=== PATIENT | female | born 1950 | race Caucasian/White ===

== ENCOUNTER 2019-08-11 21:26 | Inpatient (IN) | payer MEDICARE, MEDICAID ==
[2019-08-11] MEDS ORDERED: Ondansetron 4 MG/2 ML SDV IVPUSH ONE (21:54)
--- NOTE | 2019-08-11 21:58 | EDM.PDOC ---
ED HPI GENERAL MEDICAL PROBLEM - General Chief Complaint: Gastrointestinal Problem Stated Complaint: MEDICAL Time Seen by Provider: 08/11/19 21:40 Source of Information: Reports: Patient, EMS, Family History Limitations: Reports: No Limitations - History of Present Illness INITIAL COMMENTS - FREE TEXT/NARRATIVE: 69-year-old female who has had abdominal symptoms for the past month including weight loss and persistent diarrhea, over the past 2 days has had decreased bowel movements but increased abdominal distention and pain. Today she has developed some significant nausea and vomiting and even more pain. No back pain , urinary symptoms, chest pain or shortness of breath. She has a gastroenterology consult on Tuesday. Onset: Gradual Duration: Day(s): (Pain and distention for 2 to 3 days, nausea and vomiting for 12 hours) Location: Reports: Abdomen Associated Symptoms: Reports: Other (Rheumatoid arthritis and migraine headaches ). Denies: Fever/Chills abd Pain Score (Numeric/FACES): 6 - Related Data Allergies Allergy/AdvReac Type Severity Reaction Status Date / Time No Known Allergies Allergy Verified 08/11/19 21:31 Home Meds: Home Meds Bismuth Subsalicylate [Pepto-Bismol] 15 ml PO TID PRN 08/11/19 [History] Loperamide HCl [Imodium A-D] 2 mg PO BID PRN 08/11/19 [History] ZOLMitriptan [Zolmitriptan] 5 mg PO DAILY PRN 08/12/19 [History] Past Medical History Gastrointestinal History: Reports: Chronic Diarrhea DISPATCHER RELAY History: Reports: Neurological History: Reports: Migraines Endocrine/Metabolic History: Reports: Other (See Below) Other Endocrine/Metabolic History: hx Graves disease - Past Surgical History GI Surgical History: Reports: Appendectomy, Small Bowel Endocrine Surgical History: Reports: Other (See Below) Other Endocrine Surgeries/Procedures: thyroid radiation Social & Family History - Tobacco Use Smoking Status *Q: Current Every Day Smoker Years of Tobacco use: 50 Packs/Tins Daily: 0.5 - Caffeine Use Caffeine Use: Reports: Tea - Recreational Drug Use Recreational Drug Use: No ED ROS GENERAL - Review of Systems Review Of Systems: See Below Constitutional: Reports: Malaise, Decreased Appetite. Denies: Fever, Chills HEENT: Reports: No Symptoms Respiratory: Denies: Shortness of Breath Cardiovascular: Denies: Chest Pain GI/Abdominal: Reports: Abdominal Pain, Diarrhea (Diarrhea for the past month, but not for the past 2 to 3 days), Distension (Feels bloated), Nausea, Vomiting : Reports: No Symptoms Musculoskeletal: Reports: Other (Rheumatoid arthritis symptoms) Neurological: Reports: Headache ED EXAM, GI/ABD - Physical Exam Exam: See Below Exam Limited By: No Limitations General Appearance: Alert, No Apparent Distress Eyes: Bilateral: Normal Appearance (No jaundice) Throat/Mouth: Other (Normal-appearing hydration, some dental decay) Head: Atraumatic Respiratory/Chest: No Respiratory Distress, Lungs Clear Cardiovascular: Regular Rate, Rhythm, Tachycardia (Mild tachycardia) GI/Abdominal Exam: Tender (Very tender to palpation, especially periumbilical into the left upper quadrant. Some guarding is present. Abdomen does feel distended), Abnormal Bowel Sounds (Hypoactive bowel sounds) Extremities: Normal Inspection Neurological: Alert, Oriented, No Motor/Sensory Deficits Psychiatric: Flat Affect Skin Exam: Warm, Dry Course - Vital Signs Last Recorded V/S: Last Vital Signs Temp 97.2 F 08/12/19 13:30 Pulse 71 08/12/19 14:15 Resp 16 08/12/19 14:15 BP 115/55 L 08/12/19 14:15 Pulse Ox 98 08/12/19 14:15 - Orders/Labs/Meds Orders: Medication Orders Ropivacaine 24 ml/Dexamethasone 8 mg/Epinephrine HCl 0.4 mg/ Sodium Chloride 53.6 ml 0 ml NERVRT ASDIRECTED [facility] Last Admin: 08/12/19 11:51 Dose: 80 syringe Diphenhydramine HCl (Benadryl) 25 mg IVPUSH Q4H PRN PRN Reason: Itching Promethazine HCl 12.5 mg/ (Sodium Chloride) 50.5 mls @ 200 mls/hr IV Q8H PRN PRN Reason: Nausea/Vomiting Sodium Chloride (Normal Saline) 1,000 mls @ 125 mls/hr IV ASDIRECTED [facility] Last Admin: 08/12/19 15:11 Dose: 125 mls/hr Infusion: 08/12/19 15:11 Dose: 125 mls/hr Admin: 08/12/19 08:10 Dose: 125 mls/hr Infusion: 08/12/19 08:10 Dose: 125 mls/hr Admin: 08/12/19 01:02 Dose: 125 mls/hr Cefazolin Sodium/Dextrose 1 gm (/ Premix) 50 mls @ 100 mls/hr IV Q8H DEBI Morphine Sulfate (Morphine) 3 mg IVPUSH Q1H PRN PRN Reason: SEVERE PAIN Last Admin: 08/12/19 09:12 Dose: 3 mg Nicotine (Habitrol) 14 mg TRDERM DAILY PRN PRN Reason: tobacco user Ondansetron HCl (Zofran) 4 mg IVPUSH Q8H PRN PRN Reason: Nausea/Vomiting Last Admin: 08/12/19 12:27 Dose: 4 mg Admin: 08/12/19 04:24 Dose: 4 mg Scopolamine (Transderm-Scop) 1.5 mg TOP Q72H PRN PRN Reason: Nausea Labs: Laboratory Tests 08/11/19 08/11/19 Range/Units 21:53 22:06 WBC 15.8 H (4.5-11.0) K/uL RBC 4.98 (3.30-5.50) M/uL Hgb 15.6 H (12.0-15.0) g/dL Hct 46.4 (36.0-48.0) % MCV 93 (80-98) fL MCH 31 (27-31) pg MCHC 34 (32-36) % Plt Count 422 H (150-400) K/uL Neut % (Auto) 79 H (36-66) % Lymph % (Auto) 10 L (24-44) % [place] % (Auto) 11 H (2-6) % Eos % (Auto) 1 L (2-4) % Baso % (Auto) 0 (0-1) % Sodium 140 (140-148) mmol/L Potassium 4.0 (3.6-5.2) mmol/L Chloride 98 L (100-108) mmol/L Carbon Dioxide 34 H (21-32) mmol/L Anion Gap 12.0 (5.0-14.0) mmol/L BUN 15 (7-18) mg/dL Creatinine 0.8 (0.6-1.0) mg/dL Est Cr Clr Drug Dosing 50.33 mL/min Estimated GFR (MDRD) > 60 (>60) Glucose 128 H (74-106) mg/dL Calcium 9.2 (8.5-10.1) mg/dL Total Bilirubin 0.3 (0.2-1.0) mg/dL AST 18 (15-37) U/L ALT 16 (12-78) U/L Alkaline Phosphatase 85 (46-116) U/L Total Protein 7.1 (6.4-8.2) g/dL Albumin 3.4 (3.4-5.0) g/dL Globulin 3.7 H (2.3-3.5) g/dL Albumin/Globulin Ratio 0.9 L (1.2-2.2) Lipase 82 (73-393) U/L Meds: Medications Generic Name Dose Route Start Last Admin Trade Name Freq PRN Reason Stop Dose Admin Ropivacaine 24 ml/ 0 ml 08/12/19 11:00 08/12/19 11:51 Dexamethasone 8 mg/ NERVRT 80 syringe Epinephrine HCl 0.4 mg/ Sodium ASDIRECTED DEBI Administration Chloride 53.6 ml Diphenhydramine HCl 25 mg 08/11/19 23:51 Benadryl IVPUSH Q4H PRN Itching Promethazine HCl 12.5 mg/ 50.5 mls @ 200 mls/hr 08/11/19 23:51 Sodium Chloride IV Q8H PRN Nausea/Vomiting Sodium Chloride 1,000 mls @ 125 mls/hr 08/11/19 23:45 08/12/19 15:11 Normal Saline IV 125 mls/hr ASDIRECTED DEBI Administration Cefazolin Sodium/Dextrose 1 gm 50 mls @ 100 mls/hr 08/12/19 18:00 / Premix IV Q8H DEBI Morphine Sulfate 3 mg 08/12/19 08:00 08/12/19 09:12 Morphine IVPUSH 3 mg Q1H PRN Administration SEVERE PAIN Nicotine 14 mg 08/11/19 23:51 Habitrol TRDERM DAILY PRN tobacco user Ondansetron HCl 4 mg 08/11/19 23:51 08/12/19 12:27 Zofran IVPUSH 4 mg Q8H PRN Administration Nausea/Vomiting Scopolamine 1.5 mg 08/11/19 23:51 Transderm-Scop TOP Q72H PRN Nausea Discontinued Medications Generic Name Dose Route Start Last Admin Trade Name Freq PRN Reason Stop Dose Admin Bupivacaine HCl/Epinephrine Bitart Confirm 08/12/19 10:02 08/12/19 11:55 Marcaine 0.5%/Epinephrine 1:200,000 Administered 08/12/19 10:03 40 ml Dose Administration 50 ml .ROUTE .STK-MED ONE Cefazolin Sodium Confirm 08/12/19 11:01 Ancef Administered 08/12/19 11:02 Dose 2 gm .ROUTE .STK-MED ONE Dexamethasone Confirm 08/12/19 10:32 Dexamethasone Administered 08/12/19 10:33 Dose 4 mg .ROUTE .STK-MED ONE Fentanyl Confirm 08/12/19 10:31 Sublimaze Administered 08/12/19 10:32 Dose 250 mcg .ROUTE .STK-MED ONE Glycopyrrolate Confirm 08/12/19 10:32 Robinul Administered 08/12/19 10:33 Dose 1 mg .ROUTE .STK-MED ONE Sodium Chloride 1,000 mls @ 500 mls/hr 08/11/19 22:00 08/11/19 22:07 Normal Saline IV 500 mls/hr ASDIRECTED DEBI Administration Metronidazole 500 mg/ Premix 100 mls @ 100 mls/hr 08/12/19 11:15 08/12/19 11: 05 IV 08/12/19 12:14 100 mls/hr ONETIME ONE Administration Sodium Chloride Confirm 08/12/19 11:01 Normal Saline Administered 08/12/19 11:02 Dose 10 mls @ as directed .ROUTE .STK-MED ONE Lidocaine HCl 10 ml 08/11/19 23:49 08/12/19 00:01 Xylocaine 2% Jelly MUCMEM 08/11/19 23:50 10 ml ONETIME ONE Administration Midazolam HCl 3 mg 08/11/19 23:49 08/12/19 00:03 Versed 1 Mg/Ml IVPUSH 08/11/19 23:50 3 mg ONETIME ONE Administration Morphine Sulfate 1 - 3 mg 08/12/19 00:43 08/12/19 04:02 Morphine IVPUSH 2 mg Q1H PRN Administration Pain Neostigmine Methylsulfate Confirm 08/12/19 10:32 Neostigmine Administered 08/12/19 10:33 Dose 5 mg .ROUTE .STK-MED ONE Ondansetron HCl 4 mg 08/11/19 21:54 08/11/19 22:06 Zofran IVPUSH 08/11/19 21:55 4 mg ONETIME ONE Administration Ondansetron HCl Confirm 08/12/19 10:32 Zofran Administered 08/12/19 10:33 Dose 4 mg .ROUTE .STK-MED ONE Propofol Confirm 08/12/19 10:32 Diprivan 20 Ml Administered 08/12/19 10:33 Dose 200 mg .ROUTE .STK-MED ONE Rocuronium [place] Confirm 08/12/19 10:32 Zemuron Administered 08/12/19 10:33 Dose 50 mg .ROUTE .STK-MED ONE Succinylcholine Chloride Confirm 08/12/19 10:32 Quelicin Administered 08/12/19 10:33 Dose 200 mg .ROUTE .STK-MED ONE - Re-Assessments/Exams Free Text/Narrative Re-Assessment/Exam: 08/11/19 21:57 An IV was started and the patient was hydrated with 500 cc of normal saline an hour. CBC CMP and lipase were obtained and a CT of the abdomen without contrast will be obtained. Patient presents with a likely bowel obstruction pattern. 08/11/19 23:10 Impression: 1.Moderate to high-grade distal small bowel obstruction. Transition point suspected in the central lower abdomen. There is moderate amount of free fluid and mesenteric edema. Surgical consultation would be recommended. 2.Colonic bowel wall thickening of the sigmoid colon and descending colon could be related to colitis. 08/11/19 23:18 Above findings were discussed with Dr. Bee, he kindly agreed, patient will be given an NG, fluid, pain control and reassessment in the morning. 08/11/19 23:50 Patient had a significant amount of discomfort and could not cooperate with placing the NG tube. She was then given topical lidocaine intranasally and 3 mg of IV Versed as an anxiolytic to help with the placement. Departure - Departure Time of Disposition: 00:21 Disposition: Admitted As Inpatient 68 Clinical Impression: Small bowel obstruction Abdominal pain Qualifiers: Abdominal location: generalized Qualified Code(s): R10.84 - Generalized abdominal pain - Discharge Information Sepsis Event Note - Evaluation Sepsis Screening Result: No Definite Risk - Focused Exam Date Exam was Performed: 08/12/19 Time Exam was Performed: 17:25
[2019-08-11] MEDS ORDERED: Sodium Chloride 0.9% 1,000 ML IV SCH (22:00)
--- NOTE | 2019-08-11 23:05 | CRLCT ---
INDICATION: Pain abdominal distention. TECHNIQUE: Noncontrast CT abdomen and pelvis no. COMPARISON: Studies are available. FINDINGS: Heart size is normal clear there is no pericardial effusion. Emphysema. Unenhanced liver demonstrates low-attenuation lesions in the liver incompletely assessed but may represent possible cysts. Liver granuloma. Gallbladder appears unremarkable. Common bile duct is mildly prominent. Adrenal glands are unremarkable. Small hiatal hernia. No abdominal aortic aneurysm. Nonobstructing right lower pole calculus. Kidneys are unremarkable there is no hydronephrosis. There are diffuse dilated small bowel loops measure up to 5 cm. The distal small bowel loops are decompressed. Probable transition point in the lower central abdomen, series 3 image 86 series 2 image 171. There is fluid in the abdomen and pelvis. Mesenteric edema. No free air. There is diffuse colonic bowel wall thickening in the sigmoid colon and descending colon which may be related to colitis. No free air. Rounded left uterine density could be related to a fibroid. No suspicious bony lesions. Impression: 1.Moderate to high-grade distal small bowel obstruction. Transition point suspected in the central lower abdomen. There is moderate amount of free fluid and mesenteric edema. Surgical consultation would be recommended. 2.Colonic bowel wall thickening of the sigmoid colon and descending colon could be related to colitis. Please note that all CT scans at this facility use dose modulation, iterative reconstruction, and/or weight-based dosing when appropriate to reduce radiation dose to as low as reasonably achievable. Dictated by Ashley Zamora MD @ Aug 11 2019 10:43PM Signed by Dr. Ashley Zamora @ Aug 11 2019 11:05PM
[2019-08-11] MEDS ORDERED: Midazolam 1 MG/ML 5 ML SDV IVPUSH ONE (23:49)
[2019-08-11] MEDS ORDERED: Lidocaine 2% Jelly 10 ML Urojet MUCMEM ONE (23:49)
[2019-08-11] MEDS ORDERED: Promethazine 12.5 MG in Sodium Chloride 0.9% 50 ML IV PRN (23:51)
[2019-08-11] MEDS ORDERED: Nicotine 14 MG/24 Hr Patch TRDERM PRN (23:51)
[2019-08-11] MEDS ORDERED: Scopolamine 1.5 MG Transdermal Patch TOP PRN (23:51)
[2019-08-11] MEDS ORDERED: diphenhydrAMINE 50 MG/ML SDV IVPUSH PRN (23:51)
[2019-08-12] MEDS: Sodium Chloride 0.9% 1,000 ML IV SCH ×4 (01:02→23:36)
[2019-08-12] MEDS: Morphine 4 MG/ML Syringe IVPUSH PRN ×5 (01:22→23:41)
[2019-08-12] MEDS: Ondansetron 4 MG/2 ML SDV IVPUSH PRN ×2 (04:24→12:27)
[2019-08-12] MEDS ORDERED: Bupivacaine 0.5%/EPINEPHrine 1:200,000 50 ML MDV ONE (10:02)
[2019-08-12] MEDS ORDERED: fentaNYL 250 MCG/5 ML SDV ONE (10:31)
[2019-08-12] MEDS ORDERED: Glycopyrrolate 0.2 MG/ML 5 ML MDV ONE (10:32)
[2019-08-12] MEDS ORDERED: Neostigmine Methylsulfate 1 MG/ML 5 ML Syringe ONE (10:32)
[2019-08-12] MEDS ORDERED: Rocuronium 50 MG/5 ML Vial ONE (10:32)
[2019-08-12] MEDS ORDERED: Succinylcholine 200 MG/10 ML MDV ONE (10:32)
[2019-08-12] MEDS ORDERED: Ondansetron 4 MG/2 ML SDV ONE (10:32)
[2019-08-12] MEDS ORDERED: Propofol 200 MG/20 ML SDV ONE (10:32)
[2019-08-12] MEDS ORDERED: Dexamethasone 4 MG/ML SDV ONE (10:32)
[2019-08-12] MEDS ORDERED: ceFAZolin 2 GM in Premix Bag 1 BAG IV ONE (11:00)
[2019-08-12] MEDS ORDERED: ceFAZolin 1 GM Vial ONE (11:01)
[2019-08-12] MEDS ORDERED: Sodium Chloride 0.9% 10 ML ONE (11:01)
[2019-08-12] MEDS ORDERED: metroNIDAZOLE/Normal Saline 500 MG in Premix Bag 1 BAG IV ONE (11:15)
--- NOTE | 2019-08-12 13:15 | HP ---
REASON FOR CONSULTATION: This is a pleasant 69-year-old female who has had abdominal pain. This is a recurrent problem. She did have this several years ago, required lysis of adhesions. This has been approximately over last 2 days. She does have recent nausea and vomiting. PAST MEDICAL HISTORY: 1. Appendectomy. 2. Active smoker. 3. Migraines. 4. Chronic diarrhea. 5. History of Graves disease. 6. History of thyroid radiation. SOCIAL HISTORY: She does smoke as described above. REVIEW OF SYSTEMS: GENERAL: The patient is comfortable. CONSTITUTIONAL: Decreased appetite. HEENT: No symptoms. RESPIRATORY: No shortness of breath. CARDIOVASCULAR: No chest pain. GASTROINTESTINAL: As described above. GENITOURINARY: No dysuria. MUSCULOSKELETAL: History of rheumatoid arthritis type symptoms. The remainder of systems reviewed and are negative. PHYSICAL EXAMINATION: VITAL SIGNS: Temperature 97.3, pulse 92, blood pressure 133/80, respirations 16, 96% on room air. HEENT: Pupils are equal. NECK: Supple. LUNGS: Clear. CARDIOVASCULAR: Regular rhythm and rate. RESPIRATORY: Lungs clear to auscultation bilaterally. ABDOMEN: Bowel sounds positive. Mild distention. Mild guarding. No rebound. EXTREMITIES: Full range of motion. NEUROLOGIC: Oriented x3. PSYCHIATRIC: No gross depression. LABORATORY DATA: White blood cell count is 15.8, hemoglobin 15.6. Creatinine is functioning normal. IMAGING DATA: I did review a CT scan, which suggests a possible small bowel obstruction. PLAN: There are some disconcerting facts about her CT scan interpretation. We will admit the patient for NG tube overnight. Re-evaluate x-ray films in the morning. Most likely, the patient will probably require diagnostic laparoscopy if she is refractory to this treatment. William Bee MD /[id number]
[2019-08-12] MEDS: ceFAZolin 1 GM in Premix Bag 1 BAG IV SCH (17:47)
[2019-08-13] MEDS: ceFAZolin 1 GM in Premix Bag 1 BAG IV SCH ×3 (03:12→17:03)
[2019-08-13] MEDS: Morphine 4 MG/ML Syringe IVPUSH PRN ×4 (05:03→21:11)
--- NOTE | 2019-08-13 08:18 | OR ---
DATE OF PROCEDURE: 08/11/2019 SURGEON: William Bee MD PROCEDURES: 1. Diagnostic laparoscopy. 2. Reduction of internal hernia due to adhesions. 3. Lysis of adhesions, single band. 4. Drainage of peritoneal fluid ([id number]). COMPLICATIONS: None. 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 ANESTHESIA: General/local. INDICATIONS: This is a pleasant female who had signs of bowel obstruction on CT scan. She was explained the risks, benefits, alternatives, limitations including, but not limited to infection, bleeding, perforation, injury to abdominal structures, fistula, possibility of open surgery and other risks not listed here. The patient understands these risks and wished to proceed. PROCEDURE IN DETAIL: She was taken to the operating room. A diagnostic laparoscopy was then commenced. Entered the abdomen without abnormality. A drop test was performed without abnormality, and the abdomen was subsequently insufflated without abnormality. This was followed by a 10 mm Optiview trocar. No evidence of injury was noted during entry. Two additional 5 mm ports were entered under direct visualization. The bowel was inspected and there was what appeared to be probably a partial small-bowel obstruction, as segments of the bowel were dilated versus non dilated. The bowel was then identified at the ileocecal valve and ran in a retrograde fashion. During this point, an obvious transition point associated with small adhesion, which was lysed. No difficulty was encountered. Bowel was then ran. After being ran in a retrograde fashion, it was then ran in an antegrade fashion. No other abnormalities were noted. Although it was moderately distended, this is the only abnormality noted. Prior to this, in the right upper quadrant and left lower quadrant, a greenish-type fluid was noted. This was cultured and subsequently irrigated and removed. The air was deflated and the wounds were irrigated and closed with 3-0 Vicryl and 4-0 Vicryl in interrupted running fashion. The patient tolerated the procedure well. William Bee MD /[id number]
--- NOTE | 2019-08-13 10:43 | CR ---
Abdomen 2V AP Flat Upright CLINICAL HISTORY: SBO FINDINGS: NG tube is been placed in the stomach. There is moderate diffuse small bowel distention with scattered air-fluid levels. There is some air in the transverse colon and splenic flexure. No free air is seen. IMPRESSION: Persistent diffuse small bowel distention with scattered air-fluid levels suggesting a high-grade obstruction. Interval placement of an NG tube
--- NOTE | 2019-08-13 10:47 | PN ---
DATE OF SERVICE: 08/13/2019 SUBJECTIVE: The patient is doing better today. Pain is well controlled. No nausea, vomiting, shortness of breath, or chest pain. OBJECTIVE: VITAL SIGNS: Stable. She is afebrile. CARDIOVASCULAR: Regular rhythm and rate. RESPIRATORY: Lungs clear to auscultation bilaterally. ABDOMEN: Bowel sounds positive. SKIN: Incision is healing well ASSESSMENT: Status post small bowel volvulus. PLAN: We will continue NG tube at this time. Recheck her labs in the morning. Continue same IV fluids. William Bee MD /[id number]
[2019-08-13] MEDS: Sodium Chloride 0.9% 1,000 ML IV SCH (16:39)
[2019-08-14] MEDS: Sodium Chloride 0.9% 1,000 ML IV SCH ×2 (01:21→10:39)
[2019-08-14] MEDS: ceFAZolin 1 GM in Premix Bag 1 BAG IV SCH ×3 (01:21→18:08)
[2019-08-14] MEDS: Morphine 4 MG/ML Syringe IVPUSH PRN ×2 (02:41→23:47)
--- NOTE | 2019-08-14 08:15 | PN ---
DATE OF SERVICE: 08/14/2019 SUBJECTIVE: The patient has improved overnight. She is now having bowel movements. OBJECTIVE: VITAL SIGNS: Stable. CARDIOVASCULAR: Regular rhythm and rate. RESPIRATORY: Lungs clear to auscultation bilaterally. ABDOMEN: Mildly distended. No rebound. No guarding. SKIN: Incisions healing well ASSESSMENT: Status post internal hernia repair. PLAN: We will advance her diet today very slowly, remove her NG tube. As far as for bladder infection, white blood cell count is now normalizing. We will continue IV antibiotics until switch over to p.o. William Bee MD /[id number]
[2019-08-15] MEDS: ceFAZolin 1 GM in Premix Bag 1 BAG IV SCH (02:29)
--- NOTE | 2019-08-15 11:41 | DISCH ---
DISCHARGE DIAGNOSIS: Status post internal hernia. SUMMARY OF HOSPITAL COURSE: A pleasant female who underwent an uneventful hernia repair laparoscopically. Prior to discharge, her pain was well controlled. She had no nausea, vomiting, shortness of breath, or chest pain. She is having bowel movements. No specific concerns. FOLLOWUP: With Surgery in 7 to 14 days. ACTIVITY: No lifting greater than 30 pounds for 30 days. GENERAL DISPOSITION: Of note, the patient did have a bladder infection prior to her emergency surgery and was then treated with antibiotics intraoperatively and postoperatively.
--- NOTE | 2019-08-15 11:51 | PN ---
DATE OF SERVICE: 08/15/2019 SUBJECTIVE: The patient is doing very well today. Pain is controlled with NSAIDs only. No nausea, vomiting, shortness of breath, or chest pain. She is having multiple bowel movements, showering. No specific concerns. OBJECTIVE: VITAL SIGNS: Stable. CARDIOVASCULAR: Regular rhythm and rate. RESPIRATORY: Lungs are clear to consultation bilaterally. ABDOMEN: Bowel sounds are positive. Nontender. Incision is healing well. ASSESSMENT AND PLAN: Status post internal hernia repair. PLAN: The patient will be discharged today. Please see discharge summary for further details. William Bee MD /[id number]
== END 2019-08-15 10:34 | disposition home or self-care (01) | DRG 337 ==
LOC: JP.ED 21:26 → JP.2SS 23:28
PROVIDERS: ADMIT Surgery; ATTEND Surgery
PROC: 0DN84ZZ Release Small Intestine, Percutaneous Endoscopic Approach (ICD-10-PCS; principal; 2019-08-11)
DX: K56.609 Unspecified intestinal obstruction, unspecified as to partial versus complete obstruction (principal); K52.9 Noninfective gastroenteritis and colitis, unspecified; K56.51 Intestinal adhesions [bands], with partial obstruction; Z92.3 Personal history of irradiation; Z86.39 Personal history of other endocrine, nutritional and metabolic disease; G43.909 Migraine, unspecified, not intractable, without status migrainosus; F17.200 Nicotine dependence, unspecified, uncomplicated; F17.210 Nicotine dependence, cigarettes, uncomplicated; M06.9 Rheumatoid arthritis, unspecified; Z90.49 Acquired absence of other specified parts of digestive tract; Z79.899 Other long term (current) drug therapy
CPT/HCPCS: 36415; 74176; 80053; 83690; 85025; 96361; 96374; 99284; 99285; J2405; J7030; 36600; 74019; 74019-26; 80048; 81001; 85027; 87070; 87075; 87077; 87186; 87205; A9270-GY; J0171; J0330; J0690; J1100; J2250; J2270; J2704; J2710; J2795; J3010; J3490; J7050

== ENCOUNTER 2019-09-01 07:33 | Inpatient (IN) | payer MEDICAID, MEDICARE ==
[2019-09-01] MEDS ORDERED: Lactated Ringers 1,000 ML IV SCH ×2 (08:15→14:15)
[2019-09-01] MEDS ORDERED: Sodium Chloride 0.9% 10 ML Syringe FLUSH PRN ×2 (08:15→14:15)
[2019-09-01] MEDS ORDERED: Ondansetron 4 MG/2 ML SDV IVPUSH ONE ×2 (08:17→14:15)
[2019-09-01] MEDS ORDERED: Ketorolac 30 MG/ML SDV IVPUSH ONE (08:17)
--- NOTE | 2019-09-01 08:20 | EDM.PDOC ---
ED HPI GENERAL MEDICAL PROBLEM - General Chief Complaint: General Stated Complaint: TWISTED COLOL SURGER AUGUST 12 2019 Time Seen by Provider: 09/01/19 08:10 Source of Information: Reports: Patient, Family, RN Notes Reviewed History Limitations: Reports: No Limitations - History of Present Illness INITIAL COMMENTS - FREE TEXT/NARRATIVE: 69-year-old female presents emergency department a complaint of nausea vomiting diarrhea that has gotten significantly worse over the last 48 hours she does have a known history of chronic diarrhea has been evaluated by gastroenterology enteric pathogen panel was negative but she did have an elevated calprotectin level concern for some type of inflammatory bowel disease. She states over the last 2 days she has been unable to keep any food products down no liquids down she feels very weak, she denies any travel no fevers no shortness of breath or chest pain - Related Data Allergies Allergy/AdvReac Type Severity Reaction Status Date / Time No Known Allergies Allergy Verified 09/01/19 07:55 Home Meds: Home Meds Bismuth Subsalicylate [Pepto-Bismol] 15 ml PO TID PRN 08/11/19 [History] Loperamide HCl [Imodium A-D] 2 mg PO BID PRN 08/11/19 [History] ZOLMitriptan [Zolmitriptan] 5 mg PO ASDIRECTED PRN 08/12/19 [History] Past Medical History Gastrointestinal History: Reports: Chronic Diarrhea [employer] History: Reports: Neurological History: Reports: Migraines Endocrine/Metabolic History: Reports: Other (See Below) Other Endocrine/Metabolic History: hx Graves disease - Past Surgical History GI Surgical History: Reports: Appendectomy, Hernia Repair/Other, Lysis of Adhesions, Small Bowel Endocrine Surgical History: Reports: Other (See Below) Other Endocrine Surgeries/Procedures: thyroid radiation Social & Family History - Tobacco Use Smoking Status *Q: Current Every Day Smoker Years of Tobacco use: 40 Packs/Tins Daily: 0.2 - Caffeine Use Caffeine Use: Reports: Tea - Recreational Drug Use Recreational Drug Use: No ED ROS GENERAL - Review of Systems Review Of Systems: See Below Constitutional: Reports: Weakness. Denies: Fever, Chills HEENT: Reports: No Symptoms Respiratory: Reports: No Symptoms Cardiovascular: Reports: No Symptoms GI/Abdominal: Reports: Abdominal Pain (Cramping), Diarrhea, Nausea, Vomiting : Reports: No Symptoms Musculoskeletal: Reports: No Symptoms ED EXAM, GENERAL - Physical Exam Exam: See Below Exam Limited By: No Limitations General Appearance: Alert, WD/WN, No Apparent Distress Respiratory/Chest: No Respiratory Distress, Lungs Clear, Normal Breath Sounds, No Accessory Muscle Use, Chest Non-Tender Cardiovascular: Regular Rate, Rhythm, No Murmur GI/Abdominal: Normal Bowel Sounds, Soft, Non-Tender, Distended Back Exam: Normal Inspection, Full Range of Motion. No: CVA Tenderness (R), CVA Tenderness (L) Extremities: Normal Inspection, Normal Range of Motion, No Pedal Edema Course - Vital Signs Last Recorded V/S: Last Vital Signs Temp 94.4 F L 09/01/19 07:55 Pulse 117 H 09/01/19 07:55 Resp 18 09/01/19 07:55 BP 116/77 09/01/19 07:55 Pulse Ox 94 L 09/01/19 07:55 - Orders/Labs/Meds Orders: Active Orders 24 hr Category Date Time Status Peripheral IV Care [RC] . DIRECTED Care 09/01/19 08:16 Active Abdomen 1V Upright [CR] Urgent Exams 09/01/19 08:15 Taken UA W/MICROSCOPIC [URIN] Urgent Lab 09/01/19 08:15 Ordered Iopamidol [Isovue-300 (61%)] Med 09/01/19 09:20 Active 65 ml IV . DIRECTED PRN Lactated Ringers [Ringers, Lactated] 1,000 ml Med 09/01/19 08:15 Active IV ASDIRECTED Sodium Chloride 0.9% [Normal Saline] 74 ml Med 09/01/19 09:30 Active IV ASDIRECTED Sodium Chloride 0.9% [Saline Flush] Med 09/01/19 08:15 Active 10 ml FLUSH ASDIRECTED PRN Sodium Chloride 0.9% [Saline Flush] Med 09/01/19 09:30 Active 10 ml FLUSH ONETIME Nasogastric Orogastric Tube Insertion [OM.PC] Routine Oth 09/01/19 10:16 Ordered Peripheral IV Insertion Adult [OM.PC] Urgent Oth 09/01/19 08:15 Ordered Medication Orders Lactated Ringer's (Ringers, Lactated) 1,000 mls @ 999 mls/hr IV ASDIRECTED DEBI Last Admin: 09/01/19 09:03 Dose: 999 mls/hr Sodium Chloride (Normal Saline) 74 mls @ 3 mls/sec IV ASDIRECTED DEBI Last Admin: 09/01/19 09:29 Dose: 3 mls/sec Iopamidol (Isovue-300 (61%)) 65 ml IV . DIRECTED PRN PRN Reason: RADIOLOGY EXAM Stop: 09/02/19 09:21 Last Admin: 09/01/19 09:29 Dose: 65 ml Sodium Chloride (Saline Flush) 10 ml FLUSH ASDIRECTED PRN PRN Reason: Keep Vein Open Last Admin: 09/01/19 09:03 Dose: 10 ml Sodium Chloride (Saline Flush) 10 ml FLUSH ONETIME DEBI Last Admin: 09/01/19 09:29 Dose: 10 ml Labs: Laboratory Tests 09/01/19 09/01/19 09/01/19 Range/Units 08:27 08:27 08:27 WBC 9.6 (4.5-11.0) K/uL RBC 4.79 (3.30-5.50) M/uL Hgb 15.1 H D (12.0-15.0) g/dL Hct 43.2 (36.0-48.0) % MCV 90 (80-98) fL MCH 32 H (27-31) pg MCHC 35 (32-36) % Plt Count 467 H (150-400) K/uL Neut % (Auto) 70 H (36-66) % Lymph % (Auto) 18 L (24-44) % [place] % (Auto) 11 H (2-6) % Eos % (Auto) 0 L (2-4) % Baso % (Auto) 1 (0-1) % Sodium 135 L (140-148) mmol/L Potassium 4.2 (3.6-5.2) mmol/L Chloride 96 L (100-108) mmol/L Carbon Dioxide 30 (21-32) mmol/L Anion Gap 13.2 (5.0-14.0) mmol/L BUN 27 H D (7-18) mg/dL Creatinine 0.9 D (0.6-1.0) mg/dL Est Cr Clr Drug Dosing 41.27 mL/min Estimated GFR (MDRD) > 60 (>60) Glucose 130 H (74-106) mg/dL Lactic Acid 2.6 H (0.4-2.0) mmol/L Calcium 8.1 L (8.5-10.1) mg/dL Total Bilirubin 0.4 (0.2-1.0) mg/dL AST 20 (15-37) U/L ALT 19 (12-78) U/L Alkaline Phosphatase 119 H (46-116) U/L Total Protein 6.6 (6.4-8.2) g/dL Albumin 2.9 L (3.4-5.0) g/dL Globulin 3.7 H (2.3-3.5) g/dL Albumin/Globulin Ratio 0.8 L (1.2-2.2) Lipase 24 L (73-393) U/L TSH, Ultra Sensitive (0.358-3.740) uIU/mL 09/01/19 Range/Units 08:27 WBC (4.5-11.0) K/uL RBC (3.30-5.50) M/uL Hgb (12.0-15.0) g/dL Hct (36.0-48.0) % MCV (80-98) fL MCH (27-31) pg MCHC (32-36) % Plt Count (150-400) K/uL Neut % (Auto) (36-66) % Lymph % (Auto) (24-44) % [place] % (Auto) (2-6) % Eos % (Auto) (2-4) % Baso % (Auto) (0-1) % Sodium (140-148) mmol/L Potassium (3.6-5.2) mmol/L Chloride (100-108) mmol/L Carbon Dioxide (21-32) mmol/L Anion Gap (5.0-14.0) mmol/L BUN (7-18) mg/dL Creatinine (0.6-1.0) mg/dL Est Cr Clr Drug Dosing mL/min Estimated GFR (MDRD) (>60) Glucose (74-106) mg/dL Lactic Acid (0.4-2.0) mmol/L Calcium (8.5-10.1) mg/dL Total Bilirubin (0.2-1.0) mg/dL AST (15-37) U/L ALT (12-78) U/L Alkaline Phosphatase (46-116) U/L Total Protein (6.4-8.2) g/dL Albumin (3.4-5.0) g/dL Globulin (2.3-3.5) g/dL Albumin/Globulin Ratio (1.2-2.2) Lipase (73-393) U/L TSH, Ultra Sensitive 2.189 (0.358-3.740) uIU/mL Meds: Medications Generic Name Dose Route Start Last Admin Trade Name Dennise PRN Reason Stop Dose Admin Lactated Ringer's 1,000 mls @ 999 mls/hr 09/01/19 08:15 09/01/19 09:03 Ringers, Lactated IV 999 mls/hr ASDIRECTED DEBI Administration Sodium Chloride 74 mls @ 3 mls/sec 09/01/19 09:30 09/01/19 09:29 Normal Saline IV 3 mls/sec ASDIRECTED DEBI Administration Iopamidol 65 ml 09/01/19 09:20 09/01/19 09:29 Isovue-300 (61%) IV 09/02/19 09:21 65 ml . DIRECTED PRN Administration RADIOLOGY EXAM Sodium Chloride 10 ml 09/01/19 08:15 09/01/19 09:03 Saline Flush FLUSH 10 ml ASDIRECTED PRN Administration Keep Vein Open Sodium Chloride 10 ml 09/01/19 09:30 09/01/19 09:29 Saline Flush FLUSH 10 ml ONETIME DEBI Administration Discontinued Medications Generic Name Dose Route Start Last Admin Trade Name Dennise PRN Reason Stop Dose Admin Ketorolac Tromethamine 30 mg 09/01/19 08:17 09/01/19 09:03 Toradol IVPUSH 09/01/19 08:18 30 mg ONETIME ONE Administration Ondansetron HCl 4 mg 09/01/19 08:17 09/01/19 09:03 Zofran IVPUSH 09/01/19 08:18 4 mg ONETIME ONE Administration Departure - Departure Time of Disposition: 10:42 Disposition: Admitted As Inpatient 68 Condition: Fair Clinical Impression: Small bowel obstruction - Discharge Information Referrals: PCP,None [Primary Care Provider] - Forms: ED Department Discharge Sepsis Event Note - Evaluation Sepsis Screening Result: No Definite Risk - Focused Exam Vital Signs: Vital Signs Temp Pulse Resp BP Pulse Ox 09/01/19 07:55 94.4 F L 117 H 18 116/77 94 L 09/01/19 07:50 94.4 F L 117 H 18 116/77 94 L Date Exam was Performed: 09/01/19 Time Exam was Performed: 10:41 - My Orders Last 24 Hours: My Active Orders 09/01/19 08:15 Abdomen 1V Upright [CR] Urgent UA W/MICROSCOPIC [URIN] Urgent Lactated Ringers [Ringers, Lactated] 1,000 ml IV ASDIRECTED Sodium Chloride 0.9% [Saline Flush] 10 ml FLUSH ASDIRECTED PRN Peripheral IV Insertion Adult [OM.PC] Urgent 09/01/19 08:16 Peripheral IV Care [RC] . DIRECTED 09/01/19 09:20 Iopamidol [Isovue-300 (61%)] 65 ml IV . DIRECTED PRN 09/01/19 09:30 Sodium Chloride 0.9% [Normal Saline] 74 ml IV ASDIRECTED Sodium Chloride 0.9% [Saline Flush] 10 ml FLUSH ONETIME 09/01/19 10:16 Nasogastric Orogastric Tube Insertion [OM.PC] Routine - Assessment/Plan Last 24 Hours: My Active Orders 09/01/19 08:15 Abdomen 1V Upright [CR] Urgent UA W/MICROSCOPIC [URIN] Urgent Lactated Ringers [Ringers, Lactated] 1,000 ml IV ASDIRECTED Sodium Chloride 0.9% [Saline Flush] 10 ml FLUSH ASDIRECTED PRN Peripheral IV Insertion Adult [OM.PC] Urgent 09/01/19 08:16 Peripheral IV Care [RC] . DIRECTED 09/01/19 09:20 Iopamidol [Isovue-300 (61%)] 65 ml IV . DIRECTED PRN 09/01/19 09:30 Sodium Chloride 0.9% [Normal Saline] 74 ml IV ASDIRECTED Sodium Chloride 0.9% [Saline Flush] 10 ml FLUSH ONETIME 09/01/19 10:16 Nasogastric Orogastric Tube Insertion [OM.PC] Routine Plan: Assessment Acuity = acute Site and laterality = small bowel obstruction Etiology = unknown Manifestations = nausea vomiting, abdominal pain Location of injury = Home Lab values = CBC unremarkable CMP unremarkable lactic acid elevated 2.6 consistent lactic acidosis TSH normal at 2.19 CT scan describes as high-grade small bowel obstruction transition at the distal ileum Plan Call discussed case with hospitalist on-call at 1030 he kindly agreed to come and evaluate the patient in the emergency department for admission NG tube will be placed This note was dictated using [employer] voice recognition software please call with any questions on syntax or grammar.
[2019-09-01] MEDS ORDERED: Iopamidol 612 MG/ML 100 ML Bottle IV PRN (09:20)
[2019-09-01] MEDS ORDERED: Sodium Chloride 0.9% 10 ML Syringe FLUSH SCH (09:30)
--- NOTE | 2019-09-01 10:06 | CRLCT ---
HISTORY: Air-fluid levels. History of surgery. TECHNIQUE: CT abdomen and pelvis with IV contrast. COMPARISON: CT abdomen and pelvis 08/11/2019. FINDINGS: Abdomen: Unchanged cysts in the liver. Several additional subcentimeter hypodense lesions in both lobes liver are too small to characterize. Clustered calcifications in the right lobe of the liver may be calcified granulomas. No bile duct dilation. No pancreatic mass. No spleen lesions. No adrenal nodules. Kidneys enhance symmetrically. No renal mass. No hydronephrosis. Near diffuse mild to moderate dilation of the small bowel with transition to decompressed ileum in the right lower quadrant. Small bowel is mostly fluid-filled. No dilated colon. No free fluid. No bowel pneumatosis. No free intraperitoneal gas. No lymphadenopathy. Abdominal aorta is normal caliber. Mild atherosclerosis. Pelvis: No lymphadenopathy. Musculoskeletal: Osteopenia. Degenerative changes of the spine. Foci of ossification in the gluteal soft tissues bilaterally are likely posttraumatic. Lower chest: Mild pulmonary emphysema. IMPRESSION: 1. High-grade small bowel obstruction with transition in the distal ileum. 2. No pneumatosis or pneumoperitoneum. No free fluid. Dictated by Maurizio Vazquez MD @ 09/01/2019 10:04:13 AM Please note that all CT scans at this facility use dose modulation, iterative reconstruction, and/or weight-based dosing when appropriate to reduce radiation dose to as low as reasonably achievable. Dictated by: Maurizio Vazquez MD @ 09/01/2019 10:04:17 (Electronically Signed)
[2019-09-01] MEDS ORDERED: LORazepam 2 MG/ML SDV IVPUSH ONE (10:56)
[2019-09-01] MEDS ORDERED: LORazepam 2 MG/ML SDV ONE (11:01)
[2019-09-01] MEDS ORDERED: metroNIDAZOLE/Normal Saline 500 MG in Premix Bag 1 BAG IV ONE (11:18)
[2019-09-01] MEDS ORDERED: ceFAZolin 2 GM in Premix Bag 1 BAG IV ONE (11:20)
--- NOTE | 2019-09-01 11:30 | PCM.HP.2 ---
H&P History of Present Illness - General Date of Service: 09/01/19 Admit Problem/Dx: Admission Diagnosis/Problem Admission Diagnosis/Problem Abdominal pain Source of Information: Patient, Family, Provider, RN Notes Reviewed History Limitations: Reports: No Limitations - History of Present Illness Initial Comments - Free Text/Narative: Ms. Armenta is a 69-year-old woman who was admitted through the emergency department with abdominal pain and nausea secondary to a high-grade small bowel obstruction. She had surgery few weeks back for repair of an internal hernia hernia. She has been dealing with ongoing diarrhea over the past few months and has been seeing gastroenterology for evaluation. Over the last few days is developed increased symptoms of nausea and abdominal discomfort described as a cramping pain occurring intermittently. On evaluation in the emergency department CT scan of the abdomen shows evidence of a high-grade obstruction in the ileum. - Related Data Allergies/Adverse Reactions: Allergies Allergy/AdvReac Type Severity Reaction Status Date / Time No Known Allergies Allergy Verified 09/01/19 07:55 Home Medications: Home Meds Bismuth Subsalicylate [Pepto-Bismol] 15 ml PO TID PRN 08/11/19 [History] Loperamide HCl [Imodium A-D] 2 mg PO BID PRN 08/11/19 [History] ZOLMitriptan [Zolmitriptan] 5 mg PO ASDIRECTED PRN 08/12/19 [History] Past Medical History Gastrointestinal History: Reports: Chronic Diarrhea [employer]IST History: Reports: Neurological History: Reports: Migraines Endocrine/Metabolic History: Reports: Other (See Below) Other Endocrine/Metabolic History: hx Graves disease - Past Surgical History GI Surgical History: Reports: Appendectomy, Hernia Repair/Other, Lysis of Adhesions, Small Bowel Endocrine Surgical History: Reports: Other (See Below) Other Endocrine Surgeries/Procedures: thyroid radiation Social & Family History - Tobacco Use Smoking Status *Q: Current Every Day Smoker Years of Tobacco use: 40 Packs/Tins Daily: 0.2 - Caffeine Use Caffeine Use: Reports: Tea - Recreational Drug Use Recreational Drug Use: No H&P Review of Systems - Review of Systems: Review Of Systems: See Below General: Reports: Weakness, Decreased Appetite. Denies: Fever, Chills, Fatigue HEENT: Reports: No Symptoms Pulmonary: Reports: No Symptoms Cardiovascular: Reports: No Symptoms Gastrointestinal: Reports: Abdominal Pain, Anorexia, Distension, Nausea. Denies : Difficulty Swallowing, Flatus, Hematemesis, Hematochezia, Melena, Vomiting Genitourinary: Reports: No Symptoms Musculoskeletal: Reports: No Symptoms Skin: Reports: No Symptoms Psychiatric: Reports: No Symptoms Neurological: Reports: No Symptoms Hematologic/Lymphatic: Reports: No Symptoms Immunologic: Reports: No Symptoms Exam - Exam Exam: See Below - Vital Signs Vital Signs: Last Vital Signs Temp 94.4 F L 09/01/19 07:55 Pulse 117 H 09/01/19 07:55 Resp 18 09/01/19 07:55 BP 116/77 09/01/19 07:55 Pulse Ox 94 L 09/01/19 07:55 Weight: 95 lb 0.308 oz - Exam Quality Assessment: DVT Prophylaxis General: Alert, Oriented, Cooperative, Moderate Distress HEENT: Conjunctiva Clear, Normal Nasal Septum, Posterior Pharynx Clear, Pupils Equal. No: Mucosa Moist & [place] Neck: Supple, Trachea Midline, +2 Carotid Pulse wo Bruit Lungs: Clear to Auscultation, Normal Respiratory Effort, Decreased Breath Sounds Cardiovascular: Regular Rate, Regular Rhythm, Normal S1, Normal S2. No: Systolic Murmur, Diastolic Murmur GI/Abdominal Exam: Soft, No Organomegaly, Distended, Tender. No: Guarding, Rigid, Rebound Back Exam: Normal Inspection, Full Range of Motion Extremities: Non-Tender, No Pedal Edema Skin: Warm, Dry, Intact Neurological: Cranial Nerves Intact, Strength Equal Bilateral, Normal Speech, Normal Tone, Sensation Intact. No: Focal Deficit Neuro Extensive - Mental Status: Alert, Oriented x3, Normal Mood/Affect, Normal Cognition, Memory Intact - Patient Data Lab Results Last 24 hrs: Laboratory Results - last 24 hr 09/01/19 09/01/19 09/01/19 Range/Units 08:27 08:27 08:27 WBC 9.6 (4.5-11.0) K/uL RBC 4.79 (3.30-5.50) M/uL Hgb 15.1 H D (12.0-15.0) g/dL Hct 43.2 (36.0-48.0) % MCV 90 (80-98) fL MCH 32 H (27-31) pg MCHC 35 (32-36) % Plt Count 467 H (150-400) K/uL Neut % (Auto) 70 H (36-66) % Lymph % (Auto) 18 L (24-44) % [place] % (Auto) 11 H (2-6) % Eos % (Auto) 0 L (2-4) % Baso % (Auto) 1 (0-1) % Sodium 135 L (140-148) mmol/L Potassium 4.2 (3.6-5.2) mmol/L Chloride 96 L (100-108) mmol/L Carbon Dioxide 30 (21-32) mmol/L Anion Gap 13.2 (5.0-14.0) mmol/L BUN 27 H D (7-18) mg/dL Creatinine 0.9 D (0.6-1.0) mg/dL Est Cr Clr Drug Dosing 41.27 mL/min Estimated GFR (MDRD) > 60 (>60) Glucose 130 H (74-106) mg/dL Lactic Acid 2.6 H (0.4-2.0) mmol/L Calcium 8.1 L (8.5-10.1) mg/dL Total Bilirubin 0.4 (0.2-1.0) mg/dL AST 20 (15-37) U/L ALT 19 (12-78) U/L Alkaline Phosphatase 119 H (46-116) U/L Total Protein 6.6 (6.4-8.2) g/dL Albumin 2.9 L (3.4-5.0) g/dL Globulin 3.7 H (2.3-3.5) g/dL Albumin/Globulin Ratio 0.8 L (1.2-2.2) Lipase 24 L (73-393) U/L TSH, Ultra Sensitive (0.358-3.740) uIU/mL 09/01/19 Range/Units 08:27 WBC (4.5-11.0) K/uL RBC (3.30-5.50) M/uL Hgb (12.0-15.0) g/dL Hct (36.0-48.0) % MCV (80-98) fL MCH (27-31) pg MCHC (32-36) % Plt Count (150-400) K/uL Neut % (Auto) (36-66) % Lymph % (Auto) (24-44) % [place] % (Auto) (2-6) % Eos % (Auto) (2-4) % Baso % (Auto) (0-1) % Sodium (140-148) mmol/L Potassium (3.6-5.2) mmol/L Chloride (100-108) mmol/L Carbon Dioxide (21-32) mmol/L Anion Gap (5.0-14.0) mmol/L BUN (7-18) mg/dL Creatinine (0.6-1.0) mg/dL Est Cr Clr Drug Dosing mL/min Estimated GFR (MDRD) (>60) Glucose (74-106) mg/dL Lactic Acid (0.4-2.0) mmol/L Calcium (8.5-10.1) mg/dL Total Bilirubin (0.2-1.0) mg/dL AST (15-37) U/L ALT (12-78) U/L Alkaline Phosphatase (46-116) U/L Total Protein (6.4-8.2) g/dL Albumin (3.4-5.0) g/dL Globulin (2.3-3.5) g/dL Albumin/Globulin Ratio (1.2-2.2) Lipase (73-393) U/L TSH, Ultra Sensitive 2.189 (0.358-3.740) uIU/mL Result Diagrams: 09/01/19 08:27 09/01/19 08:27 Sepsis Event Note - Evaluation Sepsis Screening Result: No Definite Risk - Focused Exam Vital Signs: Vital Signs Temp Pulse Resp BP Pulse Ox 09/01/19 07:55 94.4 F L 117 H 18 116/77 94 L 09/01/19 07:50 94.4 F L 117 H 18 116/77 94 L Date Exam was Performed: 09/01/19 Time Exam was Performed: 11:22 *Q Meaningful Use (ADM) - VTE *Q VTE Pharmacological Contraindications *Q: Patient Scheduled Surgery - VTE Risk Assess *Q Each Risk Factor Represents 1 Point: None Total Score 1 Point Risk Factors: 0 Each Risk Factor Represents 2 Points: Age 60 - 74 Years, Major surgery greater than 45 minutes Total Score 2 Point Risk Factors: 4 Each Risk Factor Represents 3 Points: None Total Score 3 Point Risk Factors: 0 Each Risk Factor Represents 5 Points: None Total Score 5 Point Risk Factors: 0 Venous Thromboembolism Risk Factor Score *Q: 4 Problem List Initiated/Reviewed/Updated: Yes Orders Last 24hrs: Active Orders 24 hr Category Date Time Status Patient Status Manage Transfer [TRANSFER] Routine ADT 09/01/19 11:10 Active NG [Gastrointestinal Tube Mgmt] [RC] ASDIRECTED Care 09/01/19 10:56 Active Peripheral IV Care [RC] . DIRECTED Care 09/01/19 08:16 Active Abdomen 1V Upright [CR] Urgent Exams 09/01/19 08:15 Taken UA W/MICROSCOPIC [URIN] Urgent Lab 09/01/19 08:15 Ordered Iopamidol [Isovue-300 (61%)] Med 09/01/19 09:20 Active 65 ml IV . DIRECTED PRN Lactated Ringers [Ringers, Lactated] 1,000 ml Med 09/01/19 08:15 Active IV ASDIRECTED Sodium Chloride 0.9% [Normal Saline] 74 ml Med 09/01/19 09:30 Active IV ASDIRECTED Sodium Chloride 0.9% [Saline Flush] Med 09/01/19 08:15 Active 10 ml FLUSH ASDIRECTED PRN Sodium Chloride 0.9% [Saline Flush] Med 09/01/19 09:30 Active 10 ml FLUSH ONETIME ceFAZolin [Ancef] 2 gm Med 09/01/19 11:20 Ordered Premix Bag 1 bag IV ONETIME metroNIDAZOLE/Normal Saline [Flagyl 500 MG in NS 100 ML Med 09/01/19 11:18 Ordered ] 500 mg Premix Bag 1 bag IV ONETIME Nasogastric Orogastric Tube Insertion [OM.PC] Routine Oth 09/01/19 10:16 Ordered Peripheral IV Insertion Adult [OM.PC] Urgent Oth 09/01/19 08:15 Ordered Resuscitation Status Routine Resus Stat 09/01/19 11:13 Ordered Medication Orders Lactated Ringer's (Ringers, Lactated) 1,000 mls @ 999 mls/hr IV ASDIRECTED [facility] Last Admin: 09/01/19 09:03 Dose: 999 mls/hr Sodium Chloride (Normal Saline) 74 mls @ 3 mls/sec IV ASDIRECTED [facility] Last Admin: 09/01/19 09:29 Dose: 3 mls/sec Metronidazole 500 mg/ Premix 100 mls @ 100 mls/hr IV ONETIME ONE Stop: 09/01/19 12:17 Cefazolin Sodium/Dextrose 2 gm (/ Premix) 50 mls @ 100 mls/hr IV ONETIME ONE Stop: 09/01/19 11:49 Iopamidol (Isovue-300 (61%)) 65 ml IV . DIRECTED PRN PRN Reason: RADIOLOGY EXAM Stop: 09/02/19 09:21 Last Admin: 09/01/19 09:29 Dose: 65 ml Sodium Chloride (Saline Flush) 10 ml FLUSH ASDIRECTED PRN PRN Reason: Keep Vein Open Last Admin: 09/01/19 09:03 Dose: 10 ml Sodium Chloride (Saline Flush) 10 ml FLUSH ONETIME DEBI Last Admin: 09/01/19 09:29 Dose: 10 ml Assessment/Plan Comment:: ASSESSMENT AND PLAN SMALL BOWEL OBSTRUCTION-evidence of high-grade ileal bowel obstruction noted on CT scan -Surgical consult; Dr. Bee -N.p.o. -NG tube to low intermittent suction -IV fluids for hydration -Pain and nausea medication as needed -Cefazolin and Flagyl on-call to the OR [employer] -Continue outpatient medical therapy MAINTENANCE ISSUES -DVT prophylaxis; SCUDs, hold on anticoagulation pending surgery -GI prophylaxis; not indicated -Huang catheter; not indicated -Nutrition; n.p.o. -Nicotine dependence; 14 mg nicotine patch CODE STATUS-FULL CODE ADMISSION STATUS-patient will be admitted to inpatient status, expect at least a 2 night hospital stay for evaluation and management of problems as outlined above. At the time of this admission I do not reasonably expected evaluation and management of this problem will require more than a 96 hour hospital stay. DISPOSITION-anticipate discharge to home after the hospital stay. PRIMARY CARE PROVIDER- - Mortality Measure Prognosis:: Good
[2019-09-01] MEDS ORDERED: Bupivacaine 0.5%/EPINEPHrine 1:200,000 50 ML MDV ONE (11:37)
[2019-09-01] MEDS ORDERED: fentaNYL 250 MCG/5 ML SDV ONE (11:46)
[2019-09-01] MEDS ORDERED: Glycopyrrolate 0.2 MG/ML 5 ML MDV ONE (11:47)
[2019-09-01] MEDS ORDERED: Rocuronium 50 MG/5 ML Vial ONE (11:47)
[2019-09-01] MEDS ORDERED: Ondansetron 4 MG/2 ML SDV ONE (11:47)
[2019-09-01] MEDS ORDERED: Propofol 200 MG/20 ML SDV ONE (11:47)
[2019-09-01] MEDS ORDERED: Succinylcholine 200 MG/10 ML MDV ONE (11:47)
[2019-09-01] MEDS ORDERED: Neostigmine Methylsulfate 1 MG/ML 5 ML Syringe ONE (11:47)
[2019-09-01] MEDS ORDERED: Dexamethasone 4 MG/ML SDV ONE (11:47)
[2019-09-01] MEDS ORDERED: hydrOXYzine HCL 100 MG/2 ML SDV IM PRN ×2 (12:26→19:48)
[2019-09-01] MEDS ORDERED: Benzocaine/Cetylpyridinium/Menthol Lozenge MUCMEM PRN (12:26)
[2019-09-01] MEDS ORDERED: diphenhydrAMINE 50 MG/ML SDV IVPUSH PRN (12:26)
[2019-09-01] MEDS ORDERED: Docusate Sodium 100 MG Cap PO PRN (12:26)
[2019-09-01] MEDS ORDERED: fentaNYL 100 MCG/2 ML SDV IVPUSH PRN (12:28)
[2019-09-01] MEDS ORDERED: ceFAZolin 1 GM in Sodium Chloride 0.9% 50 ML IV SCH (14:00)
[2019-09-01] MEDS ORDERED: LORazepam 2 MG/ML SDV IV PRN (14:15)
[2019-09-01] MEDS ORDERED: Albuterol 0.083% 2.5 MG/3 ML Neb Soln NEB PRN (14:15)
[2019-09-01] MEDS ORDERED: Ondansetron 4 MG/2 ML SDV IV PRN (14:15)
[2019-09-01] MEDS: HYDROmorphone 0.5 MG/0.5 ML Syringe IVPUSH PRN ×2 (14:53→17:41)
[2019-09-01] MEDS: Morphine 2 MG/ML Syringe IVPUSH PRN (20:02)
[2019-09-01] MEDS ORDERED: Sodium Chloride 0.9% 1,000 ML IV ONE (21:47)
[2019-09-01] MEDS: Piperacillin/Tazobactam 3.375 GM in Sodium Chloride 0.9% 50 ML IV SCH (22:21)
[2019-09-01] MEDS ORDERED: Sodium Chloride 0.9% 1,000 ML IV SCH (23:00)
[2019-09-02] MEDS: Piperacillin/Tazobactam 3.375 GM in Sodium Chloride 0.9% 50 ML IV SCH (03:04)
[2019-09-02] MEDS: Morphine 2 MG/ML Syringe IVPUSH PRN ×5 (03:05→21:10)
[2019-09-02] MEDS ORDERED: Sodium Chloride 0.9% 250 ML IV ONE (04:15)
[2019-09-02] MEDS: Sodium Chloride 0.9% 1,000 ML IV SCH ×3 (05:16→20:27)
[2019-09-02] MEDS: Piperacillin/Tazobactam/Dext 3.375 GM in Premix Bag 1 BAG IV SCH ×3 (09:12→21:11)
--- NOTE | 2019-09-02 10:27 | PN ---
DATE OF SERVICE: 09/02/2019 SUBJECTIVE: The patient is doing well. The abdominal pain preoperatively is gone. No nausea, vomiting, shortness of breath, or chest pain. OBJECTIVE: VITAL SIGNS: Temperature 98.2, blood pressure 107/63, respirations 16, pulse 107. CARDIOVASCULAR: Regular rhythm and rate. RESPIRATORY: Lungs are clear to auscultation bilaterally. ABDOMEN: Incision is healing well. LABORATORY DATA: Lab results show a normal creatinine, elevated white blood cell count. ASSESSMENT: Status post small bowel resection. PLAN: We will keep the NG tube and Huang catheter today. We will keep the low volume fluid boluses continuing to reach target goal of 50 mL in 2 hours. We will continue IV antibiotics due to gross spillage of stool in the abdomen intraoperatively. William Bee MD /[id number]
[2019-09-02] MEDS: Furosemide 20 MG/2 ML VIAL IVPUSH SCH (18:15)
[2019-09-03] MEDS: Morphine 2 MG/ML Syringe IVPUSH PRN ×4 (00:24→13:51)
[2019-09-03] MEDS: Piperacillin/Tazobactam/Dext 3.375 GM in Premix Bag 1 BAG IV SCH ×4 (03:57→21:17)
[2019-09-03] MEDS: Sodium Chloride 0.9% 1,000 ML IV SCH ×2 (05:39→14:35)
[2019-09-03] MEDS: Furosemide 20 MG/2 ML VIAL IVPUSH SCH ×2 (05:52→13:33)
--- NOTE | 2019-09-03 08:37 | OR ---
DATE OF PROCEDURE: 09/01/2019 SURGEON: William Bee MD PROCEDURES PERFORMED: 1. Exploratory laparotomy. 2. Small bowel resection, distal ileum. COMPLICATIONS: None. 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 ANESTHETIC: General. RISKS: Risks, benefits, alternatives, and limitations including, but not limited to infection, bleeding, requirement for reoperation, injury to bowel or bladder, abscess formation, sepsis, requirement for further surgeries, and other risks not listed here were explained to the patient, and she wished to proceed. PREOPERATIVE DIAGNOSIS: Small-bowel obstruction. POSTOPERATIVE DIAGNOSIS: Small-bowel obstruction. DESCRIPTION OF PROCEDURE: The patient was placed in the supine position. A midline abdominal incision was made. This was performed with a 15 blade and then carried down with electrocautery. Shayla clamps were used to elevate the fascia. The peritoneum was entered sharply. No evidence of enterotomy or injury was noted. The entire incision length was approximately 8 to 10 cm in size. The bowel was identified and ran from the ligament of Treitz. There was no bowel obstruction with respect to twist, adhesion, or mechanical failure. Rather, in the distal ileum, a portion of the small bowel had strictured due to scarring. This was essentially a decrease in the diameter of the small bowel itself. Stool was not able to be passed through this. This was then left to see if this was a spasm, the rest of the abdomen was inspected, and the bowel was ran again. No other abnormalities noted. Returning to that, although a small amount of stool could go through, this was not a functional, viable bowel with respect to the ability to move stool through this. Therefore, this would be resected. The small bowel resection was performed in a [id number] functional end-to-end anastomosis. Careful attention was made to the vascular arcade. This was transected, and with álvarez load staplers, [id number] anastomosis was double stapled. This was performed outside the body. All leakage from this procedure would be extracorporeal. After two 60s were made to create a double-layered anastomosis, Allis clamps were used to close the defect by elevating and then transecting with a álvarez load stapler. The mesenteric defect was then closed with Vicryl suture. An anti-unzipping stitch was placed proximal/distal to the anastomosis. The abdomen was thoroughly irrigated with 1 L of irrigation. Gloves, etc., were exchanged along with different equipment and towels, laps, etc. Tisseel was applied. This was placed back in the abdomen. The fascia was then closed with #1 Vicryl and 3-0 Vicryl in an interrupted running fashion after thoroughly irrigating, and desiree were applied. The patient tolerated the procedure well. William Bee MD /[id number]
--- NOTE | 2019-09-03 08:40 | OR ---
DATE OF PROCEDURE: 09/01/2019 SURGEON: William Bee MD PROCEDURE: Transversus abdominis plane block bilaterally. COMPLICATION: None. 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 RISKS: Risks, benefits, alternatives, and limitations including, but not limited to infection, bleeding, and injury to abdominal structures were explained to the patient, who wished to proceed. PROCEDURE IN DETAIL: The patient was placed in supine position. The left transversus plane was identified. Approximately 80% of the solution was injected under direct visualization. The right side was then performed in the same manner, same fashion, same technique, in the same sequence, using the same equipment. The patient tolerated the procedure well. William Bee MD /[id number]
--- NOTE | 2019-09-03 10:07 | CR ---
Abdomen 1V Upright CLINICAL HISTORY: Pain FINDINGS: No free air is identified. There is diffuse small bowel distention with scattered air-fluid levels. This is similar to the July study IMPRESSION: Small bowel distention most consistent with distal small bowel obstruction. This was also seen in July
--- NOTE | 2019-09-03 10:10 | PN ---
DATE OF SERVICE: 09/03/2019 SUBJECTIVE: The patient continues to improve. Pain is well controlled. No nausea, vomiting, shortness of breath, or chest pain. She is passing gas and had a small bowel movement. Urine output is responding well to Lasix. OBJECTIVE: VITAL SIGNS: Stable. She is afebrile. CARDIOVASCULAR: Regular rhythm and rate. RESPIRATORY: Lungs clear to auscultation bilaterally. SKIN: Incision healing well. No signs of cellulitis or infection. ASSESSMENT AND PLAN: 1. GI: As the patient is having GI activity, we will remove her NG tube today. 2. Fluids, Electrolyte, Nutrition: We will start her on a clear liquid diet. Saline lock her once she is tolerating her clear diet and give her another round of Lasix today. 3. Infectious Disease: The patient does have an elevated white blood cell count, she is afebrile, and has remained tachycardic through the entire hospitalization. We will continue the antibiotics at this time. Recheck the white blood cell count in the morning even though the patient is asymptomatic with this. We will also check a urinalysis today. William Bee MD /[id number]
--- NOTE | 2019-09-03 10:32 | CR ---
CHEST: 2 view CLINICAL HISTORY:Positive sepsis COMPARISON:None FINDINGS: There is some free intraperitoneal air under the hemidiaphragms. The this is likely from recent surgery. There are small bibasal effusions. Heart size and pulmonary vascularity are normal. Lungs are generally hyperaerated. NG tube in place IMPRESSION: Hyperaeration. No infiltrates are seen Small bibasal effusions Free intraperitoneal air likely related to recent surgery NG tube in place.
[2019-09-03] MEDS: Potassium Chloride 20 MEQ, Lidocaine 1% 2 ML in Sodium Chloride 0.9% 100 ML IV SCH ×3 (13:32→21:17)
[2019-09-03] MEDS: Acetaminophen/HYDROcodone 325-5 MG Tab PO PRN ×2 (17:18→21:15)
[2019-09-04] MEDS: Acetaminophen/HYDROcodone 325-5 MG Tab PO PRN ×2 (04:04→10:29)
[2019-09-04] MEDS: Piperacillin/Tazobactam/Dext 3.375 GM in Premix Bag 1 BAG IV SCH ×4 (04:04→22:15)
[2019-09-04] MEDS: ZOLMITRIPTAN 5 MG PO PRN ×2 (04:05→09:09)
--- NOTE | 2019-09-04 08:38 | PN ---
DATE OF SERVICE: 09/04/2019 SUBJECTIVE: The patient is doing well today. She is passing large amount of gas. No nausea or shortness of breath, or chest pain. OBJECTIVE: VITAL SIGNS: Stable. Afebrile. CARDIOVASCULAR: Regular rhythm and rate. RESPIRATORY: Lungs are clear to auscultation bilaterally. ABDOMEN: Inferior aspect of the wound shows some drainage. ASSESSMENT: Status post small bowel resection. PLAN: 1. Infectious Disease. White blood cell count is elevated today. I did open the lower aspect of her incision and purulent fluid was noted concerning for infection. This was cultured. I will add vancomycin today and recheck white blood cell count in a.m. This is most likely the etiology of the infection; however, if she is refractory to the new antibiotic regiment and drainage of this abscess, we will consider CT scan in a.m. 2. Diet: She is to continue to advance her diet once we have seen further GI activity. 3. Activity is encouraged. The patient is ambulating very frequently. William Bee MD /[id number]
[2019-09-04] MEDS ORDERED: Vancomycin 1 GM SDV IV SCH (08:45)
[2019-09-04] MEDS: Furosemide 20 MG/2 ML VIAL IVPUSH SCH (09:09)
[2019-09-04] MEDS: Bisacodyl 5 MG Tab PO PRN (09:10)
[2019-09-04] MEDS: Enoxaparin 40 MG/0.4 ML Syringe SUBCUT SCH (09:52)
[2019-09-04] MEDS: Morphine 2 MG/ML Syringe IVPUSH PRN (22:06)
[2019-09-05] MEDS: Acetaminophen/HYDROcodone 325-5 MG Tab PO PRN ×2 (02:45→21:20)
[2019-09-05] MEDS: Piperacillin/Tazobactam/Dext 3.375 GM in Premix Bag 1 BAG IV SCH ×4 (04:36→21:14)
[2019-09-05] MEDS: ZOLMITRIPTAN 5 MG PO PRN (07:36)
--- NOTE | 2019-09-05 07:56 | PN ---
DATE OF SERVICE: 09/05/2019 SUBJECTIVE: The patient continues to improve today. She has no specific concerns today and is doing quite well. Still passing a large amount of gas. No bowel movement yet. OBJECTIVE: VITAL SIGNS: Stable. She is afebrile. CARDIOVASCULAR: Regular rhythm and rate. RESPIRATORY: Lungs clear to auscultation bilaterally. Incision improved overnight. ASSESSMENT: Status post small bowel resection. PLAN: 1. Infectious Disease will continue the vancomycin as her white blood cell count has now decreased. She remains afebrile. 2. Fluid, electrolyte, nutrition. Stay on a clear liquid diet at this time. 3. Activity. Encouraged to remain on Lovenox. 4. Pain control. Pain is well controlled. No specific concerns. Continue same plan. William Bee MD /[id number]
[2019-09-05] MEDS: Enoxaparin 40 MG/0.4 ML Syringe SUBCUT SCH (08:24)
[2019-09-05] MEDS: Furosemide 20 MG/2 ML VIAL IVPUSH SCH (08:24)
[2019-09-05] MEDS: Potassium Chloride 20 MEQ, Lidocaine 1% 2 ML in Sodium Chloride 0.9% 100 ML IV SCH ×3 (09:33→18:53)
[2019-09-06] MEDS: Bisacodyl 5 MG Tab PO PRN (02:29)
[2019-09-06] MEDS: Piperacillin/Tazobactam/Dext 3.375 GM in Premix Bag 1 BAG IV SCH ×4 (03:48→21:46)
[2019-09-06] MEDS: Furosemide 20 MG/2 ML VIAL IVPUSH SCH (08:10)
[2019-09-06] MEDS: Enoxaparin 40 MG/0.4 ML Syringe SUBCUT SCH (08:10)
[2019-09-06] MEDS ORDERED: Vancomycin 1.2 GM in Sodium Chloride 0.9% 250 ML IV SCH (11:00)
[2019-09-06] MEDS: Acetaminophen/HYDROcodone 325-5 MG Tab PO PRN ×2 (12:43→21:45)
[2019-09-07] MEDS: Piperacillin/Tazobactam/Dext 3.375 GM in Premix Bag 1 BAG IV SCH ×3 (03:40→15:12)
--- NOTE | 2019-09-07 08:22 | PN ---
DATE OF SERVICE: 09/07/2019 SUBJECTIVE: The patient continues to significantly improve. She almost has pain well controlled. No nausea, vomiting, shortness of breath, chest pain. She does not feel febrile. She is having multiple bowel movements without difficulty. OBJECTIVE: VITAL SIGNS: Stable. CARDIOVASCULAR: Regular rhythm and rate. RESPIRATORY: Lungs are clear to auscultation bilaterally. ABDOMEN: Bowel sounds positive. Incision healing well. ASSESSMENT: Status post small bowel resection. PLAN: The patient will be discharged today. Please see discharge instructions for further details. William Bee MD /[id number]
--- NOTE | 2019-09-07 08:46 | DISCH ---
DISCHARGE DIAGNOSIS: Status post small bowel resection. SUMMARY OF HOSPITAL COURSE: A pleasant 69-year-old female, who had a stricture of her bowel. She underwent an open small bowel resection. The patient did well. She did have an elevated white blood cell count. This was attributed to possibly a wound infection, which was opened and cultured showing E coli and antibiotics were addressed via vancomycin. The patient's white blood cell count responded well and dropped significantly. She will be discharged today on Bactrim Double Strength, which is also matched for the infection. FOLLOWUP: With Surgery in 7 to 14 days. ACTIVITY: No lifting greater than 30 pounds x30 days.
[2019-09-07] MEDS: Furosemide 20 MG/2 ML VIAL IVPUSH SCH (09:46)
[2019-09-07] MEDS: Enoxaparin 40 MG/0.4 ML Syringe SUBCUT SCH (09:46)
[2019-09-07] MEDS: Acetaminophen/HYDROcodone 325-5 MG Tab PO PRN ×2 (09:47→15:17)
== END 2019-09-07 16:48 | disposition home or self-care (01) | DRG 330 ==
LOC: JP.ED 07:33 → JP.SDS 11:09 → JP.MS 14:15
PROVIDERS: ADMIT Surgery; ATTEND Hospitalist
PROC: 0DBB0ZZ Excision of Ileum, Open Approach (ICD-10-PCS; principal; 2019-09-01)
DX: K56.609 Unspecified intestinal obstruction, unspecified as to partial versus complete obstruction (principal); Z92.3 Personal history of irradiation; Z86.39 Personal history of other endocrine, nutritional and metabolic disease; T81.49XA Infection following a procedure, other surgical site, initial encounter; Z79.899 Other long term (current) drug therapy; F17.200 Nicotine dependence, unspecified, uncomplicated; Z90.49 Acquired absence of other specified parts of digestive tract; B96.20 Unspecified Escherichia coli [E. coli] as the cause of diseases classified elsewhere
CPT/HCPCS: 36415; 44120; 74018 ×2; 74177; 80053; 81001; 83605; 83690; 84443; 85025; 88307; 96361; 96374; 96375; 99284; 99285; J0171; J0330; J0690; J1100 ×2; J1885; J2060; J2405 ×3; J2704; J2710; J2795; J3010 ×2; J3490 ×3; J7050 ×2; J7120; Q9967; 71046; 71046-26; 80048; 80202; 85027; 87070; 87077; 87186; 87205; A9270-GY; J1170; J1650; J1940; J2001; J2270; J2543; J3370; J3410; J3480; J7030

== ENCOUNTER 2019-09-12 16:12 | Inpatient (IN) | payer MEDICARE ==
[2019-09-12] MEDS ORDERED: Sodium Chloride 0.9% 10 ML Syringe FLUSH PRN (16:46)
[2019-09-12] MEDS ORDERED: fentaNYL 100 MCG/2 ML SDV IVPUSH ONE (16:48)
[2019-09-12] MEDS ORDERED: Ondansetron 4 MG/2 ML SDV IVPUSH ONE (16:49)
--- NOTE | 2019-09-12 16:52 | EDM.PDOC ---
<OfficerKayden - Last Filed: 09/12/19 16:47> ED HPI GENERAL MEDICAL PROBLEM - General Chief Complaint: General Stated Complaint: SURGERY COMPLICATIONS/NOT FEELING WELL Time Seen by Provider: 09/12/19 16:41 Source of Information: Reports: Patient, Old Records, RN Notes Reviewed History Limitations: Reports: No Limitations - History of Present Illness INITIAL COMMENTS - FREE TEXT/NARRATIVE: 69-year-old female presents emergency department a complaint of abdominal pain she is postop day 9 small bowel obstruction with resection she states her surgical wound has been healing fine however she just is not feeling much better after her surgery remains weak she has developed some diarrhea she is finding it difficult to care for herself at home. Denies any fevers she continues to have nausea and vomiting with flareups of pain no shortness of breath or chest pain - Related Data Allergies Allergy/AdvReac Type Severity Reaction Status Date / Time No Known Allergies Allergy Verified 09/12/19 16:26 Home Meds: Home Meds Bismuth Subsalicylate [Pepto-Bismol] 15 ml PO TID PRN 08/11/19 [History] Loperamide HCl [Imodium A-D] 2 mg PO BID PRN 08/11/19 [History] ZOLMitriptan [Zolmitriptan] 5 mg PO ASDIRECTED PRN 08/12/19 [History] Hydrocodone/Acetaminophen [Hydrocodon-Acetaminophen 5-325] 1 tab PO Q6H PRN [History] Sulfamethoxazole/Trimethoprim [Bactrim Ds Tablet] 0 tab PO ASDIRECTED 09/12/19 [ History] Past Medical History HEENT History: Reports: Impaired Vision Gastrointestinal History: Reports: Chronic Diarrhea 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: Neurological History: Reports: Migraines Endocrine/Metabolic History: Reports: Other (See Below) Other Endocrine/Metabolic History: hx Graves disease - Past Surgical History Head Surgeries/Procedures: Reports: None HEENT Surgical History: Reports: Tonsillectomy GI Surgical History: Reports: Appendectomy, Hernia Repair/Other, Lysis of Adhesions, Small Bowel Endocrine Surgical History: Reports: Other (See Below) Other Endocrine Surgeries/Procedures: thyroid radiation Neurological Surgical History: Reports: None Dermatological Surgical History: Reports: None Social & Family History - Tobacco Use Smoking Status *Q: Former Smoker Used Tobacco, but Quit: Yes Month/Year Tobacco Last Used: 08/2019 Second Hand Smoke Exposure: No - Caffeine Use Caffeine Use: Reports: None - Recreational Drug Use Recreational Drug Use: No ED ROS GENERAL - Review of Systems Review Of Systems: See Below Constitutional: Reports: Weakness, Fatigue. Denies: Fever, Chills HEENT: Reports: No Symptoms Respiratory: Reports: No Symptoms Cardiovascular: Reports: No Symptoms GI/Abdominal: Reports: Abdominal Pain, Diarrhea, Flatus, Nausea, Vomiting : Reports: No Symptoms Musculoskeletal: Reports: No Symptoms Skin: Reports: Wound Neurological: Reports: No Symptoms ED EXAM, GENERAL - Physical Exam Exam: See Below Exam Limited By: No Limitations General Appearance: Alert, WD/WN, No Apparent Distress Neck: Normal Inspection, Supple, Non-Tender, Full Range of Motion Respiratory/Chest: No Respiratory Distress, Lungs Clear, Normal Breath Sounds, No Accessory Muscle Use, Chest Non-Tender Cardiovascular: Normal Peripheral Pulses, Regular Rate, Rhythm, No Murmur GI/Abdominal: Soft, No Distention, Tender (Tender around surgical site), Other ( Surgical wound clean dry and intact the inferior aspect of the wound is open however I do not appreciate any discharge with palpation) Extremities: Normal Inspection, No Pedal Edema Course - Vital Signs Last Recorded V/S: Last Vital Signs Temp 98.5 F 09/12/19 16:25 Pulse 117 H 09/12/19 16:25 Resp 13 09/12/19 16:25 BP 127/77 09/12/19 16:25 Pulse Ox 94 L 09/12/19 16:25 - Orders/Labs/Meds Orders: Active Orders 24 hr Category Date Time Status Patient Status [ADT] Routine ADT 09/12/19 19:59 Active Ambulate [RC] ASDIRECTED Care 09/12/19 19:59 Active Dorsiflex/Plantar flex x 10 [RC] QSHIFT Care 09/12/19 19:59 Active Head of Bed Elevation [RC] CONTINUOUS Care 09/12/19 19:59 Active Oxygen Therapy [RC] PRN Care 09/12/19 19:59 Active Peripheral IV Care [RC] . DIRECTED Care 09/12/19 16:46 Active Pneumonia Education [RC] UPON Care 09/12/19 19:59 Active RT Incentive Spirometry [RC] Q1HWA Care 09/12/19 19:59 Active Turn, Cough, Deep Breathe [RC] Q1HWA Care 09/12/19 19:59 Active Up ad Mallory [RC] ASDIRECTED Care 09/12/19 19:59 Active Up to Chair [RC] TIDMEALS Care 09/12/19 19:59 Active Vital Signs [RC] PER UNIT ROUTINE Care 09/12/19 19:59 Active Respiratory Care Assess and Treatment [CONS] Routine Cons 09/12/19 19:59 Active Nothing Per Oral Diet [DIET] Diet 09/12/19 Breakfast Active Abdomen 1V Upright [CR] Urgent Exams 09/12/19 16:46 Taken BASIC METABOLIC PANEL,BMP [CHEM] AM Lab 09/13/19 05:11 Ordered CBC WITH AUTO DIFF [HEME] AM Lab 09/13/19 05:11 Ordered Benzocaine/Cetylpyrd/Menthol [Cepacol Sore Throat] Med 09/12/19 19:59 Active 1 lozenge MUCMEM Q1H PRN Enoxaparin [Lovenox] Med 09/13/19 09:00 Active 40 mg SUBCUT DAILY Lactated Ringers [Ringers, Lactated] 1,000 ml Med 09/12/19 17:00 Active IV ASDIRECTED Sodium Chloride 0.9% [Normal Saline] 1,000 ml Med 09/12/19 20:00 Active IV ASDIRECTED Sodium Chloride 0.9% [Saline Flush] Med 09/12/19 16:46 Active 10 ml FLUSH ASDIRECTED PRN Zolpidem [Ambien] Med 09/12/19 19:59 Active 5 mg PO BEDTIME PRN diphenhydrAMINE [Benadryl] Med 09/12/19 19:59 Active 50 mg IVPUSH Q4H PRN hydrOXYzine HCL [Vistaril] Med 09/12/19 19:59 Active 100 mg IM Q4H PRN Oral Care [OM.PC] BID Oth 09/12/19 20:00 Ordered Oral Care [OM.PC] BID Oth 09/13/19 20:00 Ordered Peripheral IV Insertion Adult [OM.PC] Urgent Oth 09/12/19 16:46 Ordered Resuscitation Status Routine Resus Stat 09/12/19 19:59 Ordered Medication Orders Benzocaine/Menthol (Cepacol Sore Throat) 1 lozenge MUCMEM Q1H PRN PRN Reason: Sore Throat Diphenhydramine HCl (Benadryl) 50 mg IVPUSH Q4H PRN PRN Reason: Itching Enoxaparin Sodium (Lovenox) 40 mg SUBCUT DAILY DEBI Hydroxyzine HCl (Vistaril) 100 mg IM Q4H PRN PRN Reason: Nausea Lactated Ringer's (Ringers, Lactated) 1,000 mls @ 999 mls/hr IV ASDIRECTED DEBI Last Admin: 09/12/19 17:04 Dose: 999 mls/hr Sodium Chloride (Normal Saline) 1,000 mls @ 125 mls/hr IV ASDIRECTED DEBI Sodium Chloride (Saline Flush) 10 ml FLUSH ASDIRECTED PRN PRN Reason: Keep Vein Open Last Admin: 09/12/19 17:03 Dose: 10 ml Zolpidem Tartrate (Ambien) 5 mg PO BEDTIME PRN PRN Reason: Insomnia Labs: Laboratory Tests 09/12/19 09/12/19 09/12/19 Range/Units 16:55 16:55 16:55 WBC 11.2 H (4.5-11.0) K/uL RBC 4.18 (3.30-5.50) M/uL Hgb 12.9 (12.0-15.0) g/dL Hct 35.2 L (36.0-48.0) % MCV 84 (80-98) fL MCH 31 (27-31) pg MCHC 37 H (32-36) % Plt Count 560 H (150-400) K/uL Add Manual Diff Yes Neutrophils % (Manual) 55 (36-66) % Band Neutrophils % 16 H (5-11) % Lymphocytes % (Manual) 17 L (24-44) % Monocytes % (Manual) 10 H (2-6) % Blast Cells % 2 % Nucleated RBCs 1 Spherocytes Few H Target Cells Few Sodium 131 L (140-148) mmol/L Potassium 3.8 (3.6-5.2) mmol/L Chloride 90 L (100-108) mmol/L Carbon Dioxide 31 (21-32) mmol/L Anion Gap 13.8 (5.0-14.0) mmol/L BUN 33 H D (7-18) mg/dL Creatinine 0.8 (0.6-1.0) mg/dL Est Cr Clr Drug Dosing 59.25 mL/min Estimated GFR (MDRD) > 60 (>60) Glucose 79 (74-106) mg/dL Lactic Acid 2.5 H (0.4-2.0) mmol/L Calcium 8.4 L (8.5-10.1) mg/dL Total Bilirubin 0.6 (0.2-1.0) mg/dL AST 26 (15-37) U/L ALT 24 (12-78) U/L Alkaline Phosphatase 125 H (46-116) U/L Total Protein 5.9 L (6.4-8.2) g/dL Albumin 1.6 L (3.4-5.0) g/dL Globulin 4.3 H (2.3-3.5) g/dL Albumin/Globulin Ratio 0.4 L (1.2-2.2) Lipase 26 L (73-393) U/L Urine Color (YELLOW) Urine Appearance (CLEAR) Urine pH (5.0-8.0) Ur Specific [place] (1.008-1.030) Urine Protein (NEGATIVE) mg/dL Urine Glucose (UA) (NEGATIVE) mg/dL Urine Ketones (NEGATIVE) mg/dL Urine Occult Blood (NEGATIVE) Urine Nitrite (NEGATIVE) Urine Bilirubin (NEGATIVE) Urine Urobilinogen (0.2-1.0) EU/dL Ur Leukocyte Esterase (NEGATIVE) Urine RBC (0-5) Urine WBC (0-5) Ur Epithelial Cells Amorphous Sediment Urine Bacteria Urine Mucus Urine Other 09/12/19 Range/Units 18:10 WBC (4.5-11.0) K/uL RBC (3.30-5.50) M/uL Hgb (12.0-15.0) g/dL Hct (36.0-48.0) % MCV (80-98) fL MCH (27-31) pg MCHC (32-36) % Plt Count (150-400) K/uL Add Manual Diff Neutrophils % (Manual) (36-66) % Band Neutrophils % (5-11) % Lymphocytes % (Manual) (24-44) % Monocytes % (Manual) (2-6) % Blast Cells % % Nucleated RBCs Spherocytes Target Cells Sodium (140-148) mmol/L Potassium (3.6-5.2) mmol/L Chloride (100-108) mmol/L Carbon Dioxide (21-32) mmol/L Anion Gap (5.0-14.0) mmol/L BUN (7-18) mg/dL Creatinine (0.6-1.0) mg/dL Est Cr Clr Drug Dosing mL/min Estimated GFR (MDRD) (>60) Glucose (74-106) mg/dL Lactic Acid (0.4-2.0) mmol/L Calcium (8.5-10.1) mg/dL Total Bilirubin (0.2-1.0) mg/dL AST (15-37) U/L ALT (12-78) U/L Alkaline Phosphatase (46-116) U/L Total Protein (6.4-8.2) g/dL Albumin (3.4-5.0) g/dL Globulin (2.3-3.5) g/dL Albumin/Globulin Ratio (1.2-2.2) Lipase (73-393) U/L Urine Color Yellow (YELLOW) Urine Appearance Cloudy A (CLEAR) Urine pH 5.5 (5.0-8.0) Ur Specific [place] 1.025 (1.008-1.030) Urine Protein 30 H (NEGATIVE) mg/dL Urine Glucose (UA) Negative (NEGATIVE) mg/dL Urine Ketones 15 H (NEGATIVE) mg/dL Urine Occult Blood Negative (NEGATIVE) Urine Nitrite Negative (NEGATIVE) Urine Bilirubin Moderate H (NEGATIVE) Urine Urobilinogen 0.2 (0.2-1.0) EU/dL Ur Leukocyte Esterase Negative (NEGATIVE) Urine RBC 5-10 H (0-5) Urine WBC 5-10 H (0-5) Ur Epithelial Cells Moderate Amorphous Sediment Few Urine Bacteria Moderate Urine Mucus Few Urine Other Meds: Medications Generic Name Dose Route Start Last Admin Trade Name Freq PRN Reason Stop Dose Admin Benzocaine/Menthol 1 lozenge 09/12/19 19:59 Cepacol Sore Throat MUCMEM Q1H PRN Sore Throat Diphenhydramine HCl 50 mg 09/12/19 19:59 Benadryl IVPUSH Q4H PRN Itching Enoxaparin Sodium 40 mg 09/13/19 09:00 Lovenox SUBCUT DAILY DEBI Hydroxyzine HCl 100 mg 09/12/19 19:59 Vistaril IM Q4H PRN Nausea Lactated Ringer's 1,000 mls @ 999 mls/hr 09/12/19 17:00 09/12/19 17:04 Ringers, Lactated IV 999 mls/hr ASDIRECTED DEBI Administration Sodium Chloride 1,000 mls @ 125 mls/hr 09/12/19 20:00 Normal Saline IV ASDIRECTED DEBI Sodium Chloride 10 ml 09/12/19 16:46 09/12/19 17:03 Saline Flush FLUSH 10 ml ASDIRECTED PRN Administration Keep Vein Open Zolpidem Tartrate 5 mg 09/12/19 19:59 Ambien PO BEDTIME PRN Insomnia Discontinued Medications Generic Name Dose Route Start Last Admin Trade Name Dennise PRN Reason Stop Dose Admin Bupivacaine HCl/Epinephrine Bitart Confirm 09/12/19 19:43 Marcaine 0.5%/Epinephrine 1:200,000 Administered 09/12/19 19:44 Dose 50 ml .ROUTE .STK-MED ONE Dexamethasone Confirm 09/12/19 19:49 Dexamethasone Administered 09/12/19 19:50 Dose 4 mg .ROUTE .STK-MED ONE Dexamethasone Confirm 09/12/19 19:54 Dexamethasone Administered 09/12/19 19:55 Dose 8 mg .ROUTE .STK-MED ONE Epinephrine HCl Confirm 09/12/19 19:54 Adrenalin Administered 09/12/19 19:55 Dose 1 mg .ROUTE .STK-MED ONE Fentanyl 50 mcg 09/12/19 16:48 09/12/19 17:01 Sublimaze IVPUSH 09/12/19 16:49 50 mcg ONETIME ONE Administration Fentanyl Confirm 09/12/19 19:50 Sublimaze Administered 09/12/19 19:51 Dose 250 mcg .ROUTE .STK-MED ONE Glycopyrrolate Confirm 09/12/19 19:49 Robinul Administered 09/12/19 19:50 Dose 1 mg .ROUTE .STK-MED ONE Piperacillin Sod/Tazobactam 100 mls @ 100 mls/hr 09/12/19 19:14 09/12/19 19: 29 Sod 4.5 gm/ Sodium Chloride IV 09/12/19 20:13 100 mls/hr ONETIME ONE Administration Sodium Chloride Confirm 09/12/19 20:04 Normal Saline Administered 09/12/19 20:05 Dose 500 mls @ as directed .ROUTE .STK-MED ONE Neostigmine Methylsulfate Confirm 09/12/19 19:49 Neostigmine Administered 09/12/19 19:50 Dose 5 mg .ROUTE .STK-MED ONE Ondansetron HCl 4 mg 09/12/19 16:49 09/12/19 16:59 Zofran IVPUSH 09/12/19 16:50 4 mg ONETIME ONE Administration Ondansetron HCl Confirm 09/12/19 19:49 Zofran Administered 09/12/19 19:50 Dose 4 mg .ROUTE .STK-MED ONE Propofol Confirm 09/12/19 19:49 Diprivan 20 Ml Administered 09/12/19 19:50 Dose 200 mg .ROUTE .STK-MED ONE Rocuronium [place] Confirm 09/12/19 19:49 Zemuron Administered 09/12/19 19:50 Dose 50 mg .ROUTE .STK-MED ONE Ropivacaine Confirm 09/12/19 19:54 Naropin 0.5% Administered 09/12/19 19:55 Dose 60 ml .ROUTE .STK-MED ONE Succinylcholine Chloride Confirm 09/12/19 19:49 Quelicin Administered 09/12/19 19:50 Dose 200 mg .ROUTE .STK-MED ONE Departure - Departure Disposition: Admitted As Inpatient 68 Clinical Impression: Small bowel obstruction Abdominal pain Qualifiers: Abdominal location: generalized Qualified Code(s): R10.84 - Generalized abdominal pain - Discharge Information Sepsis Event Note - Evaluation Sepsis Screening Result: No Definite Risk - Focused Exam Vital Signs: Vital Signs Temp Pulse Resp BP Pulse Ox 09/12/19 16:25 98.5 F 117 H 13 127/77 94 L 09/12/19 16:23 98.5 F 117 H 13 127/77 94 L Date Exam was Performed: 09/12/19 Time Exam was Performed: 16:47 <Sage Candelaria - Last Filed: 09/12/19 20:19> Course - Re-Assessments/Exams Free Text/Narrative Re-Assessment/Exam: 09/12/19 18:16 Patient care took over from Officer pending results of work-up. Upright abdominal x-ray shows large air-fluid levels in intra-abdominal air worse than her presurgery x-ray 2 weeks ago. Lactic acid is mildly elevated at 2.5. This was discussed with Dr. Bee, who recommended a second CT scan of the abdomen which was ordered without contrast. 09/12/19 19:16 IMPRESSION: 1. Abnormally dilated loops of small bowel up to the region of the anastomotic site in the right lower quadrant probably related to a small-bowel obstruction at or near the anastomotic site. 2. Significant mixed density ascites new since the prior study likely a representation of a bowel leak at or near the anastomotic site. 3. Significant intraperitoneal air above that normally seen 10 days postoperatively. Some of this is free and some of it is loculated. The loculated air is primarily in the right lower quadrant near the anastomotic site and is concerning for a developing collection. 4. I discussed the above findings with Dr. Candelaria at 7:10 p.m. on September 12, 2019 Above findings were discussed with Dr. Bee, 4.5 mg of Zofran IV was given and he is coming in to see the patient for surgical exploration. Departure - Departure Time of Disposition: 20:08 Sepsis Event Note - Focused Exam Date Exam was Performed: 09/12/19 Time Exam was Performed: 20:19
[2019-09-12] MEDS ORDERED: Lactated Ringers 1,000 ML IV SCH (17:00)
[2019-09-12] MEDS ORDERED: Piperacillin/Tazobactam 4.5 GM in Sodium Chloride 0.9% 100 ML IV ONE (19:14)
--- NOTE | 2019-09-12 19:18 | CRLCT ---
INDICATION: Abdominal pain and abnormal x-ray. COMPARISON: September 01, 2019 TECHNIQUE: CT examination of the abdomen and pelvis was performed without intravenous contrast. Thin section axial images were obtained from the lung bases through the pubic symphysis. Oral contrast was not administered. Please note that all CT scans at this facility use dose modulation, iterative reconstruction, and/or weight-based dosing when appropriate to reduce radiation dose to as low as reasonably achievable. FINDINGS: LUNG BASES: Bibasilar atelectasis.The heart size is normal at the lung bases. Atherosclerotic vascular calcifications. LIVER/BILIARY SYSTEM:Hepatic steatosis without focal mass or biliary ductal dilatation. The liver is enlarged. The gallbladder appears normalthe gall bladder appears normal. ADRENALS: Normal non-contrast appearance KIDNEYS, URETERS and BLADDER:The kidneys appear normal given lack of intravenous contrast. No visible mass, calculus or hydronephrosis. The ureters and bladder as visualized appear normal. SPLEEN:Normal non-contrast appearance. PANCREAS: Normal non-contrast appearance. RETROPERITONEUM and MESENTERY: There is no mass, adenopathy or aortic aneurysm. There are atherosclerotic changes of the aorta GASTROINTESTINAL SYSTEM: There is persistent significant abnormal dilation of small bowel with air-fluid levels. This appears to be up to the right lower quadrant anastomotic site. The colon is not dilated. This is probably a recurrent small-bowel obstruction at or near the anastomotic site. There is significant ascites which was not present on the preoperative study. This is of mixed density and contains a significant amount of air some of which is free. Some of this is clearly loculated in bubbles especially in the right lower quadrant on axial image 95 through 105 suggesting a developing collection. The combined findings suggest a recurrent small bowel obstruction probably near the anastomotic site. The significant free-fluid, the significant free air and the air loculated in the right lower quadrant location suggests that there is a leak, perhaps anastomotic leak, and possible developing abscess especially in the right lower quadrant PELVIS: No visible mass. OSSEOUS STRUCTURES and ABDOMINAL WALL: There is an age-appropriate appearance of the osseous structures.Recent anterior abdominal wall midline incision OTHER: No free fluid or free air. IMPRESSION: 1. Abnormally dilated loops of small bowel up to the region of the anastomotic site in the right lower quadrant probably related to a small-bowel obstruction at or near the anastomotic site. 2. Significant mixed density ascites new since the prior study likely a representation of a bowel leak at or near the anastomotic site. 3. Significant intraperitoneal air above that normally seen 10 days postoperatively. Some of this is free and some of it is loculated. The loculated air is primarily in the right lower quadrant near the anastomotic site and is concerning for a developing collection. 4. I discussed the above findings with Dr. Candelaria at 7:10 p.m. on September 12, [address] Please note that all CT scans at this facility use dose modulation, iterative reconstruction, and/or weight-based dosing when appropriate to reduce radiation dose to as low as reasonably achievable. Dictated by Palmer Anaya MD @ Sep 12 2019 7:03PM Signed by Dr. Palmer Anaya @ Sep 12 2019 7:15PM
[2019-09-12] MEDS ORDERED: Bupivacaine 0.5%/EPINEPHrine 1:200,000 50 ML MDV ONE (19:43)
[2019-09-12] MEDS ORDERED: Ondansetron 4 MG/2 ML SDV ONE (19:49)
[2019-09-12] MEDS ORDERED: Succinylcholine 200 MG/10 ML MDV ONE (19:49)
[2019-09-12] MEDS ORDERED: Neostigmine Methylsulfate 1 MG/ML 5 ML Syringe ONE (19:49)
[2019-09-12] MEDS ORDERED: Dexamethasone 4 MG/ML SDV ONE ×2 (19:49→19:54)
[2019-09-12] MEDS ORDERED: Rocuronium 50 MG/5 ML Vial ONE (19:49)
[2019-09-12] MEDS ORDERED: Glycopyrrolate 0.2 MG/ML 5 ML MDV ONE (19:49)
[2019-09-12] MEDS ORDERED: Propofol 200 MG/20 ML SDV ONE (19:49)
[2019-09-12] MEDS ORDERED: fentaNYL 250 MCG/5 ML SDV ONE (19:50)
[2019-09-12] MEDS ORDERED: Ropivacaine 0.5% 5 MG/ML 30 ML SDV ONE ×2 (19:54)
[2019-09-12] MEDS ORDERED: EPINEPHrine 1 MG/ML SDV ONE (19:54)
[2019-09-12] MEDS ORDERED: diphenhydrAMINE 50 MG/ML SDV IVPUSH PRN (19:59)
[2019-09-12] MEDS ORDERED: hydrOXYzine HCL 100 MG/2 ML SDV IM PRN (19:59)
[2019-09-12] MEDS ORDERED: Zolpidem 5 MG Tab PO PRN (19:59)
[2019-09-12] MEDS ORDERED: Benzocaine/Cetylpyridinium/Menthol Lozenge MUCMEM PRN (19:59)
[2019-09-12] MEDS ORDERED: Sodium Chloride 0.9% 500 ML ONE (20:04)
[2019-09-12] MEDS ORDERED: Meropenem 500 MG SDV ONE (20:42)
[2019-09-12] MEDS ORDERED: Ketorolac 60 MG/2 ML SDV ONE (21:11)
--- NOTE | 2019-09-12 21:46 | OR ---
DATE OF PROCEDURE: SURGEON: William Bee MD PROCEDURE: Transversus abdominis plane block, bilaterally. COMPLICATIONS: None. PRESS OPERATOR INSTANT PRINT SHOP: None. RISKS: The risks, benefits, alternatives, and limitations including but not limited to infection, bleeding, and perforation of abdominal structures were explained, and the patient wished to proceed. PROCEDURE IN DETAIL: The patient was placed in the supine position. The left transversus abdominis plane was identified first. This was injected with 80% of the solution. The opposite side was then performed in the same manner, same fashion, same technique, and the same sequence using the same equipment. The patient tolerated the procedure well. William Bee MD /[id number]
[2019-09-12] MEDS ORDERED: HYDROmorphone 0.5 MG/0.5 ML Syringe ONE (21:55)
[2019-09-12] MEDS ORDERED: HYDROmorphone 0.5 MG/0.5 ML Syringe IVPUSH ONE ×2 (22:02→22:08)
--- NOTE | 2019-09-12 22:40 | OR ---
DATE OF PROCEDURE: SURGEON: William Bee MD PROCEDURES: 1. Drainage of abdominal abscess, right lower quadrant. 2. Small bowel resection. COMPLICATIONS: None. DUMPSTER OPERATOR: None. ANESTHETIC: General. INDICATIONS: This is a pleasant 69-year-old female who had a previous anastomosis. This was found intraoperatively to have a small possible leak requiring revision. RISKS: Risks, benefits, alternatives, and limitations including, but not limited to infection, bleeding, injury to abdominal structures such as bowel, bladder, ureter, sepsis, septic risk, and other risks not listed here including fistula were explained to the patient before we proceeded and they wished to proceed. PROCEDURE IN DETAIL: The patient was placed in a supine position. The previous incision was opened. This was then carried down into the abdomen. The patient was noted to have some fluid collections. There was no gross stool to suggest a fistula or an obvious anastomotic failure. However, there was a fluid definitely consistent with an abscess, which was thoroughly irrigated and removed. The previous anastomosis was removed using álvarez load staplers. An ileocolic anastomosis was then performed in [id number], functional end- to-end anastomosis by creating a defect in both antimesenteric sites firing 2 load staplers using Allis clamps to reapproximate the defect and closing the defect. A Vicryl stitch was also used to prevent dehiscence of the anastomosis and the mesenteric defect to be closed with 3-0 Vicryl. Prior to this, extensive irrigation was performed throughout the abdomen. Approximately 6 L of irrigation consisting of normal saline was used to irrigate the abdomen. This was in all 4 quadrants. The bowel was removed and inspected. No other abnormalities were noted. No additional abscess pockets were noted. Meropenem was also used during this irrigation process. The areas that were also inspected were around the spleen, pericolic gutters, liver, pelvis, and again these were all irrigated and inspected. After this irrigation, the anastomosis was performed as described above. Tisseel was also used. Three drains were placed intra-abdominally; 1 in the right upper quadrant; 1 in the right abdomen, lower; and 1 in the pelvis. The fascia was then closed with #1 Vicryl, irrigated again with meropenem-containing solution and a 7 flat drain was placed subcutaneously. Rutledge were applied. The patient tolerated the procedure well. William Bee MD /[id number]
[2019-09-12] MEDS ORDERED: Naloxone 0.4 MG/ML SDV IV PRN (22:47)
[2019-09-12] MEDS ORDERED: Morphine PF 150 MG/30 ML PCA Syringe IV PRN (22:47)
[2019-09-12] MEDS ORDERED: Naloxone 0.4 MG/ML SDV IVPUSH PRN (22:54)
[2019-09-12] MEDS: Sodium Chloride 0.9% 1,000 ML IV SCH (22:56)
[2019-09-12] MEDS: HYDROmorphone/Normal Saline 15 MG/30 ML PCA IV PRN (23:32)
[2019-09-13] MEDS ORDERED: Piperacillin/Tazobactam 4.5 GM in Sodium Chloride 0.9% 100 ML IV SCH (02:00)
[2019-09-13] MEDS ORDERED: Sodium Chloride 0.9% 250 ML IV ONE ×2 (02:30→05:31)
[2019-09-13] MEDS: Sodium Chloride 0.9% 1,000 ML IV SCH ×2 (06:46→12:55)
[2019-09-13] MEDS ORDERED: Piperacillin/Tazobactam/Dext 4.5 GM in Premix Bag 1 BAG IV SCH (08:00)
[2019-09-13] MEDS: Enoxaparin 40 MG/0.4 ML Syringe SUBCUT SCH (08:15)
--- NOTE | 2019-09-13 09:41 | PN ---
DATE OF SERVICE: 09/13/2019 SUBJECTIVE: The patient is doing well today as she reports having bowel movement. No nausea, vomiting, shortness of breath, or chest pain. OBJECTIVE: VITAL SIGNS: Stable. She is afebrile. CARDIOVASCULAR: Regular rhythm and rate. RESPIRATORY: Lungs clear to consultation bilaterally. SKIN: Dressings are intact. ASSESSMENT AND PLAN: 1. Status post small bowel resection/revision. 2. Infectious Disease: The patient is on Zosyn, however, she had a previous culture which showed resistance to organism 2, although cultures are pending. We will consult with Pharmacy and switch to one that is sensitive to both at this time. Aside from this, her white count is elevated which is to be expected. She does not have a fever. However, we will continue aggressive antibiotics. 3. Fluids, Electrolyte, Nutrition: The patient does report a small bowel movement. Nonetheless, start her on TPN with consultation with Dietary and PICC line placement as she might develop an ileus or prolonged hospitalization time. 4. General Disposition: The patient doing very well. No specific concerns. Her pain is well controlled. 5. Prophylaxis: The patient is on Lovenox and sequential compression devices along with early ambulation. William Bee MD /[id number]
--- NOTE | 2019-09-13 10:00 | CR ---
Abdomen 1V Upright CLINICAL HISTORY: Abdominal pain FINDINGS: There is some free peritoneal air under the left hemidiaphragm from recent surgery. There is moderate distention of mid small bowel loops with air-fluid levels IMPRESSION: Recent abdominal surgery Moderate diffuse small bowel distention with air-fluid levels. And the patient has undergone recent surgery this could represent some postoperative ileus. Persistent obstruction is not excluded. Clinical and surgical history correlation necessary.
[2019-09-13] MEDS ORDERED: Meropenem 1 GM in Sodium Chloride 0.9% 100 ML IV ONE (11:00)
[2019-09-13] MEDS: 1: AA 5%/Calcium/D15W/Lytes 1,000 ML with MVI, Adult with Vitamin K 10 ML, Chromium/Copp IV SCH ×3 (15:53)
[2019-09-13] MEDS: Fat Emulsion 100 ML IV SCH (16:00)
[2019-09-13] MEDS: Meropenem 1 GM in Sodium Chloride 0.9% 100 ML IV SCH (17:02)
[2019-09-14] MEDS: Meropenem 1 GM in Sodium Chloride 0.9% 100 ML IV SCH ×3 (02:20→17:04)
[2019-09-14] MEDS: 1: AA 5%/Calcium/D15W/Lytes 1,000 ML with MVI, Adult with Vitamin K 10 ML, Chromium/Copp IV SCH ×6 (07:43→17:15)
[2019-09-14] MEDS ORDERED: Central Total Parenteral Nutrition Bag IV SCH (08:15)
--- NOTE | 2019-09-14 10:21 | PN ---
DATE OF SERVICE: 09/14/2019 SUBJECTIVE: The patient is doing much better today. Pain is well controlled. No nausea, vomiting, shortness of breath, or chest pain. The patient had a small bowel movement. OBJECTIVE: VITAL SIGNS: Stable. CARDIOVASCULAR: Regular rhythm and rate. RESPIRATORY: Lungs clear to auscultation bilaterally. Dressing is intact. ASSESSMENT: Status post small bowel resection. PLAN: 1. Infectious Disease will continue same IV antibiotics at this time. The white blood cell count has responded nicely. 2. Fluid, Electrolyte, Nutrition: We will continue the TPN at this time. We will start her on some slow clear liquids today. 3. Prophylaxis: The patient remains on Lovenox and early ambulation. 4. Genitourinary: Urine output is adequate per nursing report. We will discontinue her Huang catheter today. William Bee MD /[id number]
[2019-09-14] MEDS: Enoxaparin 40 MG/0.4 ML Syringe SUBCUT SCH (11:09)
[2019-09-14] MEDS: Sodium Chloride 0.9% 1,000 ML IV SCH (11:14)
[2019-09-14] MEDS: ZOLMITRIPTAN 5 MG PO PRN (17:14)
[2019-09-14] MEDS: Fat Emulsion 100 ML IV SCH (17:17)
[2019-09-14] MEDS ORDERED: 1: AA 5%/Calcium/D15W/Lytes 1,000 ML with MVI, Adult with Vitamin K 10 ML, Chromium/Copp IV SCH ×3 (21:45)
[2019-09-14] MEDS: HYDROmorphone/Normal Saline 15 MG/30 ML PCA IV PRN (22:53)
[2019-09-15] MEDS: Meropenem 1 GM in Sodium Chloride 0.9% 100 ML IV SCH ×3 (02:25→18:09)
[2019-09-15] MEDS: ZOLMITRIPTAN 5 MG PO PRN (08:45)
[2019-09-15] MEDS: 1: AA 5%/Calcium/D15W/Lytes 1,000 ML with MVI, Adult with Vitamin K 10 ML, Chromium/Copp IV SCH ×3 (09:13)
[2019-09-15] MEDS: Enoxaparin 40 MG/0.4 ML Syringe SUBCUT SCH (09:14)
--- NOTE | 2019-09-15 11:25 | PN ---
DATE OF SERVICE: 09/15/2019 SUBJECTIVE: The patient has not changed much today. Pain is well controlled. No nausea, vomiting, shortness of breath, or chest pain. Drain output is still serosanguineous. OBJECTIVE: VITAL SIGNS: Stable. She is afebrile. CARDIOVASCULAR: Regular rhythm and rate. RESPIRATORY: Lungs clear to auscultation bilaterally. GASTROINTESTINAL: Incision healing well. ASSESSMENT: Status post small bowel resection. PLAN: 1. Infectious Disease. Her white blood cell count is slightly elevated today. We will repeat in a.m. and if it is again elevated, we will consider CT scan in a.m. Continue same antibiotics. No sensitivity report from abdominal culture back yet. 2. Fluids, Electrolytes, and Nutrition. No bowel movement yet. We will do flat and upright abdominal films today. 3. Prophylaxis. The patient remains on Lovenox and early ambulation. William Bee MD /[id number]
--- NOTE | 2019-09-15 12:09 | CRLCR ---
INDICATION: Abdominal pain. Elevated white blood cell count. COMPARISON: CT scan done 09/12/2019. FINDINGS: Flat and upright AP views of the abdomen were obtained. There are four drainage catheter overlying the abdomen and pelvis. There are surgical clips in the midline of the pelvis. On the upright film there are nonspecific air-fluid levels in loops of bowel and in the stomach. This could be secondary to an ileus. Dictated by Ba Gonzalez MD @ Sep 15 2019 12:08PM Signed by Dr. Ba Gonzalez @ Sep 15 2019 12:08PM
[2019-09-15] MEDS ORDERED: Iohexol 647 MG/ML 50 ML SDV PO SCH (14:00)
[2019-09-15] MEDS ORDERED: Iohexol 300 MG/ML 30 ML Bottle ONE (14:49)
[2019-09-15] MEDS: Fat Emulsion 100 ML IV SCH (16:26)
--- NOTE | 2019-09-15 16:51 | CRLCT ---
INDICATION: abdominal pain/ileus HISTORY: Abdominal pain/ileus. COMPARISON: CT of the abdomen and pelvis, 09/12/2019. Abdominal radiographs, 09/15/2019. CT of the abdomen and pelvis, 09/01/2019, 08/11/2019. TECHNIQUE: CT of the abdomen and pelvis with positive enteric contrast media. No intravenous contrast administered. Coronal/sagittal reconstruction images. FINDINGS: Lung bases: There are small, bilateral pleural effusions, which are new from 09/12/2019. There is no pericardial effusion. There is passive atelectasis adjacent to the pleural effusions. There is no basilar pneumothorax. Abdomen/pelvis: Numerous surgical drains are present in the pelvis. There is diffuse third-spacing of fluid, with subcutaneous edema, abdominal/pelvic ascites, and fold thickening throughout the small bowel or colon. Pneumoperitoneum, which has diminished when compared with 09/12/2019. Non cirrhotic liver morphology with hepatomegaly. Diffuse hepatic steatosis. Stable benign-appearing cyst in segment IV of the liver, measuring 12 mm in image 39, series 2. 2 mm stone in the right kidney on image 63, series 2. No hydronephrosis or solid renal mass. The spleen size is normal. There is no pancreatic mass or pancreatic duct dilation. No glandular atrophy. Gas within urinary bladder, presumably from prior catheterization. No adnexal mass. There is a faint amount of positive contrast media present within the splenic flexure of the colon. This is seen best on image 46, series 2. There is also a small amount of contrast present within the transverse colon. There is no drainable or loculated fluid collection on this non IV enhanced CT scan. There is no pelvic lymphadenopathy by size criteria. No retroperitoneal or gastrohepatic ligament adenopathy. Small bowel dilatation has improved when compared with 09/12/2019. Loops of small bowel measure up to 35 millimeters in dimension. There is no clear transition point. There is diffuse fold thickening, which is likely related to 3rd spacing of fluid, and should be correlated with a history of hypo proteinemia. The bone windows demonstrate no suspicious lytic or blastic bone lesions. The alignment is preserved. Vertebral body heights are maintained on sagittal reconstruction images. IMPRESSION: 1. Majority of the positive enteric contrast is present within the stomach and small bowel. 2. Faint amount of positive enteric contrast is present in the colon, which was not present on the study from 09/12/2019. The appearance suggests a postoperative adynamic ileus rather than a complete, mechanical small-bowel obstruction. 3. Diffuse third-spacing of fluid, with small, bilateral pleural effusions. Effusions are new from 09/12/2019. 4. Pneumoperitoneum has diminished in extent from previous. 5. Gas within the urinary bladder, which could be from recent catheterization. If there has not been recent catheterization, consider urinalysis/urine culture to exclude UTI. 6. No drainable fluid collection on the current exam. 7. Report called to Dr. Bee, Surgical Service, 09/15/19, 1649 hours. Dictated by William Mcgarry MD @ 09/15/2019 4:50:18 PM Please note that all CT scans at this facility use dose modulation, iterative reconstruction, and/or weight-based dosing when appropriate to reduce radiation dose to as low as reasonably achievable. Dictated by: William Mcgarry MD @ 09/15/2019 16:50:27 (Electronically Signed)
[2019-09-15] MEDS ORDERED: Furosemide 20 MG/2 ML VIAL IVPUSH ONE ×2 (16:54→20:30)
[2019-09-15] MEDS ORDERED: Furosemide 20 MG/2 ML VIAL ONE (18:02)
[2019-09-15] MEDS ORDERED: Vancomycin 1 GM SDV IV SCH (21:00)
[2019-09-15] MEDS ORDERED: 1: AA 5%/Calcium/D15W/Lytes 1,000 ML with MVI, Adult with Vitamin K 10 ML, Chromium/Copp IV SCH ×3 (23:30)
[2019-09-15] MEDS: Sodium Chloride 0.9% 1,000 ML IV SCH (23:44)
[2019-09-16] MEDS: Meropenem 1 GM in Sodium Chloride 0.9% 100 ML IV SCH ×3 (02:39→17:45)
[2019-09-16] MEDS: ZOLMITRIPTAN 5 MG PO PRN (05:12)
[2019-09-16] MEDS: Enoxaparin 40 MG/0.4 ML Syringe SUBCUT SCH (08:11)
--- NOTE | 2019-09-16 11:06 | PCM.CONS ---
H&P History of Present Illness - General Date of Service: 09/16/19 Admit Problem/Dx: Admission Diagnosis/Problem Admission Diagnosis/Problem Abscess Source of Information: Patient, Provider, RN Notes Reviewed History Limitations: Reports: No Limitations - History of Present Illness Initial Comments - Free Text/Narative: Ms. Armenta is a 69-year-old woman who I been asked to see by Dr. Bee for evaluation of hypoxia and leukocytosis. She was admitted to this facility on August 31 with bowel obstruction and did undergo surgery with exploratory laparotomy requiring lysis of adhesions and partial bowel resection. She was discharged home after that hospitalization but then readmitted on 11 September with fever and white blood cell count elevation. CT scan showed evidence of underlying abscess and exploratory laparotomy was performed for drainage of the abscess. She has been on IV antibiotic therapy with meropenem. Cultures from the time of surgery have grown out E. coli and Klebsiella both sensitive to the meropenem. Unfortunately yesterday she was not feeling as well more weak and borderline hypotensive with elevated heart rate and increase in white blood cell count. CT scan of the abdomen and pelvis was obtained and showed no evidence of new abscess or other localized area of infection. Vancomycin was added to antibiotic regimen. She is feeling somewhat better today last week with better blood pressures. She has developed some fluid overload with peripheral edema and has had some ongoing hypoxia, currently requiring 3 L of oxygen per minute to obtain acceptable oxygen saturations. She has been afebrile, white blood cell count is further elevated today. She denies feeling short of breath and is not had significant cough. Denies any other areas of localized infection. Abdomen Pain Score (Numeric/FACES): 2 - Related Data Allergies/Adverse Reactions: Allergies Allergy/AdvReac Type Severity Reaction Status Date / Time No Known Allergies Allergy Verified 09/12/19 16:26 Home Medications: Home Meds Bismuth Subsalicylate [Pepto-Bismol] 15 ml PO TID PRN 08/11/19 [History] Loperamide HCl [Imodium A-D] 2 mg PO BID PRN 08/11/19 [History] ZOLMitriptan [Zolmitriptan] 5 mg PO ASDIRECTED PRN 08/12/19 [History] Hydrocodone/Acetaminophen [Hydrocodon-Acetaminophen 5-325] 1 tab PO Q6H PRN [History] Sulfamethoxazole/Trimethoprim [Bactrim Ds Tablet] 0 tab PO ASDIRECTED 09/12/19 [ History] Past Medical History HEENT History: Reports: Impaired Vision Gastrointestinal History: Reports: Chronic Diarrhea HAND SHAKER 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: Reports: Neurological History: Reports: Migraines Endocrine/Metabolic History: Reports: Other (See Below) Other Endocrine/Metabolic History: hx Graves disease - Past Surgical History Head Surgeries/Procedures: Reports: None HEENT Surgical History: Reports: Tonsillectomy GI Surgical History: Reports: Appendectomy, Hernia Repair/Other, Lysis of Adhesions, Small Bowel Endocrine Surgical History: Reports: Other (See Below) Other Endocrine Surgeries/Procedures: thyroid radiation Neurological Surgical History: Reports: None Dermatological Surgical History: Reports: None Social & Family History - Family History Family Medical History: Noncontributory - Tobacco Use Smoking Status *Q: Former Smoker Used Tobacco, but Quit: No Month/Year Tobacco Last Used: 08/2019 Second Hand Smoke Exposure: No - Caffeine Use Caffeine Use: Reports: Tea - Recreational Drug Use Recreational Drug Use: No H&P Review of Systems - Review of Systems: Review Of Systems: See Below General: Reports: Malaise, Weakness, Decreased Appetite. Denies: Fever, Chills Pulmonary: Reports: No Symptoms Cardiovascular: Reports: Edema. Denies: Chest Pain, Palpitations, Dyspnea on Exertion, Orthopnea, PND, Lightheadedness Gastrointestinal: Reports: Abdominal Pain. Denies: Constipation, Diarrhea, Difficulty Swallowing, Distension, Hematemesis, Hematochezia, Melena, Nausea, Vomiting Genitourinary: Reports: No Symptoms Musculoskeletal: Reports: No Symptoms Skin: Reports: No Symptoms Psychiatric: Reports: No Symptoms Neurological: Reports: No Symptoms Hematologic/Lymphatic: Reports: No Symptoms Exam - Exam Exam: See Below - Vital Signs Vital Signs: Last Vital Signs Temp 96.9 F 09/16/19 10:35 Pulse 96 09/16/19 10:35 Resp 16 09/16/19 10:35 BP 102/68 09/16/19 10:35 Pulse Ox 99 09/16/19 10:35 Weight: 126 lb 12.8 oz - Exam Quality Assessment: Supplemental Oxygen, Central Line/PICC, DVT Prophylaxis General: Alert, Oriented, Cooperative, Mild Distress Neck: Supple, Trachea Midline Lungs: Clear to Auscultation, Normal Respiratory Effort Cardiovascular: Regular Rate, Regular Rhythm, Normal S1, Normal S2. No: Systolic Murmur, Diastolic Murmur GI/Abdominal Exam: Soft, No Organomegaly, Tender. No: Distended, Guarding, Rigid, Rebound Back Exam: Normal Inspection, Full Range of Motion Extremities: Non-Tender, Pedal Edema - Patient Data Lab Results Last 24 hrs: Laboratory Results - last 24 hr 09/15/19 09/16/19 09/16/19 Range/Units 16:57 07:00 07:20 WBC 22.3 H (4.5-11.0) K/uL RBC 3.66 (3.30-5.50) M/uL Hgb 11.3 L (12.0-15.0) g/dL Hct 32.6 L (36.0-48.0) % MCV 89 (80-98) fL MCH 31 (27-31) pg MCHC 35 (32-36) % Plt Count 391 (150-400) K/uL Sodium 135 L (140-148) mmol/L Potassium 4.1 (3.6-5.2) mmol/L Chloride 98 L (100-108) mmol/L Carbon Dioxide 34 H (21-32) mmol/L Anion Gap 7.1 (5.0-14.0) mmol/L BUN 15 (7-18) mg/dL Creatinine 0.4 L (0.6-1.0) mg/dL Est Cr Clr Drug Dosing 123.92 mL/min Estimated GFR (MDRD) > 60 (>60) Glucose 90 (74-106) mg/dL Calcium 7.5 L (8.5-10.1) mg/dL Phosphorus 2.3 L (2.5-4.9) mg/dL Magnesium 2.2 (1.8-2.4) mg/dL Urine Color Yellow (YELLOW) Urine Appearance Clear (CLEAR) Urine pH 7.0 (5.0-8.0) Ur Specific Critz 1.025 (1.008-1.030) Urine Protein Negative (NEGATIVE) mg/dL Urine Glucose (UA) Negative (NEGATIVE) mg/dL Urine Ketones Negative (NEGATIVE) mg/dL Urine Occult Blood Trace-lysed H (NEGATIVE) Urine Nitrite Negative (NEGATIVE) Urine Bilirubin Negative (NEGATIVE) Urine Urobilinogen 0.2 (0.2-1.0) EU/dL Ur Leukocyte Esterase Negative (NEGATIVE) Urine RBC 0-5 (0-5) Urine WBC 0-5 (0-5) Ur Epithelial Cells Rare Amorphous Sediment Few Urine Bacteria Not seen Urine Mucus Not seen Result Diagrams: 09/16/19 07:00 09/16/19 07:20 Juan Results Last 24 hrs: Microbiology 09/12/19 20:36 Gram Stain - Final Abdominal Fluid - Aspirate Wound Culture - Final Escherichia Coli Klebsiella Oxytoca Anaerobic Culture - Final NO GROWTH AFTER 3 DAYS Sepsis Event Note - Evaluation Sepsis Screening Result: Sepsis Risk - Focused Exam Vital Signs: Vital Signs Temp Pulse Resp BP Pulse Ox 09/16/19 10:35 96.9 F 96 16 102/68 99 09/16/19 07:10 94 L 09/16/19 07:01 97.7 F 107 H 16 111/76 97 09/16/19 02:40 96.9 F 106 H 18 118/78 92 L 09/16/19 00:57 98 Date Exam was Performed: 09/16/19 Time Exam was Performed: 11:07 *Q Meaningful Use (ADM) - VTE Risk Assess *Q Each Risk Factor Represents 1 Point: Swollen Legs, Current Total Score 1 Point Risk Factors: 1 Each Risk Factor Represents 2 Points: Age 60 - 74 Years Total Score 2 Point Risk Factors: 2 Each Risk Factor Represents 3 Points: None Total Score 3 Point Risk Factors: 0 Each Risk Factor Represents 5 Points: None Total Score 5 Point Risk Factors: 0 Venous Thromboembolism Risk Factor Score *Q: 3 Consult PN Assessment/Plan Procedures: Procedures ASSAY OF LACTIC ACID (09/01/19) ASSAY OF LIPASE (09/01/19) ASSAY OF VANCOMYCIN (09/01/19) ASSAY THYROID STIM HORMONE (09/01/19) COMPLETE CBC AUTOMATED (09/01/19) COMPLETE CBC W/AUTO DIFF WBC (09/01/19) COMPREHEN METABOLIC PANEL (09/01/19) CT ABD & PELV W/CONTRAST (09/01/19) CT ABD & PELVIS W/O CONTRAST (08/11/19) CULTR BACTERIA EXCEPT BLOOD (08/11/19) CULTURE AEROBIC IDENTIFY (09/01/19) CULTURE OTHR SPECIMN AEROBIC (09/01/19) EMERGENCY DEPT VISIT (09/01/19) EMERGENCY DEPT VISIT (09/01/19) EMERGENCY DEPT VISIT (08/11/19) EMERGENCY DEPT VISIT (08/11/19) HYDRATE IV INFUSION ADD-ON (09/01/19) METABOLIC PANEL TOTAL CA (09/01/19) MICROBE SUSCEPTIBLE JUAN (09/01/19) REMOVAL OF SMALL INTESTINE (09/01/19) ROUTINE VENIPUNCTURE (09/01/19) SMEAR GRAM STAIN (09/01/19) THER/PROPH/DIAG INJ IV PUSH (09/01/19) TISSUE EXAM BY PATHOLOGIST (09/01/19) TX/PRO/DX INJ NEW DRUG ADDON (09/01/19) URINALYSIS AUTO W/SCOPE (09/01/19) WITHDRAWAL OF ARTERIAL BLOOD (08/11/19) X-RAY EXAM ABDOMEN 1 VIEW (09/01/19) X-RAY EXAM ABDOMEN 2 VIEWS (08/11/19) X-RAY EXAM CHEST 2 VIEWS (09/01/19) Problem List Initiated/Reviewed/Updated: Yes My Orders Last 24 Hours: My Active Orders 09/16/19 10:44 Ang Chest [CT] Stat 09/16/19 11:00 Levofloxacin/Dextrose 5%-Water [Levaquin in D5W 750 MG/150 ML] 750 mg Premix Bag 1 bag IV Q24H 09/16/19 21:00 Lactobacillus Rhamnosus GG [Culturelle] 1 cap PO BID Plan: ASSESSMENT AND RECOMMENDATIONS STATUS POST INITIAL EXPLORATORY LAPAROTOMY FOR SMALL BOWEL OBSTRUCTION-followed by recurrent surgery because of abscess development. Is remained fairly weak and developed progressive leukocytosis, no fevers. Somewhat improved since yesterday with addition of vancomycin to antibiotic regimen. Repeat cultures were obtained yesterday. CT scan of abdomen obtained yesterday showing no evidence of new abscess or potential area of infection in the abdomen. -Blood cultures pending -Continue IV vancomycin and meropenem -IV levofloxacin, pending CT scan of the chest -Postoperative care as per Dr. Bee HYPOXIA-likely secondary to fluid overload, agree with current use of furosemide. -CT scan of the chest with contrast to evaluate for underlying infiltrate and/ or PE. -Furosemide as ordered by Dr. Bee -Reassess fluid status in a.m. Requesting Provider: RW Date Consult Requested: 09/15/19 Reason for Consult: Leukocytosis, hypoxia Patient History Reviewed: Yes Notified Requestor: Yes
--- NOTE | 2019-09-16 11:50 | PN ---
DATE OF SERVICE: 09/16/2019 SUBJECTIVE: The patient subjectively feels significantly better today. No nausea, vomiting, shortness of breath, or chest pain. Passing very small amount of gas. No bowel movement. OBJECTIVE: VITAL SIGNS: Stable. Afebrile. CARDIOVASCULAR: Regular rhythm and rate. RESPIRATORY: Lungs clear to auscultation bilaterally. GASTROINTESTINAL: Incision healing well. No evidence of infection on incision examination. Not painful to palpation. No redness. No rebound. No guarding. All drains show serosanguinous output. ASSESSMENT: Status post small bowel resection. PLAN: 1. Infectious Disease: Her white blood cell count is elevated this morning; however, the patient does feel subjectively better. I did ask Hospitalist Service to help us with the etiology of this infection. They are going to change the antibiotics today. 2. Fluid, Electrolytes, and Nutrition: Should we do see some oral contrast going into the colon, we will continue the TPN at this time and continued on a small amount of clear liquids. 3. General Disposition: Overall, the patient does feel significantly better. 4. Respiratory: She had a good response to the Lasix last night. Hospitalist Service will continue to manage this. William Bee MD /[id number]
[2019-09-16] MEDS ORDERED: Sodium Chloride 0.9% 10 ML Syringe FLUSH ONE (12:28)
[2019-09-16] MEDS ORDERED: Iopamidol 755 Mg/ML 100 ML Bottle IV SCH (12:30)
[2019-09-16] MEDS ORDERED: Sodium Chloride 0.9% 100 ML IV SCH (12:30)
[2019-09-16] MEDS: Levofloxacin/Dextrose 5%-Water 750 MG in Premix Bag 1 BAG IV SCH (13:19)
[2019-09-16] MEDS: 1: AA 5%/Calcium/D15W/Lytes 1,000 ML with MVI, Adult with Vitamin K 10 ML, Chromium/Copp IV SCH ×3 (14:14)
--- NOTE | 2019-09-16 14:16 | CRLCT ---
INDICATION: Postop hypoxia leukocytosis. TECHNIQUE: Contrast-enhanced CT chest. Coronal sagittal reformatted images obtained. COMPARISON: CT abdomen and pelvis dated 09/15/2019. FINDINGS: Normal caliber thoracic aorta. Adequate opacification of the pulmonary arteries. No filling defects in pulmonary arteries. The heart size is normal. No significant pericardial effusion. No mediastinal hilar adenopathy. Small to moderate effusions which are not significantly changed. Bibasilar atelectasis and consolidation. Moderate emphysema. Biapical pleural parenchymal probable fibrotic change asymmetric on the right. There is no central endobronchial lesion. No suspicious bone lesions. Impression : 1. No pulmonary emboli. 2. Small to moderate pleural effusions without significant change. Bibasilar atelectasis and consolidation. 3. Moderate emphysema. Please note that all CT scans at this facility use dose modulation, iterative reconstruction, and/or weight-based dosing when appropriate to reduce radiation dose to as low as reasonably achievable. Dictated by Ashley Zamora MD @ Sep 16 2019 2:07PM Signed by Dr. Ashley Zamora @ Sep 16 2019 2:15PM
[2019-09-16] MEDS: HYDROmorphone/Normal Saline 15 MG/30 ML PCA IV PRN (15:20)
[2019-09-16] MEDS ORDERED: Furosemide 20 MG/2 ML VIAL IVPUSH ONE ×2 (15:30→16:54)
[2019-09-16] MEDS: Fat Emulsion 100 ML IV SCH (15:41)
[2019-09-16] MEDS: Lactobacillus Rhamnosus GG (Probiotic) Cap PO SCH (22:08)
[2019-09-17] MEDS: Meropenem 1 GM in Sodium Chloride 0.9% 100 ML IV SCH ×3 (02:18→17:04)
[2019-09-17] MEDS: 1: AA 5%/Calcium/D15W/Lytes 1,000 ML with MVI, Adult with Vitamin K 10 ML, Chromium/Copp IV SCH ×6 (04:39→19:14)
[2019-09-17] MEDS: Lactobacillus Rhamnosus GG (Probiotic) Cap PO SCH ×2 (10:02→21:24)
[2019-09-17] MEDS: Enoxaparin 40 MG/0.4 ML Syringe SUBCUT SCH (10:02)
--- NOTE | 2019-09-17 10:52 | PCM.CONSN ---
- General Info Date of Service: 09/17/19 Subjective Update: No acute events overnight. She reports that she feels a little better today. Abdominal pain is very well controlled. Still feels a little short of breath and is requiring supplemental oxygen. Did not respond very well to low-dose furosemide yesterday. Still has a fair amount of edema in both lower extremities. She has not had any fevers. Did have a bowel movement this morning. Tolerating TPN. White blood cell count is stable today compared to yesterday. Functional Status: Reports: Pain Controlled - Review of Systems General: Denies: Fever Pulmonary: Reports: Shortness of Breath Gastrointestinal: Denies: Abdominal Pain - Patient Data Vitals - Most Recent: Last Vital Signs Temp 36.1 C 09/17/19 07:44 Pulse 104 H 09/17/19 07:44 Resp 16 09/17/19 07:44 BP 106/71 09/17/19 07:44 Pulse Ox 94 L 09/17/19 07:44 Weight - Most Recent: 56.336 kg I&O - Last 24 Hours: Intake & Output 09/16/19 09/17/19 09/17/19 22:59 06:59 14:59 Intake Total 2398 1355 590 Output Total 2000 980 580 Balance 398 375 10 Lab Results Last 24 Hours: Laboratory Results - last 24 hr 09/16/19 09/17/19 09/17/19 Range/Units 12:25 06:55 06:55 WBC 22.2 H (4.5-11.0) K/uL RBC 3.39 (3.30-5.50) M/uL Hgb 10.1 L (12.0-15.0) g/dL Hct 30.5 L (36.0-48.0) % MCV 90 (80-98) fL MCH 30 (27-31) pg MCHC 33 (32-36) % Plt Count 353 (150-400) K/uL Sodium 134 L (140-148) mmol/L Potassium 4.6 (3.6-5.2) mmol/L Chloride 100 (100-108) mmol/L Carbon Dioxide 33 H (21-32) mmol/L Anion Gap 5.6 (5.0-14.0) mmol/L BUN 15 (7-18) mg/dL Creatinine 0.3 L (0.6-1.0) mg/dL Est Cr Clr Drug Dosing 164.96 mL/min Estimated GFR (MDRD) > 60 (>60) Glucose 106 (74-106) mg/dL Calcium 7.4 L (8.5-10.1) mg/dL Phosphorus 2.4 L (2.5-4.9) mg/dL Magnesium 2.0 (1.8-2.4) mg/dL Total Bilirubin 0.2 D (0.2-1.0) mg/dL Direct Bilirubin 0.06 (0.0-0.2) mg/dL Indirect Bilirubin TNP AST 51 H D (15-37) U/L ALT 40 (12-78) U/L Alkaline Phosphatase 103 (46-116) U/L Total Protein 5.2 L (6.4-8.2) g/dL Albumin 1.4 L (3.4-5.0) g/dL Globulin 3.8 H (2.3-3.5) g/dL Albumin/Globulin Ratio 0.4 L (1.2-2.2) Triglycerides 145 (15-150) mg/dL Juan Results Last 24 Hours: Microbiology 09/16/19 07:05 Aerobic Blood Culture - Preliminary Blood - Picc Line NO GROWTH AFTER 1 DAY Anaerobic Blood Culture - Preliminary NO GROWTH AFTER 1 DAY 09/16/19 07:20 Aerobic Blood Culture - Preliminary Blood - Arm, Left NO GROWTH AFTER 1 DAY Anaerobic Blood Culture - Preliminary NO GROWTH AFTER 1 DAY 09/12/19 20:36 Gram Stain - Final Abdominal Fluid - Aspirate Wound Culture - Final Escherichia Coli Klebsiella Oxytoca Anaerobic Culture - Final NO GROWTH AFTER 3 DAYS Med Orders - Current: Current Medications Benzocaine/Menthol (Cepacol Sore Throat) 1 lozenge MUCMEM Q1H PRN PRN Reason: Sore Throat Diphenhydramine HCl (Benadryl) 50 mg IVPUSH Q4H PRN PRN Reason: Itching Enoxaparin Sodium (Lovenox) 40 mg SUBCUT DAILY DEBI Last Admin: 09/17/19 10:02 Dose: 40 mg Hydromorphone HCl (Dilaudid Slide Machine Tender 15 Mg In Ns 30 Ml) 0 mg IV ASDIRECTED PRN; Protocol PRN Reason: Pain Last Admin: 09/16/19 15:20 Dose: 15 mg Sodium Chloride (Normal Saline) 1,000 mls @ 30 mls/hr IV ASDIRECTED [facility] Last Admin: 09/15/19 23:44 Dose: 30 mls/hr Meropenem 1 gm/ Sodium (Chloride) 100 mls @ 200 mls/hr IV Q8H [facility] Last Admin: 09/17/19 10:09 Dose: 200 mls/hr Fat Emulsion Intravenous (Intralipid 20%) 100 mls @ 8.3 mls/hr IV Q24H [facility] Last Admin: 09/16/19 15:41 Dose: 8.3 mls/hr Vancomycin HCl 1 gm/ Sodium (Chloride) 250 mls @ 166.667 mls/hr IV Q12H [facility] Last Admin: 09/17/19 10:46 Dose: 166.667 mls/hr Levofloxacin/Dextrose 750 mg/ (Premix) 150 mls @ 100 mls/hr IV Q24H [facility] Last Admin: 09/16/19 13:19 Dose: 100 mls/hr Multivitamins/Minerals 10 ml/Chromium/Copper/Manganese/Seleni/Zn 1 ml/ Amino Ac/ Electrol/Dextrose/Calcium 1,011 mls @ 70 mls/hr IV .BY DURATION [facility] Last Admin: 09/16/19 14:14 Dose: 70 mls/hr Amino Ac/Electrol/Dextrose/Calcium (Clinimix E 10/11) 1,000 mls @ 70 mls/hr IV .BY DURATION [facility] Last Admin: 09/17/19 04:39 Dose: 70 mls/hr Lactobacillus Rhamnosus (Culturelle) 1 cap PO BID [facility] Last Admin: 09/17/19 10:02 Dose: 1 cap Naloxone HCl (Narcan) 0.4 mg IVPUSH Q2M PRN PRN Reason: Respiratory Distress Zolmitriptan 5mg (Ptom) 0 each PO ASDIRECTED PRN PRN Reason: MIGRAINES Last Admin: 09/16/19 05:12 Dose: 1 each Sodium Chloride (Saline Flush) 10 ml FLUSH ASDIRECTED PRN PRN Reason: Keep Vein Open Last Admin: 09/12/19 17:03 Dose: 10 ml Zolpidem Tartrate (Ambien) 5 mg PO BEDTIME PRN PRN Reason: Insomnia Discontinued Medications Bupivacaine HCl/Epinephrine Bitart (Marcaine 0.5%/Epinephrine 1:200,000) Confirm Administered Dose 50 ml .ROUTE .STK-MED ONE Stop: 09/12/19 19:44 Last Admin: 09/12/19 21:10 Dose: 35 ml Dexamethasone (Dexamethasone) Confirm Administered Dose 4 mg .ROUTE .STK-MED ONE Stop: 09/12/19 19:50 Dexamethasone (Dexamethasone) Confirm Administered Dose 8 mg .ROUTE .STK-MED ONE Stop: 09/12/19 19:55 Epinephrine HCl (Adrenalin) Confirm Administered Dose 1 mg .ROUTE .STK-MED ONE Stop: 09/12/19 19:55 Fentanyl (Sublimaze) 50 mcg IVPUSH ONETIME ONE Stop: 09/12/19 16:49 Last Admin: 09/12/19 17:01 Dose: 50 mcg Fentanyl (Sublimaze) Confirm Administered Dose 250 mcg .ROUTE .STK-MED ONE Stop: 09/12/19 19:51 Furosemide (Lasix) 10 mg IVPUSH ONETIME ONE Stop: 09/15/19 16:55 Last Admin: 09/15/19 18:05 Dose: 10 mg Furosemide (Lasix) Confirm Administered Dose 20 mg .ROUTE .STK-MED ONE Stop: 09/15/19 18:03 Last Admin: 09/15/19 18:06 Dose: Not Given Furosemide (Lasix) 10 mg IVPUSH ONETIME ONE Stop: 09/15/19 20:31 Last Admin: 09/15/19 21:33 Dose: 10 mg Furosemide (Lasix) 10 mg IVPUSH ONETIME ONE Stop: 09/16/19 15:31 Last Admin: 09/16/19 15:24 Dose: 10 mg Glycopyrrolate (Robinul) Confirm Administered Dose 1 mg .ROUTE .STK-MED ONE Stop: 09/12/19 19:50 Hydromorphone HCl (Dilaudid) Confirm Administered Dose 0.5 mg .ROUTE .STK-MED ONE Stop: 09/12/19 21:56 Last Admin: 09/12/19 22:11 Dose: Not Given Hydromorphone HCl (Dilaudid) 0.5 mg IVPUSH ONETIME ONE Stop: 09/12/19 22:03 Last Admin: 09/12/19 22:12 Dose: 0.5 mg Hydromorphone HCl (Dilaudid) 0.5 mg IVPUSH ONETIME ONE Stop: 09/12/19 22:09 Last Admin: 09/12/19 22:32 Dose: Not Given Hydroxyzine HCl (Vistaril) 100 mg IM Q4H PRN PRN Reason: Nausea Lactated Ringer's (Ringers, Lactated) 1,000 mls @ 999 mls/hr IV ASDIRECTED [facility] Last Admin: 09/12/19 17:04 Dose: 999 mls/hr Piperacillin Sod/Tazobactam (Sod 4.5 gm/ Sodium Chloride) 100 mls @ 100 mls/hr IV ONETIME ONE Stop: 09/12/19 20:13 Last Admin: 09/12/19 19:29 Dose: 100 mls/hr Sodium Chloride (Normal Saline) Confirm Administered Dose 500 mls @ as directed .ROUTE .STK-MED ONE Stop: 09/12/19 20:05 Piperacillin Sod/Tazobactam (Sod 4.5 gm/ Sodium Chloride) 100 mls @ 100 mls/hr IV Q6H [facility] Last Admin: 09/13/19 02:05 Dose: 100 mls/hr Sodium Chloride (Normal Saline) 250 mls @ 250 mls/hr IV ONETIME ONE Stop: 09/13/19 03:29 Last Admin: 09/13/19 02:39 Dose: 250 mls/hr Sodium Chloride (Normal Saline) 250 mls @ 250 mls/hr IV ONETIME ONE Stop: 09/13/19 06:30 Last Admin: 09/13/19 05:30 Dose: 250 mls/hr Piperacillin/Tazobactam/ (Dextrose 4.5 gm/ Premix) 100 mls @ 200 mls/hr IV Q6H [facility] Last Admin: 09/13/19 08:16 Dose: 200 mls/hr Meropenem 1 gm/ Sodium (Chloride) 100 mls @ 200 mls/hr IV ONETIME ONE Stop: 09/13/19 11:29 Last Admin: 09/13/19 11:18 Dose: 200 mls/hr Multivitamins/Minerals 10 ml/Chromium/Copper/Manganese/Seleni/Zn 1 ml/ Amino Ac/ Electrol/Dextrose/Calcium 1,011 mls @ 70 mls/hr IV .BY DURATION [facility] Stop: 09/14/19 16:20 Last Admin: 09/13/19 15:53 Dose: 70 mls/hr Amino Ac/Electrol/Dextrose/Calcium (Clinimix E 5/15) 1,000 mls @ 70 mls/hr IV .BY DURATION [facility] Stop: 09/14/19 16:20 Last Admin: 09/14/19 07:43 Dose: 70 mls/hr Multivitamins/Minerals 10 ml/Chromium/Copper/Manganese/Seleni/Zn 1 ml/ Amino Ac/ Electrol/Dextrose/Calcium 1,011 mls @ 70 mls/hr IV .BY DURATION [facility] Stop: 09/15/19 20:00 Last Admin: 09/14/19 17:15 Dose: 70 mls/hr Amino Ac/Electrol/Dextrose/Calcium (Clinimix E 5/15) 1,000 mls @ 70 mls/hr IV .BY DURATION [facility] Stop: 09/15/19 20:00 Last Admin: 09/15/19 09:13 Dose: 70 mls/hr Multivitamins/Minerals 10 ml/Chromium/Copper/Manganese/Seleni/Zn 1 ml/ Amino Ac/ Electrol/Dextrose/Calcium 1,011 mls @ 70 mls/hr IV .BY DURATION [facility] Stop: 09/16/19 13:30 Last Admin: 09/15/19 23:44 Dose: 70 mls/hr Amino Ac/Electrol/Dextrose/Calcium (Clinimix E 5/15) 1,000 mls @ 70 mls/hr IV .BY DURATION [facility] Stop: 09/16/19 13:30 Vancomycin HCl 0.75 gm/ Sodium (Chloride) 250 mls @ 166.667 mls/hr IV Q12H [facility] Last Admin: 09/15/19 22:13 Dose: 166.667 mls/hr Sodium Chloride (Normal Saline) 100 mls @ 3.5 mls/sec IV ASDIRECTED [facility] Stop: 09/16/19 12:31 Last Admin: 09/16/19 13:06 Dose: 4 mls/sec Iohexol (Omnipaque-300) 50 ml PO .ASDIRECTED [facility] Stop: 09/15/19 14:01 Iohexol (Omnipaque) Confirm Administered Dose 30 ml .ROUTE .[facility] Stop: 09/15/19 14:50 Last Admin: 09/15/19 14:55 Dose: 30 ml Iopamidol (Isovue-370 (76%)) 100 ml IV . DIRECTED [facility] Stop: 09/16/19 12:31 Last Admin: 09/16/19 13:06 Dose: 100 ml Ketorolac Tromethamine (Toradol) Confirm Administered Dose 60 mg .ROUTE .STK- MED ONE Stop: 09/12/19 21:12 Meropenem (Merrem) Confirm Administered Dose 500 mg .ROUTE .STK-MED ONE Stop: 09/12/19 20:43 Last Admin: 09/12/19 20:45 Dose: 500 mg Morphine Sulfate (Morphine Slide Machine Tender 150 Mg In 30 Ml) 0 mg IV ASDIRECTED PRN; Protocol PRN Reason: Pain Naloxone HCl (Narcan) 0.1 mg IV ASDIRECTED PRN PRN Reason: decreased respiratory rate Stop: 09/13/19 00:04 Neostigmine Methylsulfate (Neostigmine) Confirm Administered Dose 5 mg .ROUTE .STK-MED ONE Stop: 09/12/19 19:50 Non-Formulary Medication (Total Parenteral Nutrition, Central) 0 ml IV ONETIME [facility] Stop: 09/14/19 14:00 Ondansetron HCl (Zofran) 4 mg IVPUSH ONETIME ONE Stop: 09/12/19 16:50 Last Admin: 09/12/19 16:59 Dose: 4 mg Ondansetron HCl (Zofran) Confirm Administered Dose 4 mg .ROUTE .STK-MED ONE Stop: 09/12/19 19:50 Propofol (Diprivan 20 Ml) Confirm Administered Dose 200 mg .ROUTE .STK-MED ONE Stop: 09/12/19 19:50 Rocuronium Nathalie (Zemuron) Confirm Administered Dose 50 mg .ROUTE .STK-MED ONE Stop: 09/12/19 19:50 Ropivacaine (Naropin 0.5%) 30 ml .ROUTE .STK-MED ONE Stop: 09/12/19 19:55 Sodium Chloride (Saline Flush) 10 ml FLUSH ONETIME ONE Stop: 09/16/19 12:29 Last Admin: 09/16/19 13:06 Dose: 10 ml Succinylcholine Chloride (Quelicin) Confirm Administered Dose 200 mg .ROUTE .STK -MED ONE Stop: 09/12/19 19:50 Vancomycin HCl (Vancomycin) 1 gm IV .PHARMACY TO DOSE [facility] Stop: 09/16/19 08:00 - Exam Quality Assessment: Supplemental Oxygen General: Alert, Oriented, Cooperative, No Acute Distress Neck: Supple Lungs: Normal Respiratory Effort, Decreased Breath Sounds (both lower and mid lung zones posteriorly ). No: Crackles, Wheezing Cardiovascular: Regular Rhythm, Tachycardia GI/Abdominal Exam: Soft, No Distention Extremities: Pedal Edema. No: Increased Warmth Skin: Warm, Dry Psy/Mental Status: Alert, Normal Affect Sepsis Event Note - Evaluation Sepsis Screening Result: Sepsis Risk - Focused Exam Vital Signs: Vital Signs Temp Pulse Resp BP Pulse Ox 09/17/19 07:44 36.1 C 104 H 16 106/71 94 L 09/17/19 07:15 92 L 09/17/19 03:24 35.9 C L 99 16 108/70 95 09/17/19 00:03 93 L 09/16/19 23:04 35.8 C L 103 H 14 111/74 95 Date Exam was Performed: 09/17/19 Time Exam was Performed: 12:45 Consult PN Assessment/Plan Procedures: Procedures ASSAY OF LACTIC ACID (09/01/19) ASSAY OF LIPASE (09/01/19) ASSAY OF VANCOMYCIN (09/01/19) ASSAY THYROID STIM HORMONE (09/01/19) COMPLETE CBC AUTOMATED (09/01/19) COMPLETE CBC W/AUTO DIFF WBC (09/01/19) COMPREHEN METABOLIC PANEL (09/01/19) CT ABD & PELV W/CONTRAST (09/01/19) CT ABD & PELVIS W/O CONTRAST (08/11/19) CULTR BACTERIA EXCEPT BLOOD (08/11/19) CULTURE AEROBIC IDENTIFY (09/01/19) CULTURE OTHR SPECIMN AEROBIC (09/01/19) EMERGENCY DEPT VISIT (09/01/19) EMERGENCY DEPT VISIT (09/01/19) EMERGENCY DEPT VISIT (08/11/19) EMERGENCY DEPT VISIT (08/11/19) HYDRATE IV INFUSION ADD-ON (09/01/19) METABOLIC PANEL TOTAL CA (09/01/19) MICROBE SUSCEPTIBLE JUAN (09/01/19) REMOVAL OF SMALL INTESTINE (09/01/19) ROUTINE VENIPUNCTURE (09/01/19) SMEAR GRAM STAIN (09/01/19) THER/PROPH/DIAG INJ IV PUSH (09/01/19) TISSUE EXAM BY PATHOLOGIST (09/01/19) TX/PRO/DX INJ NEW DRUG ADDON (09/01/19) URINALYSIS AUTO W/SCOPE (09/01/19) WITHDRAWAL OF ARTERIAL BLOOD (08/11/19) X-RAY EXAM ABDOMEN 1 VIEW (09/01/19) X-RAY EXAM ABDOMEN 2 VIEWS (08/11/19) X-RAY EXAM CHEST 2 VIEWS (09/01/19) Problem List Initiated/Reviewed/Updated: Yes My Orders Last 24 Hours: My Active Orders 09/17/19 10:51 Antiembolic Devices [RC] .Routine Furosemide [Lasix] 40 mg IVPUSH ONETIME ONE ROSALIE Hose [Antiembolic Hose] [OM.PC] Routine Plan: ASSESSMENT AND RECOMMENDATIONS- STATUS POST INITIAL EXPLORATORY LAPAROTOMY FOR SMALL BOWEL OBSTRUCTION-followed by recurrent surgery because of abscess development. Leukocytosis is stable and she is not having fevers. No significant abdominal pain. Repeat CT scan did not show any significant intra-abdominal findings. She did have a bowel movement. No new positive culture results -Blood cultures pending -Continue IV vancomycin and meropenem and levofloxacin (anticipate de- escalation tomorrow) -Postoperative care as per Dr. Bee -Continue TPN HYPOXIA-likely secondary to fluid overload with bilateral pleural effusions and atelectasis noted on CT scan. No evidence for pulmonary embolism. -Furosemide 40 mg x 1 this morning and reassess this afternoon -Reassess fluid status in a.m. Jonathon Valerio MD
[2019-09-17] MEDS ORDERED: Furosemide 40 MG/4 ML VIAL IVPUSH ONE (11:00)
[2019-09-17] MEDS ORDERED: Central Total Parenteral Nutrition Bag SCH (11:30)
[2019-09-17] MEDS: Levofloxacin/Dextrose 5%-Water 750 MG in Premix Bag 1 BAG IV SCH (12:55)
--- NOTE | 2019-09-17 13:04 | PN ---
DATE OF SERVICE: 09/17/2019 SUBJECTIVE: The patient continues to slowly improve. No nausea, vomiting, shortness of breath, or chest pain. She is tolerating diet, her small amount of liquid and is having bowel movements. OBJECTIVE: VITAL SIGNS: Vital signs are stable. CARDIOVASCULAR: Regular rhythm and rate. RESPIRATORY: Lungs are clear to auscultation bilaterally. ABDOMEN: Incision healing well. ASSESSMENT: Status post small bowel resection. PLAN: 1. Infectious Disease. Continue to work with the hospitalist service. The patient is on multiple antibiotics and the white blood cell count appears rested at this time. We will wait effects of current antibiotics. Hospitalist was concerned that this was related to a pneumonia, which soon could be improving. 2. Fluid, electrolyte, nutrition. Hospitalist continues to run the TPN. We will advance diet today as the patient is having bowel movements. Continue TPN today. 3. For prophylaxis, the patient remains on Lovenox. 4. Activity. Continue to work on ambulation. William Bee MD /[id number]
[2019-09-17] MEDS: Fat Emulsion 100 ML IV SCH (15:04)
[2019-09-18] MEDS: Meropenem 1 GM in Sodium Chloride 0.9% 100 ML IV SCH (01:36)
[2019-09-18] MEDS: Enoxaparin 40 MG/0.4 ML Syringe SUBCUT SCH (08:02)
[2019-09-18] MEDS: Lactobacillus Rhamnosus GG (Probiotic) Cap PO SCH ×2 (08:02→21:26)
[2019-09-18] MEDS ORDERED: fentaNYL 100 MCG/2 ML SDV IVPUSH PRN (08:12)
--- NOTE | 2019-09-18 08:44 | PN ---
DATE OF SERVICE: 09/18/2019 SUBJECTIVE: The patient continues to improve. She has no nausea, vomiting, shortness of breath, or chest pain. Having multiple bowel movements. OBJECTIVE: VITAL SIGNS: Stable. She is afebrile. CARDIOVASCULAR: Regular rhythm and rate. RESPIRATORY: Lungs are clear to auscultation bilaterally. SKIN: Incision healing well. ASSESSMENT: Status post small bowel resection. PLAN: 1. Infectious disease: She is on multiple antibiotics and her white blood cell count remains stable. We will continue to have hospitalist work on the antibiotics at this time. 2. Fluids, electrolyte, nutrition: We will saline lock her. Stop her TPN today. 3. Diet: We will advance the patient's diet to regular diet. 4. Pain management: We will stop her ORDER CLERK today, switch to p.o. pain medications with fentanyl as a backup. 5. Prophylaxis. She remains on Lovenox. William Bee MD /[id number]
[2019-09-18] MEDS: Furosemide 40 MG/4 ML VIAL IVPUSH SCH ×2 (09:19→16:08)
[2019-09-18] MEDS: cefTRIAXone 1 GM in Sodium Chloride 0.9% 50 ML IV SCH (09:22)
[2019-09-18] MEDS: Acetaminophen/HYDROcodone 325-5 MG Tab PO PRN ×3 (09:55→18:26)
[2019-09-18] MEDS: Doxycycline 100 MG in Sodium Chloride 0.9% 100 ML IV SCH ×2 (09:57→21:26)
--- NOTE | 2019-09-18 11:00 | PCM.CONSN ---
- General Info Date of Service: 09/18/19 Subjective Update: There were no acute events overnight. Vital signs have been stable. She had a good response to the diuretic but because of all of her IV fluids remained net neutral yesterday. She feels a little less short of breath today. She feels less edematous today. No significant abdominal pain or nausea. She has been tolerating full liquids. White count is stable. No fevers. Functional Status: Reports: Pain Controlled, Tolerating Diet - Review of Systems General: Denies: Fever Gastrointestinal: Denies: Abdominal Pain - Patient Data Vitals - Most Recent: Last Vital Signs Temp 36.0 C L 09/18/19 07:55 Pulse 83 09/18/19 07:55 Resp 16 09/18/19 07:55 BP 101/68 09/18/19 07:00 Pulse Ox 96 09/18/19 07:55 Weight - Most Recent: 55.656 kg I&O - Last 24 Hours: Intake & Output 09/17/19 09/18/19 09/18/19 22:59 06:59 14:59 Intake Total 2805 1747 30 Output Total 4303 646 4159 Balance 930 857 -1570 Lab Results Last 24 Hours: Laboratory Results - last 24 hr 09/18/19 09/18/19 Range/Units 06:43 06:43 WBC 22.6 H (4.5-11.0) K/uL RBC 3.08 L (3.30-5.50) M/uL Hgb 9.5 L (12.0-15.0) g/dL Hct 28.0 L (36.0-48.0) % MCV 91 (80-98) fL MCH 31 (27-31) pg MCHC 34 (32-36) % Plt Count 343 (150-400) K/uL Sodium 136 L (140-148) mmol/L Potassium 4.4 (3.6-5.2) mmol/L Chloride 101 (100-108) mmol/L Carbon Dioxide 32 (21-32) mmol/L Anion Gap 7.4 (5.0-14.0) mmol/L BUN 15 (7-18) mg/dL Creatinine 0.3 L (0.6-1.0) mg/dL Est Cr Clr Drug Dosing 159.88 mL/min Estimated GFR (MDRD) > 60 (>60) Glucose 108 H (74-106) mg/dL Calcium 7.4 L (8.5-10.1) mg/dL Phosphorus 2.7 (2.5-4.9) mg/dL Magnesium 1.9 (1.8-2.4) mg/dL Juan Results Last 24 Hours: Microbiology 09/16/19 07:05 Aerobic Blood Culture - Preliminary Blood - Picc Line NO GROWTH AFTER 2 DAYS Anaerobic Blood Culture - Preliminary NO GROWTH AFTER 2 DAYS 09/16/19 07:20 Aerobic Blood Culture - Preliminary Blood - Arm, Left NO GROWTH AFTER 2 DAYS Anaerobic Blood Culture - Preliminary NO GROWTH AFTER 2 DAYS Med Orders - Current: Current Medications Hydrocodone Bitart/Acetaminophen (Malone 325-5 Mg) 1 - 2 tab PO Q4H PRN PRN Reason: mild to mod (1-6) Abd Pain Last Admin: 09/18/19 09:55 Dose: 2 tab Benzocaine/Menthol (Cepacol Sore Throat) 1 lozenge MUCMEM Q1H PRN PRN Reason: Sore Throat Diphenhydramine HCl (Benadryl) 50 mg IVPUSH Q4H PRN PRN Reason: Itching Enoxaparin Sodium (Lovenox) 40 mg SUBCUT DAILY [facility] Last Admin: 09/18/19 08:02 Dose: 40 mg Fentanyl (Sublimaze) 10 - 30 mcg IVPUSH Q1H PRN PRN Reason: Pain (severe 7-10) Furosemide (Lasix) 40 mg IVPUSH Q8H [facility] Stop: 09/18/19 16:31 Last Admin: 09/18/19 09:19 Dose: 40 mg Sodium Chloride (Normal Saline) 1,000 mls @ 30 mls/hr IV ASDIRECTED [facility] Last Admin: 09/15/19 23:44 Dose: 30 mls/hr Ceftriaxone Sodium 1 gm/ (Sodium Chloride) 50 mls @ 100 mls/hr IV Q24H [facility] Last Admin: 09/18/19 09:22 Dose: 100 mls/hr Doxycycline Hyclate 100 mg/ (Sodium Chloride) 100 mls @ 100 mls/hr IV Q12H [facility] Last Admin: 09/18/19 09:57 Dose: 100 mls/hr Lactobacillus Rhamnosus (Culturelle) 1 cap PO BID [facility] Last Admin: 09/18/19 08:02 Dose: 1 cap Naloxone HCl (Narcan) 0.4 mg IVPUSH Q2M PRN PRN Reason: Respiratory Distress Zolmitriptan 5mg (Ptom) 0 each PO ASDIRECTED PRN PRN Reason: MIGRAINES Last Admin: 09/16/19 05:12 Dose: 1 each Sodium Chloride (Saline Flush) 10 ml FLUSH ASDIRECTED PRN PRN Reason: Keep Vein Open Last Admin: 09/12/19 17:03 Dose: 10 ml Zolpidem Tartrate (Ambien) 5 mg PO BEDTIME PRN PRN Reason: Insomnia Discontinued Medications Bupivacaine HCl/Epinephrine Bitart (Marcaine 0.5%/Epinephrine 1:200,000) Confirm Administered Dose 50 ml .ROUTE .STK-MED ONE Stop: 09/12/19 19:44 Last Admin: 09/12/19 21:10 Dose: 35 ml Dexamethasone (Dexamethasone) Confirm Administered Dose 4 mg .ROUTE .STK-MED ONE Stop: 09/12/19 19:50 Dexamethasone (Dexamethasone) Confirm Administered Dose 8 mg .ROUTE .STK-MED ONE Stop: 09/12/19 19:55 Epinephrine HCl (Adrenalin) Confirm Administered Dose 1 mg .ROUTE .STK-MED ONE Stop: 09/12/19 19:55 Fentanyl (Sublimaze) 50 mcg IVPUSH ONETIME ONE Stop: 09/12/19 16:49 Last Admin: 09/12/19 17:01 Dose: 50 mcg Fentanyl (Sublimaze) Confirm Administered Dose 250 mcg .ROUTE .STK-MED ONE Stop: 09/12/19 19:51 Furosemide (Lasix) 10 mg IVPUSH ONETIME ONE Stop: 09/15/19 16:55 Last Admin: 09/15/19 18:05 Dose: 10 mg Furosemide (Lasix) Confirm Administered Dose 20 mg .ROUTE .STK-MED ONE Stop: 09/15/19 18:03 Last Admin: 09/15/19 18:06 Dose: Not Given Furosemide (Lasix) 10 mg IVPUSH ONETIME ONE Stop: 09/15/19 20:31 Last Admin: 09/15/19 21:33 Dose: 10 mg Furosemide (Lasix) 10 mg IVPUSH ONETIME ONE Stop: 09/16/19 15:31 Last Admin: 04/19/20 15:24 Dose: 10 mg Furosemide (Lasix) 40 mg IVPUSH ONETIME ONE Stop: 09/17/19 11:01 Last Admin: 09/17/19 12:52 Dose: 40 mg Glycopyrrolate (Robinul) Confirm Administered Dose 1 mg .ROUTE .STK-MED ONE Stop: 09/12/19 19:50 Hydromorphone HCl (Dilaudid) Confirm Administered Dose 0.5 mg .ROUTE .ST-MED ONE Stop: 09/12/19 21:56 Last Admin: 09/12/19 22:11 Dose: Not Given Hydromorphone HCl (Dilaudid) 0.5 mg IVPUSH ONETIME ONE Stop: 09/12/19 22:03 Last Admin: 09/12/19 22:12 Dose: 0.5 mg Hydromorphone HCl (Dilaudid) 0.5 mg IVPUSH ONETIME ONE Stop: 09/12/19 22:09 Last Admin: 09/12/19 22:32 Dose: Not Given Hydromorphone HCl (Dilaudid Manager [place] 15 Mg In Ns 30 Ml) 0 mg IV ASDIRECTED PRN; Protocol PRN Reason: Pain Last Admin: 09/16/19 15:20 Dose: 15 mg Hydroxyzine HCl (Vistaril) 100 mg IM Q4H PRN PRN Reason: Nausea Lactated Ringer's (Ringers, Lactated) 1,000 mls @ 999 mls/hr IV ASDIRECTED [facility] Last Admin: 09/12/19 17:04 Dose: 999 mls/hr Piperacillin Sod/Tazobactam (Sod 4.5 gm/ Sodium Chloride) 100 mls @ 100 mls/hr IV ONETIME ONE Stop: 09/12/19 20:13 Last Admin: 09/12/19 19:29 Dose: 100 mls/hr Sodium Chloride (Normal Saline) Confirm Administered Dose 500 mls @ as directed .ROUTE .ST-MED ONE Stop: 09/12/19 20:05 Piperacillin Sod/Tazobactam (Sod 4.5 gm/ Sodium Chloride) 100 mls @ 100 mls/hr IV Q6H [facility] Last Admin: 09/13/19 02:05 Dose: 100 mls/hr Sodium Chloride (Normal Saline) 250 mls @ 250 mls/hr IV ONETIME ONE Stop: 09/13/19 03:29 Last Admin: 09/13/19 02:39 Dose: 250 mls/hr Sodium Chloride (Normal Saline) 250 mls @ 250 mls/hr IV ONETIME ONE Stop: 09/13/19 06:30 Last Admin: 09/13/19 05:30 Dose: 250 mls/hr Piperacillin/Tazobactam/ (Dextrose 4.5 gm/ Premix) 100 mls @ 200 mls/hr IV Q6H [facility] Last Admin: 09/13/19 08:16 Dose: 200 mls/hr Meropenem 1 gm/ Sodium (Chloride) 100 mls @ 200 mls/hr IV Q8H [facility] Last Admin: 09/18/19 01:36 Dose: 200 mls/hr Meropenem 1 gm/ Sodium (Chloride) 100 mls @ 200 mls/hr IV ONETIME ONE Stop: 09/13/19 11:29 Last Admin: 09/13/19 11:18 Dose: 200 mls/hr Multivitamins/Minerals 10 ml/Chromium/Copper/Manganese/Seleni/Zn 1 ml/ Amino Ac/ Electrol/Dextrose/Calcium 1,011 mls @ 70 mls/hr IV .BY DURATION [facility] Stop: 09/14/19 16:20 Last Admin: 09/13/19 15:53 Dose: 70 mls/hr Amino Ac/Electrol/Dextrose/Calcium (Clinimix E 5/15) 1,000 mls @ 70 mls/hr IV .BY DURATION [facility] Stop: 09/14/19 16:20 Last Admin: 09/14/19 07:43 Dose: 70 mls/hr Fat Emulsion Intravenous (Intralipid 20%) 100 mls @ 8.3 mls/hr IV Q24H [facility] Last Admin: 09/17/19 15:04 Dose: 8.3 mls/hr Multivitamins/Minerals 10 ml/Chromium/Copper/Manganese/Seleni/Zn 1 ml/ Amino Ac/ Electrol/Dextrose/Calcium 1,011 mls @ 70 mls/hr IV .BY DURATION [facility] Stop: 09/15/19 20:00 Last Admin: 09/14/19 17:15 Dose: 70 mls/hr Amino Ac/Electrol/Dextrose/Calcium (Clinimix E 5/15) 1,000 mls @ 70 mls/hr IV .BY DURATION [facility] Stop: 09/15/19 20:00 Last Admin: 09/15/19 09:13 Dose: 70 mls/hr Multivitamins/Minerals 10 ml/Chromium/Copper/Manganese/Seleni/Zn 1 ml/ Amino Ac/ Electrol/Dextrose/Calcium 1,011 mls @ 70 mls/hr IV .BY DURATION [facility] Stop: 09/16/19 13:30 Last Admin: 09/15/19 23:44 Dose: 70 mls/hr Amino Ac/Electrol/Dextrose/Calcium (Clinimix E 5/15) 1,000 mls @ 70 mls/hr IV .BY DURATION [facility] Stop: 09/16/19 13:30 Vancomycin HCl 0.75 gm/ Sodium (Chloride) 250 mls @ 166.667 mls/hr IV Q12H [facility] Last Admin: 09/15/19 22:13 Dose: 166.667 mls/hr Vancomycin HCl 1 gm/ Sodium (Chloride) 250 mls @ 166.667 mls/hr IV Q12H [facility] Last Admin: 09/17/19 21:25 Dose: 166.667 mls/hr Levofloxacin/Dextrose 750 mg/ (Premix) 150 mls @ 100 mls/hr IV Q24H [facility] Last Admin: 09/17/19 12:55 Dose: 100 mls/hr Multivitamins/Minerals 10 ml/Chromium/Copper/Manganese/Seleni/Zn 1 ml/ Amino Ac/ Electrol/Dextrose/Calcium 1,011 mls @ 70 mls/hr IV .BY DURATION [facility] Last Admin: 09/17/19 19:14 Dose: 70 mls/hr Amino Ac/Electrol/Dextrose/Calcium (Clinimix E 5/15) 1,000 mls @ 70 mls/hr IV .BY DURATION [facility] Last Admin: 09/17/19 04:39 Dose: 70 mls/hr Sodium Chloride (Normal Saline) 100 mls @ 3.5 mls/sec IV ASDIRECTED [facility] Stop: 09/16/19 12:31 Last Admin: 09/16/19 13:06 Dose: 4 mls/sec Levofloxacin/Dextrose 750 mg/ (Premix) 150 mls @ 100 mls/hr IV Q24H [facility] Iohexol (Omnipaque-300) 50 ml PO .ASDIRECTED [facility] Stop: 09/15/19 14:01 Iohexol (Omnipaque) Confirm Administered Dose 30 ml .ROUTE .STK-MED ONE Stop: 09/15/19 14:50 Last Admin: 09/15/19 14:55 Dose: 30 ml Iopamidol (Isovue-370 (76%)) 100 ml IV . DIRECTED [facility] Stop: 09/16/19 12:31 Last Admin: 09/16/19 13:06 Dose: 100 ml Ketorolac Tromethamine (Toradol) Confirm Administered Dose 60 mg .ROUTE .STK- MED ONE Stop: 09/12/19 21:12 Meropenem (Merrem) Confirm Administered Dose 500 mg .ROUTE .STK-MED ONE Stop: 09/12/19 20:43 Last Admin: 09/12/19 20:45 Dose: 500 mg Morphine Sulfate (Morphine Manager Rail 150 Mg In 30 Ml) 0 mg IV ASDIRECTED PRN; Protocol PRN Reason: Pain Naloxone HCl (Narcan) 0.1 mg IV ASDIRECTED PRN PRN Reason: decreased respiratory rate Stop: 09/13/19 00:04 Neostigmine Methylsulfate (Neostigmine) Confirm Administered Dose 5 mg .ROUTE .STK-MED ONE Stop: 09/12/19 19:50 Non-Formulary Medication (Total Parenteral Nutrition, Central) 0 ml IV ONETIME [facility] Stop: 09/14/19 14:00 Non-Formulary Medication (Total Parenteral Nutrition, Central) 1,000 ml .XX .Continue Order [facility]; Protocol Stop: 09/17/19 16:00 Ondansetron HCl (Zofran) 4 mg IVPUSH ONETIME ONE Stop: 09/12/19 16:50 Last Admin: 09/12/19 16:59 Dose: 4 mg Ondansetron HCl (Zofran) Confirm Administered Dose 4 mg .ROUTE .STK-MED ONE Stop: 09/12/19 19:50 Propofol (Diprivan 20 Ml) Confirm Administered Dose 200 mg .ROUTE .STK-MED ONE Stop: 09/12/19 19:50 Rocuronium [place] (Zemuron) Confirm Administered Dose 50 mg .ROUTE .STK-MED ONE Stop: 09/12/19 19:50 Ropivacaine (Naropin 0.5%) 30 ml .ROUTE .STK-MED ONE Stop: 09/12/19 19:55 Sodium Chloride (Saline Flush) 10 ml FLUSH ONETIME ONE Stop: 09/16/19 12:29 Last Admin: 09/16/19 13:06 Dose: 10 ml Succinylcholine Chloride (Quelicin) Confirm Administered Dose 200 mg .ROUTE .STK -MED ONE Stop: 09/12/19 19:50 Vancomycin HCl (Vancomycin) 1 gm IV .PHARMACY TO DOSE [facility] Stop: 09/16/19 08:00 - Exam Quality Assessment: Supplemental Oxygen General: Alert, Oriented, Cooperative, No Acute Distress Lungs: Normal Respiratory Effort, Decreased Breath Sounds (both bases). No: Crackles, Wheezing Cardiovascular: Regular Rate, Regular Rhythm GI/Abdominal Exam: Soft, No Distention Extremities: Pedal Edema. No: Increased Warmth Psy/Mental Status: Alert, Normal Affect Sepsis Event Note - Evaluation Sepsis Screening Result: No Definite Risk - Focused Exam Vital Signs: Vital Signs Temp Pulse Resp BP Pulse Ox 09/18/19 07:55 36.0 C L 83 16 96 09/18/19 07:00 36.3 C 107 H 18 101/68 94 L 09/18/19 06:49 94 L 09/18/19 02:45 36.4 C 103 H 18 112/63 91 L 09/18/19 01:00 93 L Date Exam was Performed: 09/18/19 Time Exam was Performed: 14:38 Consult PN Assessment/Plan Procedures: Procedures ASSAY OF LACTIC ACID (09/01/19) ASSAY OF LIPASE (09/01/19) ASSAY OF VANCOMYCIN (09/01/19) ASSAY THYROID STIM HORMONE (09/01/19) COMPLETE CBC AUTOMATED (09/01/19) COMPLETE CBC W/AUTO DIFF WBC (09/01/19) COMPREHEN METABOLIC PANEL (09/01/19) CT ABD & PELV W/CONTRAST (09/01/19) CT ABD & PELVIS W/O CONTRAST (08/11/19) CULTR BACTERIA EXCEPT BLOOD (08/11/19) CULTURE AEROBIC IDENTIFY (09/01/19) CULTURE OTHR SPECIMN AEROBIC (09/01/19) EMERGENCY DEPT VISIT (09/01/19) EMERGENCY DEPT VISIT (09/01/19) EMERGENCY DEPT VISIT (08/11/19) EMERGENCY DEPT VISIT (08/11/19) HYDRATE IV INFUSION ADD-ON (09/01/19) METABOLIC PANEL TOTAL CA (09/01/19) MICROBE SUSCEPTIBLE JUAN (09/01/19) REMOVAL OF SMALL INTESTINE (09/01/19) ROUTINE VENIPUNCTURE (09/01/19) SMEAR GRAM STAIN (09/01/19) THER/PROPH/DIAG INJ IV PUSH (09/01/19) TISSUE EXAM BY PATHOLOGIST (09/01/19) TX/PRO/DX INJ NEW DRUG ADDON (09/01/19) URINALYSIS AUTO W/SCOPE (09/01/19) WITHDRAWAL OF ARTERIAL BLOOD (08/11/19) X-RAY EXAM ABDOMEN 1 VIEW (09/01/19) X-RAY EXAM ABDOMEN 2 VIEWS (08/11/19) X-RAY EXAM CHEST 2 VIEWS (09/01/19) Problem List Initiated/Reviewed/Updated: Yes My Orders Last 24 Hours: My Active Orders 09/17/19 10:51 Antiembolic Devices [RC] .Routine ROSALIE Hose [Antiembolic Hose] [OM.PC] Routine 09/18/19 08:30 Furosemide [Lasix] 40 mg IVPUSH Q8H 09/18/19 08:48 PT Evaluation and Treatment [CONS] Routine 09/18/19 09:00 cefTRIAXone [Rocephin] 1 gm Sodium Chloride 0.9% [Normal Saline] 50 ml IV Q24H 09/18/19 10:00 Doxycycline [Vibramycin] 100 mg Sodium Chloride 0.9% [Normal Saline] 100 ml IV Q12H Plan: ASSESSMENT AND RECOMMENDATIONS- STATUS POST INITIAL EXPLORATORY LAPAROTOMY FOR SMALL BOWEL OBSTRUCTION-followed by recurrent surgery because of abscess development. Leukocytosis is stable and she is not having fevers. Clinically looking better. No obvious signs for new or occult infection. -Blood cultures pending -Change antibiotics to ceftriaxone and doxycycline -Postoperative care as per Dr. Bee -Continue TPN HYPOXIA-likely secondary to fluid overload with bilateral pleural effusions and atelectasis noted on CT scan. Edema is a little better today but still significant edema and some pleural effusions. -Furosemide 40 mg x 2 today -Rosalie stockings -Reassess fluid status in a.m. Jonathon Valerio MD
[2019-09-18] MEDS ORDERED: Levofloxacin/Dextrose 5%-Water 750 MG in Premix Bag 1 BAG IV SCH (13:00)
[2019-09-19] MEDS: Sodium Chloride 0.9% 1,000 ML IV SCH (00:33)
[2019-09-19] MEDS: Acetaminophen/HYDROcodone 325-5 MG Tab PO PRN ×3 (00:35→09:23)
--- NOTE | 2019-09-19 08:13 | PN ---
DATE OF SERVICE: 09/19/2019 SUBJECTIVE: The patient is doing very well. Pain is well controlled. No nausea, vomiting, shortness of breath, or chest pain. OBJECTIVE: VITAL SIGNS: Stable. Incision healing well. ASSESSMENT: Status post small bowel resection. PLAN: 1. Fluid, electrolyte, nutrition. TPN has been stopped. Dietary is seeing her. Working on adding protein to her diet. We will add some probiotics today. She is having some sudden diarrhea. Medicine Service will continue to work on fluid management. 2. Infection control. Her white blood cell count has improved slightly with new antibiotic regimen. Hospitalist Service will continue to work on this. 3. General activity. Physical Therapy is seeing her. We will work on increased activity. 4. Prophylaxis. She is to remain on Lovenox at this time. William Bee MD /[id number]
[2019-09-19] MEDS: Lactobacillus Rhamnosus GG (Probiotic) Cap PO SCH ×2 (09:22→20:00)
[2019-09-19] MEDS: Enoxaparin 40 MG/0.4 ML Syringe SUBCUT SCH (09:24)
[2019-09-19] MEDS: cefTRIAXone 1 GM in Sodium Chloride 0.9% 50 ML IV SCH (09:37)
[2019-09-19] MEDS ORDERED: Magnesium Sulfate/Water 2 GM in Premix Bag 1 BAG IV ONE (10:00)
[2019-09-19] MEDS: Doxycycline 100 MG in Sodium Chloride 0.9% 100 ML IV SCH (10:28)
--- NOTE | 2019-09-19 11:53 | PCM.CONSN ---
- General Info Date of Service: 09/19/19 Subjective Update: No acute events overnight. She does report a mild increase in her abdominal pain which is mostly in the left lower quadrant. She does not have nausea. She does have some diarrhea and has had multiple loose to watery bowel movements in the past 24 hours. She has not had any fevers. She has been tolerating her diet. She is off oxygen as of this morning. Edema is not resolved but is better. Shortness of breath is better. Functional Status: Reports: Pain Controlled, Tolerating Diet - Review of Systems General: Denies: Fever Gastrointestinal: Reports: Abdominal Pain, Diarrhea - Patient Data Vitals - Most Recent: Last Vital Signs Temp 36.2 C 09/19/19 06:58 Pulse 103 H 09/19/19 06:58 Resp 18 09/19/19 06:58 BP 113/70 09/19/19 06:58 Pulse Ox 98 09/19/19 09:41 Weight - Most Recent: 53.252 kg I&O - Last 24 Hours: Intake & Output 09/18/19 09/19/19 09/19/19 22:59 06:59 14:59 Intake Total 968 252 260 Output Total 700 350 Balance 268 -98 260 Lab Results Last 24 Hours: Laboratory Results - last 24 hr 09/19/19 09/19/19 Range/Units 06:53 06:53 WBC 21.1 H (4.5-11.0) K/uL RBC 3.11 L (3.30-5.50) M/uL Hgb 9.3 L (12.0-15.0) g/dL Hct 28.3 L (36.0-48.0) % MCV 91 (80-98) fL MCH 30 (27-31) pg MCHC 33 (32-36) % Plt Count 354 (150-400) K/uL Sodium 137 L (140-148) mmol/L Potassium 4.6 (3.6-5.2) mmol/L Chloride 101 (100-108) mmol/L Carbon Dioxide 30 (21-32) mmol/L Anion Gap 10.6 (5.0-14.0) mmol/L BUN 15 (7-18) mg/dL Creatinine 0.3 L (0.6-1.0) mg/dL Est Cr Clr Drug Dosing 152.98 mL/min Estimated GFR (MDRD) > 60 (>60) Glucose 127 H (74-106) mg/dL Calcium 7.4 L (8.5-10.1) mg/dL Phosphorus 2.4 L (2.5-4.9) mg/dL Magnesium 1.7 L (1.8-2.4) mg/dL Juan Results Last 24 Hours: Microbiology 09/16/19 07:20 Aerobic Blood Culture - Preliminary Blood - Arm, Left NO GROWTH AFTER 3 DAYS Anaerobic Blood Culture - Preliminary NO GROWTH AFTER 3 DAYS 09/16/19 07:05 Aerobic Blood Culture - Preliminary Blood - Picc Line NO GROWTH AFTER 3 DAYS Anaerobic Blood Culture - Preliminary NO GROWTH AFTER 3 DAYS Med Orders - Current: Current Medications Acetaminophen (Tylenol) 650 mg PO Q4H PRN PRN Reason: Pain/Fever Bacitracin (Bacitracin Oint) 1 gm TOP BID [facility] Benzocaine/Menthol (Cepacol Sore Throat) 1 lozenge MUCMEM Q1H PRN PRN Reason: Sore Throat Diphenhydramine HCl (Benadryl) 50 mg IVPUSH Q4H PRN PRN Reason: Itching Doxycycline Hyclate (Vibramycin) 100 mg PO BID [facility] Enoxaparin Sodium (Lovenox) 40 mg SUBCUT DAILY [facility] Last Admin: 09/19/19 09:24 Dose: 40 mg Fentanyl (Sublimaze) 10 - 30 mcg IVPUSH Q1H PRN PRN Reason: Pain (severe 7-10) Ceftriaxone Sodium 1 gm/ (Sodium Chloride) 50 mls @ 100 mls/hr IV Q24H [facility] Last Admin: 09/19/19 09:37 Dose: 100 mls/hr Magnesium Sulfate 2 gm/ Premix 50 mls @ 25 mls/hr IV ONETIME ONE Stop: 09/19/19 11:59 Last Admin: 09/19/19 11:27 Dose: 25 mls/hr Lactobacillus Rhamnosus (Culturelle) 1 cap PO BID [facility] Last Admin: 09/19/19 09:22 Dose: 1 cap Zolmitriptan 5mg (Ptom) 0 each PO ASDIRECTED PRN PRN Reason: MIGRAINES Last Admin: 09/16/19 05:12 Dose: 1 each Oxycodone HCl (Oxycodone) 5 - 10 mg PO Q4H PRN PRN Reason: Pain Sodium Chloride (Saline Flush) 10 ml FLUSH ASDIRECTED PRN PRN Reason: Keep Vein Open Last Admin: 09/12/19 17:03 Dose: 10 ml Zolpidem Tartrate (Ambien) 5 mg PO BEDTIME PRN PRN Reason: Insomnia Discontinued Medications Hydrocodone Bitart/Acetaminophen (Parsons 325-5 Mg) 1 - 2 tab PO Q4H PRN PRN Reason: mild to mod (1-6) Abd Pain Last Admin: 09/19/19 09:23 Dose: 2 tab Bupivacaine HCl/Epinephrine Bitart (Marcaine 0.5%/Epinephrine 1:200,000) Confirm Administered Dose 50 ml .ROUTE .STK-MED ONE Stop: 09/12/19 19:44 Last Admin: 09/12/19 21:10 Dose: 35 ml Dexamethasone (Dexamethasone) Confirm Administered Dose 4 mg .ROUTE .STK-MED ONE Stop: 09/12/19 19:50 Dexamethasone (Dexamethasone) Confirm Administered Dose 8 mg .ROUTE .STK-MED ONE Stop: 09/12/19 19:55 Epinephrine HCl (Adrenalin) Confirm Administered Dose 1 mg .ROUTE .STK-MED ONE Stop: 09/12/19 19:55 Fentanyl (Sublimaze) 50 mcg IVPUSH ONETIME ONE Stop: 09/12/19 16:49 Last Admin: 09/12/19 17:01 Dose: 50 mcg Fentanyl (Sublimaze) Confirm Administered Dose 250 mcg .ROUTE .STK-MED ONE Stop: 09/12/19 19:51 Furosemide (Lasix) 10 mg IVPUSH ONETIME ONE Stop: 09/15/19 16:55 Last Admin: 09/15/19 18:05 Dose: 10 mg Furosemide (Lasix) Confirm Administered Dose 20 mg .ROUTE .STK-MED ONE Stop: 09/15/19 18:03 Last Admin: 09/15/19 18:06 Dose: Not Given Furosemide (Lasix) 10 mg IVPUSH ONETIME ONE Stop: 09/15/19 20:31 Last Admin: 09/15/19 21:33 Dose: 10 mg Furosemide (Lasix) 10 mg IVPUSH ONETIME ONE Stop: 09/16/19 15:31 Last Admin: 09/16/19 15:24 Dose: 10 mg Furosemide (Lasix) 40 mg IVPUSH ONETIME ONE Stop: 09/17/19 11:01 Last Admin: 09/17/19 12:52 Dose: 40 mg Furosemide (Lasix) 40 mg IVPUSH Q8H [facility] Stop: 09/18/19 16:31 Last Admin: 09/18/19 16:08 Dose: 40 mg Glycopyrrolate (Robinul) Confirm Administered Dose 1 mg .ROUTE .STK-MED ONE Stop: 09/12/19 19:50 Hydromorphone HCl (Dilaudid) Confirm Administered Dose 0.5 mg .ROUTE .STK-MED ONE Stop: 09/12/19 21:56 Last Admin: 09/12/19 22:11 Dose: Not Given Hydromorphone HCl (Dilaudid) 0.5 mg IVPUSH ONETIME ONE Stop: 09/12/19 22:03 Last Admin: 09/12/19 22:12 Dose: 0.5 mg Hydromorphone HCl (Dilaudid) 0.5 mg IVPUSH ONETIME ONE Stop: 09/12/19 22:09 Last Admin: 09/12/19 22:32 Dose: Not Given Hydromorphone HCl (Dilaudid Edge Baster 15 Mg In Ns 30 Ml) 0 mg IV ASDIRECTED PRN; Protocol PRN Reason: Pain Last Admin: 09/16/19 15:20 Dose: 15 mg Hydroxyzine HCl (Vistaril) 100 mg IM Q4H PRN PRN Reason: Nausea Lactated Ringer's (Ringers, Lactated) 1,000 mls @ 999 mls/hr IV ASDIRECTED [facility] Last Admin: 09/12/19 17:04 Dose: 999 mls/hr Piperacillin Sod/Tazobactam (Sod 4.5 gm/ Sodium Chloride) 100 mls @ 100 mls/hr IV ONETIME ONE Stop: 09/12/19 20:13 Last Admin: 09/12/19 19:29 Dose: 100 mls/hr Sodium Chloride (Normal Saline) 1,000 mls @ 30 mls/hr IV ASDIRECTED [facility] Last Admin: 09/19/19 00:33 Dose: 30 mls/hr Sodium Chloride (Normal Saline) Confirm Administered Dose 500 mls @ as directed .ROUTE .STK-MED ONE Stop: 09/12/19 20:05 Piperacillin Sod/Tazobactam (Sod 4.5 gm/ Sodium Chloride) 100 mls @ 100 mls/hr IV Q6H [facility] Last Admin: 09/13/19 02:05 Dose: 100 mls/hr Sodium Chloride (Normal Saline) 250 mls @ 250 mls/hr IV ONETIME ONE Stop: 09/13/19 03:29 Last Admin: 09/13/19 02:39 Dose: 250 mls/hr Sodium Chloride (Normal Saline) 250 mls @ 250 mls/hr IV ONETIME ONE Stop: 09/13/19 06:30 Last Admin: 09/13/19 05:30 Dose: 250 mls/hr Piperacillin/Tazobactam/ (Dextrose 4.5 gm/ Premix) 100 mls @ 200 mls/hr IV Q6H [facility] Last Admin: 09/13/19 08:16 Dose: 200 mls/hr Meropenem 1 gm/ Sodium (Chloride) 100 mls @ 200 mls/hr IV Q8H [facility] Last Admin: 09/18/19 01:36 Dose: 200 mls/hr Meropenem 1 gm/ Sodium (Chloride) 100 mls @ 200 mls/hr IV ONETIME ONE Stop: 09/13/19 11:29 Last Admin: 09/13/19 11:18 Dose: 200 mls/hr Multivitamins/Minerals 10 ml/Chromium/Copper/Manganese/Seleni/Zn 1 ml/ Amino Ac/ Electrol/Dextrose/Calcium 1,011 mls @ 70 mls/hr IV .BY DURATION [facility] Stop: 09/14/19 16:20 Last Admin: 09/13/19 15:53 Dose: 70 mls/hr Amino Ac/Electrol/Dextrose/Calcium (Clinimix E 10/11) 1,000 mls @ 70 mls/hr IV .BY DURATION [facility] Stop: 09/14/19 16:20 Last Admin: 09/14/19 07:43 Dose: 70 mls/hr Fat Emulsion Intravenous (Intralipid 20%) 100 mls @ 8.3 mls/hr IV Q24H [facility] Last Admin: 09/17/19 15:04 Dose: 8.3 mls/hr Multivitamins/Minerals 10 ml/Chromium/Copper/Manganese/Seleni/Zn 1 ml/ Amino Ac/ Electrol/Dextrose/Calcium 1,011 mls @ 70 mls/hr IV .BY DURATION [facility] Stop: 09/15/19 20:00 Last Admin: 09/14/19 17:15 Dose: 70 mls/hr Amino Ac/Electrol/Dextrose/Calcium (Clinimix E 5/15) 1,000 mls @ 70 mls/hr IV .BY DURATION [facility] Stop: 09/15/19 20:00 Last Admin: 09/15/19 09:13 Dose: 70 mls/hr Multivitamins/Minerals 10 ml/Chromium/Copper/Manganese/Seleni/Zn 1 ml/ Amino Ac/ Electrol/Dextrose/Calcium 1,011 mls @ 70 mls/hr IV .BY DURATION [facility] Stop: 09/16/19 13:30 Last Admin: 09/15/19 23:44 Dose: 70 mls/hr Amino Ac/Electrol/Dextrose/Calcium (Clinimix E 5/15) 1,000 mls @ 70 mls/hr IV .BY DURATION [facility] Stop: 09/16/19 13:30 Vancomycin HCl 0.75 gm/ Sodium (Chloride) 250 mls @ 166.667 mls/hr IV Q12H [facility] Last Admin: 09/15/19 22:13 Dose: 166.667 mls/hr Vancomycin HCl 1 gm/ Sodium (Chloride) 250 mls @ 166.667 mls/hr IV Q12H [facility] Last Admin: 09/17/19 21:25 Dose: 166.667 mls/hr Levofloxacin/Dextrose 750 mg/ (Premix) 150 mls @ 100 mls/hr IV Q24H [facility] Last Admin: 09/17/19 12:55 Dose: 100 mls/hr Multivitamins/Minerals 10 ml/Chromium/Copper/Manganese/Seleni/Zn 1 ml/ Amino Ac/ Electrol/Dextrose/Calcium 1,011 mls @ 70 mls/hr IV .BY DURATION [facility] Last Admin: 09/17/19 19:14 Dose: 70 mls/hr Amino Ac/Electrol/Dextrose/Calcium (Clinimix E 5/15) 1,000 mls @ 70 mls/hr IV .BY DURATION [facility] Last Admin: 09/17/19 04:39 Dose: 70 mls/hr Sodium Chloride (Normal Saline) 100 mls @ 3.5 mls/sec IV ASDIRECTED [facility] Stop: 09/16/19 12:31 Last Admin: 09/16/19 13:06 Dose: 4 mls/sec Levofloxacin/Dextrose 750 mg/ (Premix) 150 mls @ 100 mls/hr IV Q24H [facility] Doxycycline Hyclate 100 mg/ (Sodium Chloride) 100 mls @ 100 mls/hr IV Q12H [facility] Last Admin: 09/19/19 10:28 Dose: 100 mls/hr Iohexol (Omnipaque-300) 50 ml PO .ASDIRECTED [facility] Stop: 09/15/19 14:01 Iohexol (Omnipaque) Confirm Administered Dose 30 ml .ROUTE .STK-MED ONE Stop: 09/15/19 14:50 Last Admin: 09/15/19 14:55 Dose: 30 ml Iopamidol (Isovue-370 (76%)) 100 ml IV . DIRECTED [facility] Stop: 09/16/19 12:31 Last Admin: 09/16/19 13:06 Dose: 100 ml Ketorolac Tromethamine (Toradol) Confirm Administered Dose 60 mg .ROUTE .STK- MED ONE Stop: 09/12/19 21:12 Meropenem (Merrem) Confirm Administered Dose 500 mg .ROUTE .STK-MED ONE Stop: 09/12/19 20:43 Last Admin: 09/12/19 20:45 Dose: 500 mg Morphine Sulfate (Morphine Edge Baster 150 Mg In 30 Ml) 0 mg IV ASDIRECTED PRN; Protocol PRN Reason: Pain Naloxone HCl (Narcan) 0.1 mg IV ASDIRECTED PRN PRN Reason: decreased respiratory rate Stop: 09/13/19 00:04 Naloxone HCl (Narcan) 0.4 mg IVPUSH Q2M PRN PRN Reason: Respiratory Distress Neostigmine Methylsulfate (Neostigmine) Confirm Administered Dose 5 mg .ROUTE .STK-MED ONE Stop: 09/12/19 19:50 Non-Formulary Medication (Total Parenteral Nutrition, Central) 0 ml IV ONETIME [facility] Stop: 09/14/19 14:00 Non-Formulary Medication (Total Parenteral Nutrition, Central) 1,000 ml .XX .Continue Order [facility]; Protocol Stop: 09/17/19 16:00 Ondansetron HCl (Zofran) 4 mg IVPUSH ONETIME ONE Stop: 09/12/19 16:50 Last Admin: 09/12/19 16:59 Dose: 4 mg Ondansetron HCl (Zofran) Confirm Administered Dose 4 mg .ROUTE .STK-MED ONE Stop: 09/12/19 19:50 Propofol (Diprivan 20 Ml) Confirm Administered Dose 200 mg .ROUTE .STK-MED ONE Stop: 09/12/19 19:50 Rocuronium [place] (Zemuron) Confirm Administered Dose 50 mg .ROUTE .STK-MED ONE Stop: 09/12/19 19:50 Ropivacaine (Naropin 0.5%) 30 ml .ROUTE .STK-MED ONE Stop: 09/12/19 19:55 Sodium Chloride (Saline Flush) 10 ml FLUSH ONETIME ONE Stop: 09/16/19 12:29 Last Admin: 09/16/19 13:06 Dose: 10 ml Succinylcholine Chloride (Quelicin) Confirm Administered Dose 200 mg .ROUTE .STK -MED ONE Stop: 09/12/19 19:50 Vancomycin HCl (Vancomycin) 1 gm IV .PHARMACY TO DOSE [facility] Stop: 09/16/19 08:00 - Exam Quality Assessment: No: Supplemental Oxygen General: Alert, Oriented, Cooperative, No Acute Distress Lungs: Normal Respiratory Effort Cardiovascular: Regular Rhythm, Tachycardia GI/Abdominal Exam: Soft, No Distention, Tender (LLQ) Extremities: Pedal Edema Wound/Incisions: Erythema (mild around most inferior LLQ RONY drain ) Psy/Mental Status: Alert, Normal Affect Sepsis Event Note - Evaluation Sepsis Screening Result: Severe Sepsis Risk - Focused Exam Vital Signs: Vital Signs Temp Pulse Resp BP Pulse Ox Pulse Ox 09/19/19 09:41 98 09/19/19 09:00 98 09/19/19 06:58 36.2 C 103 H 18 113/70 98 09/19/19 02:01 35.5 C L 101 H 16 100/65 98 Date Exam was Performed: 09/19/19 Time Exam was Performed: 13:17 Consult PN Assessment/Plan Procedures: Procedures ASSAY OF LACTIC ACID (09/01/19) ASSAY OF LIPASE (09/01/19) ASSAY OF VANCOMYCIN (09/01/19) ASSAY THYROID STIM HORMONE (09/01/19) COMPLETE CBC AUTOMATED (09/01/19) COMPLETE CBC W/AUTO DIFF WBC (09/01/19) COMPREHEN METABOLIC PANEL (09/01/19) CT ABD & PELV W/CONTRAST (09/01/19) CT ABD & PELVIS W/O CONTRAST (08/11/19) CULTR BACTERIA EXCEPT BLOOD (08/11/19) CULTURE AEROBIC IDENTIFY (09/01/19) CULTURE OTHR SPECIMN AEROBIC (09/01/19) EMERGENCY DEPT VISIT (09/01/19) EMERGENCY DEPT VISIT (09/01/19) EMERGENCY DEPT VISIT (08/11/19) EMERGENCY DEPT VISIT (08/11/19) HYDRATE IV INFUSION ADD-ON (09/01/19) METABOLIC PANEL TOTAL CA (09/01/19) MICROBE SUSCEPTIBLE JUAN (09/01/19) REMOVAL OF SMALL INTESTINE (09/01/19) ROUTINE VENIPUNCTURE (09/01/19) SMEAR GRAM STAIN (09/01/19) THER/PROPH/DIAG INJ IV PUSH (09/01/19) TISSUE EXAM BY PATHOLOGIST (09/01/19) TX/PRO/DX INJ NEW DRUG ADDON (09/01/19) URINALYSIS AUTO W/SCOPE (09/01/19) WITHDRAWAL OF ARTERIAL BLOOD (08/11/19) X-RAY EXAM ABDOMEN 1 VIEW (09/01/19) X-RAY EXAM ABDOMEN 2 VIEWS (08/11/19) X-RAY EXAM CHEST 2 VIEWS (09/01/19) Problem List Initiated/Reviewed/Updated: Yes My Orders Last 24 Hours: My Active Orders 09/19/19 10:00 Magnesium Sulfate/Water [Magnesium Sulfate in Water Premix] 2 gm Premix Bag 1 bag IV ONETIME 09/19/19 11:24 C Diff [CLOS DIFFICILE PCR W/REFLEX] [RM] Routine 09/19/19 11:51 Acetaminophen [Tylenol] 650 mg PO Q4H PRN oxyCODONE 5 - 10 mg PO Q4H PRN 09/19/19 12:00 Bacitracin [Bacitracin Oint] 1 gm TOP BID 09/19/19 21:00 Doxycycline [Vibramycin] 100 mg PO BID Plan: ASSESSMENT AND RECOMMENDATIONS- STATUS POST INITIAL EXPLORATORY LAPAROTOMY FOR SMALL BOWEL OBSTRUCTION-followed by recurrent surgery because of abscess development. Leukocytosis is slightly better today. No fevers. She is having diarrhea. -C. difficile testing -Continue ceftriaxone and doxycycline -Continue probiotic -Postoperative care as per Dr. Bee -Symptomatic management of pain and nausea HYPOXIA-likely secondary to fluid overload with bilateral pleural effusions and atelectasis noted on CT scan. Edema is a little better again today. She is off supplemental oxygen as of this morning. -Hold off on diuresis today -Julian zaldivar -Reassess fluid status in a.m. Jonathon Valerio MD
[2019-09-19] MEDS: Bacitracin Oint 28.35 GM Tube TOP SCH ×2 (12:48→20:00)
[2019-09-19] MEDS: oxyCODONE 5 MG Tab PO PRN ×2 (12:48→19:19)
[2019-09-19] MEDS ORDERED: Loperamide 2 MG Cap PO PRN (14:13)
[2019-09-19] MEDS: Doxycycline 100 MG Cap PO SCH (20:00)
[2019-09-20] MEDS: oxyCODONE 5 MG Tab PO PRN ×6 (00:33→21:21)
[2019-09-20] MEDS: Acetaminophen 325 MG Tab PO PRN ×6 (00:33→21:21)
--- NOTE | 2019-09-20 08:22 | PN ---
DATE OF SERVICE: 09/20/2019 SUBJECTIVE: The patient is doing very well. Pain is well controlled. She does not have any positive vomiting or nausea today. No shortness of breath or chest pain. OBJECTIVE: VITAL SIGNS: Stable. She is afebrile. ABDOMEN: Incision healing well. ASSESSMENT AND PLAN: 1. Status post small bowel resection. 2. Fluid, electrolyte, and nutrition. She is on a regular diet. TPN has been discontinued. Labs continued to monitored by hospital service. 3. Gastrointestinal activity. Having 1 bowel movement. Clostridium difficile was negative. On a regular diet. 4. Antibiotics continue to be managed by the hospitalist service. Etiology of the elevated white blood cell count is still unknown. We will remove PICC line today and culture the tip. 5. General disposition. Aside from the white blood cell count, the patient is completely asymptomatic and is ready to be discharged. William Bee MD /[id number]
[2019-09-20] MEDS: Bacitracin Oint 28.35 GM Tube TOP SCH ×2 (08:36→21:26)
[2019-09-20] MEDS: Doxycycline 100 MG Cap PO SCH ×2 (08:37→21:21)
[2019-09-20] MEDS: cefTRIAXone 1 GM in Sodium Chloride 0.9% 50 ML IV SCH (08:37)
[2019-09-20] MEDS: Enoxaparin 40 MG/0.4 ML Syringe SUBCUT SCH (08:37)
[2019-09-20] MEDS: Lactobacillus Rhamnosus GG (Probiotic) Cap PO SCH ×2 (08:37→21:21)
--- NOTE | 2019-09-20 11:01 | PCM.CONSN ---
- General Info Date of Service: 09/20/19 Subjective Update: There were no acute events overnight. Abdominal pain is well controlled. No nausea. Diarrhea is better. She has not had any fevers. Strength is improving. She remains off supplemental oxygen. Lower extremity edema continues to improve. White blood cell count remains elevated but is essentially stable. Functional Status: Reports: Pain Controlled, Tolerating Diet - Review of Systems General: Denies: Fever Gastrointestinal: Reports: Abdominal Pain (mild ) - Patient Data Vitals - Most Recent: Last Vital Signs Temp 36.1 C 09/20/19 07:00 Pulse 90 09/20/19 07:00 Resp 18 09/20/19 07:00 BP 101/68 09/20/19 07:00 Pulse Ox 94 L 09/20/19 07:00 Weight - Most Recent: 53.252 kg I&O - Last 24 Hours: Intake & Output 09/19/19 09/20/19 09/20/19 22:59 06:59 14:59 Intake Total 343 740 670 Output Total 240 520 250 Balance 103 220 420 Lab Results Last 24 Hours: Laboratory Results - last 24 hr 09/20/19 09/20/19 Range/Units 06:53 06:53 WBC 23.3 H (4.5-11.0) K/uL RBC 3.19 L (3.30-5.50) M/uL Hgb 9.7 L (12.0-15.0) g/dL Hct 29.1 L (36.0-48.0) % MCV 91 (80-98) fL MCH 30 (27-31) pg MCHC 33 (32-36) % Plt Count 465 H (150-400) K/uL Sodium 137 L (140-148) mmol/L Potassium 3.9 (3.6-5.2) mmol/L Chloride 101 (100-108) mmol/L Carbon Dioxide 30 (21-32) mmol/L Anion Gap 9.9 (5.0-14.0) mmol/L BUN 22 H (7-18) mg/dL Creatinine 0.4 L (0.6-1.0) mg/dL Est Cr Clr Drug Dosing 114.73 mL/min Estimated GFR (MDRD) > 60 (>60) Glucose 77 (74-106) mg/dL Calcium 7.8 L (8.5-10.1) mg/dL Phosphorus 2.8 (2.5-4.9) mg/dL Magnesium 1.9 (1.8-2.4) mg/dL Juan Results Last 24 Hours: Microbiology 09/16/19 07:05 Aerobic Blood Culture - Preliminary Blood - Picc Line NO GROWTH AFTER 4 DAYS Anaerobic Blood Culture - Preliminary NO GROWTH AFTER 4 DAYS 09/16/19 07:20 Aerobic Blood Culture - Preliminary Blood - Arm, Left NO GROWTH AFTER 4 DAYS Anaerobic Blood Culture - Preliminary NO GROWTH AFTER 4 DAYS 09/19/19 12:50 Clostridioides difficile (PCR) - Final Stool / Feces Med Orders - Current: Current Medications Acetaminophen (Tylenol) 650 mg PO Q4H PRN PRN Reason: Pain/Fever Last Admin: 09/20/19 09:07 Dose: 650 mg Bacitracin (Bacitracin Oint) 0 gm TOP BID [facility] Last Admin: 09/20/19 08:36 Dose: 1 applic Benzocaine/Menthol (Cepacol Sore Throat) 1 lozenge MUCMEM Q1H PRN PRN Reason: Sore Throat Diphenhydramine HCl (Benadryl) 50 mg IVPUSH Q4H PRN PRN Reason: Itching Doxycycline Hyclate (Vibramycin) 100 mg PO BID [facility] Last Admin: 09/20/19 08:37 Dose: 100 mg Enoxaparin Sodium (Lovenox) 40 mg SUBCUT DAILY [facility] Last Admin: 09/20/19 08:37 Dose: 40 mg Fentanyl (Sublimaze) 10 - 30 mcg IVPUSH Q1H PRN PRN Reason: Pain (severe 7-10) Ceftriaxone Sodium 1 gm/ (Sodium Chloride) 50 mls @ 100 mls/hr IV Q24H [facility] Last Admin: 09/20/19 08:37 Dose: 100 mls/hr Lactobacillus Rhamnosus (Culturelle) 1 cap PO BID [facility] Last Admin: 09/20/19 08:37 Dose: 1 cap Loperamide HCl (Imodium) 2 mg PO Q4H PRN PRN Reason: Diarrhea Zolmitriptan 5mg (Ptom) 0 each PO ASDIRECTED PRN PRN Reason: MIGRAINES Last Admin: 09/16/19 05:12 Dose: 1 each Oxycodone HCl (Oxycodone) 5 - 10 mg PO Q4H PRN PRN Reason: Pain Last Admin: 09/20/19 09:07 Dose: 10 mg Sodium Chloride (Saline Flush) 10 ml FLUSH ASDIRECTED PRN PRN Reason: Keep Vein Open Last Admin: 09/12/19 17:03 Dose: 10 ml Zolpidem Tartrate (Ambien) 5 mg PO BEDTIME PRN PRN Reason: Insomnia Discontinued Medications Hydrocodone Bitart/Acetaminophen ([place] 325-5 Mg) 1 - 2 tab PO Q4H PRN PRN Reason: mild to mod (1-6) Abd Pain Last Admin: 09/19/19 09:23 Dose: 2 tab Bupivacaine HCl/Epinephrine Bitart (Marcaine 0.5%/Epinephrine 1:200,000) Confirm Administered Dose 50 ml .ROUTE .STK-MED ONE Stop: 09/12/19 19:44 Last Admin: 09/12/19 21:10 Dose: 35 ml Dexamethasone (Dexamethasone) Confirm Administered Dose 4 mg .ROUTE .STK-MED ONE Stop: 09/12/19 19:50 Dexamethasone (Dexamethasone) Confirm Administered Dose 8 mg .ROUTE .STK-MED ONE Stop: 09/12/19 19:55 Epinephrine HCl (Adrenalin) Confirm Administered Dose 1 mg .ROUTE .STK-MED ONE Stop: 09/12/19 19:55 Fentanyl (Sublimaze) 50 mcg IVPUSH ONETIME ONE Stop: 09/12/19 16:49 Last Admin: 09/12/19 17:01 Dose: 50 mcg Fentanyl (Sublimaze) Confirm Administered Dose 250 mcg .ROUTE .STK-MED ONE Stop: 09/12/19 19:51 Furosemide (Lasix) 10 mg IVPUSH ONETIME ONE Stop: 09/15/19 16:55 Last Admin: 09/15/19 18:05 Dose: 10 mg Furosemide (Lasix) Confirm Administered Dose 20 mg .ROUTE .STK-MED ONE Stop: 09/15/19 18:03 Last Admin: 09/15/19 18:06 Dose: Not Given Furosemide (Lasix) 10 mg IVPUSH ONETIME ONE Stop: 09/15/19 20:31 Last Admin: 09/15/19 21:33 Dose: 10 mg Furosemide (Lasix) 10 mg IVPUSH ONETIME ONE Stop: 09/16/19 15:31 Last Admin: 09/16/19 15:24 Dose: 10 mg Furosemide (Lasix) 40 mg IVPUSH ONETIME ONE Stop: 09/17/19 11:01 Last Admin: 09/17/19 12:52 Dose: 40 mg Furosemide (Lasix) 40 mg IVPUSH Q8H [facility] Stop: 09/18/19 16:31 Last Admin: 09/18/19 16:08 Dose: 40 mg Glycopyrrolate (Robinul) Confirm Administered Dose 1 mg .ROUTE .STK-MED ONE Stop: 09/12/19 19:50 Hydromorphone HCl (Dilaudid) Confirm Administered Dose 0.5 mg .ROUTE .STK-MED ONE Stop: 09/12/19 21:56 Last Admin: 09/12/19 22:11 Dose: Not Given Hydromorphone HCl (Dilaudid) 0.5 mg IVPUSH ONETIME ONE Stop: 09/12/19 22:03 Last Admin: 09/12/19 22:12 Dose: 0.5 mg Hydromorphone HCl (Dilaudid) 0.5 mg IVPUSH ONETIME ONE Stop: 09/12/19 22:09 Last Admin: 09/12/19 22:32 Dose: Not Given Hydromorphone HCl (Dilaudid Respiratory Manager 15 Mg In Ns 30 Ml) 0 mg IV ASDIRECTED PRN; Protocol PRN Reason: Pain Last Admin: 09/16/19 15:20 Dose: 15 mg Hydroxyzine HCl (Vistaril) 100 mg IM Q4H PRN PRN Reason: Nausea Lactated Ringer's (Ringers, Lactated) 1,000 mls @ 999 mls/hr IV ASDIRECTED [facility] Last Admin: 09/12/19 17:04 Dose: 999 mls/hr Piperacillin Sod/Tazobactam (Sod 4.5 gm/ Sodium Chloride) 100 mls @ 100 mls/hr IV ONETIME ONE Stop: 09/12/19 20:13 Last Admin: 09/12/19 19:29 Dose: 100 mls/hr Sodium Chloride (Normal Saline) 1,000 mls @ 30 mls/hr IV ASDIRECTED [facility] Last Admin: 09/19/19 00:33 Dose: 30 mls/hr Sodium Chloride (Normal Saline) Confirm Administered Dose 500 mls @ as directed .ROUTE .STK-MED ONE Stop: 09/12/19 20:05 Piperacillin Sod/Tazobactam (Sod 4.5 gm/ Sodium Chloride) 100 mls @ 100 mls/hr IV Q6H [facility] Last Admin: 09/13/19 02:05 Dose: 100 mls/hr Sodium Chloride (Normal Saline) 250 mls @ 250 mls/hr IV ONETIME ONE Stop: 09/13/19 03:29 Last Admin: 09/13/19 02:39 Dose: 250 mls/hr Sodium Chloride (Normal Saline) 250 mls @ 250 mls/hr IV ONETIME ONE Stop: 09/13/19 06:30 Last Admin: 09/13/19 05:30 Dose: 250 mls/hr Piperacillin/Tazobactam/ (Dextrose 4.5 gm/ Premix) 100 mls @ 200 mls/hr IV Q6H [facility] Last Admin: 09/13/19 08:16 Dose: 200 mls/hr Meropenem 1 gm/ Sodium (Chloride) 100 mls @ 200 mls/hr IV Q8H [facility] Last Admin: 09/18/19 01:36 Dose: 200 mls/hr Meropenem 1 gm/ Sodium (Chloride) 100 mls @ 200 mls/hr IV ONETIME ONE Stop: 09/13/19 11:29 Last Admin: 09/13/19 11:18 Dose: 200 mls/hr Multivitamins/Minerals 10 ml/Chromium/Copper/Manganese/Seleni/Zn 1 ml/ Amino Ac/ Electrol/Dextrose/Calcium 1,011 mls @ 70 mls/hr IV .BY DURATION [facility] Stop: 09/14/19 16:20 Last Admin: 09/13/19 15:53 Dose: 70 mls/hr Amino Ac/Electrol/Dextrose/Calcium (Clinimix E 10/11) 1,000 mls @ 70 mls/hr IV .BY DURATION [facility] Stop: 09/14/19 16:20 Last Admin: 09/14/19 07:43 Dose: 70 mls/hr Fat Emulsion Intravenous (Intralipid 20%) 100 mls @ 8.3 mls/hr IV Q24H [facility] Last Admin: 09/17/19 15:04 Dose: 8.3 mls/hr Multivitamins/Minerals 10 ml/Chromium/Copper/Manganese/Seleni/Zn 1 ml/ Amino Ac/ Electrol/Dextrose/Calcium 1,011 mls @ 70 mls/hr IV .BY DURATION [facility] Stop: 09/15/19 20:00 Last Admin: 09/14/19 17:15 Dose: 70 mls/hr Amino Ac/Electrol/Dextrose/Calcium (Clinimix E 5/15) 1,000 mls @ 70 mls/hr IV .BY DURATION [facility] Stop: 09/15/19 20:00 Last Admin: 09/15/19 09:13 Dose: 70 mls/hr Multivitamins/Minerals 10 ml/Chromium/Copper/Manganese/Seleni/Zn 1 ml/ Amino Ac/ Electrol/Dextrose/Calcium 1,011 mls @ 70 mls/hr IV .BY DURATION [facility] Stop: 09/16/19 13:30 Last Admin: 09/15/19 23:44 Dose: 70 mls/hr Amino Ac/Electrol/Dextrose/Calcium (Clinimix E 5/15) 1,000 mls @ 70 mls/hr IV .BY DURATION [facility] Stop: 09/16/19 13:30 Vancomycin HCl 0.75 gm/ Sodium (Chloride) 250 mls @ 166.667 mls/hr IV Q12H [facility] Last Admin: 09/15/19 22:13 Dose: 166.667 mls/hr Vancomycin HCl 1 gm/ Sodium (Chloride) 250 mls @ 166.667 mls/hr IV Q12H [facility] Last Admin: 09/17/19 21:25 Dose: 166.667 mls/hr Levofloxacin/Dextrose 750 mg/ (Premix) 150 mls @ 100 mls/hr IV Q24H [facility] Last Admin: 09/17/19 12:55 Dose: 100 mls/hr Multivitamins/Minerals 10 ml/Chromium/Copper/Manganese/Seleni/Zn 1 ml/ Amino Ac/ Electrol/Dextrose/Calcium 1,011 mls @ 70 mls/hr IV .BY DURATION [facility] Last Admin: 09/17/19 19:14 Dose: 70 mls/hr Amino Ac/Electrol/Dextrose/Calcium (Clinimix E 5/15) 1,000 mls @ 70 mls/hr IV .BY DURATION [facility] Last Admin: 09/17/19 04:39 Dose: 70 mls/hr Sodium Chloride (Normal Saline) 100 mls @ 3.5 mls/sec IV ASDIRECTED [facility] Stop: 09/16/19 12:31 Last Admin: 09/16/19 13:06 Dose: 4 mls/sec Levofloxacin/Dextrose 750 mg/ (Premix) 150 mls @ 100 mls/hr IV Q24H [facility] Doxycycline Hyclate 100 mg/ (Sodium Chloride) 100 mls @ 100 mls/hr IV Q12H [facility] Last Admin: 09/19/19 10:28 Dose: 100 mls/hr Magnesium Sulfate 2 gm/ Premix 50 mls @ 25 mls/hr IV ONETIME ONE Stop: 09/19/19 11:59 Last Admin: 09/19/19 11:27 Dose: 25 mls/hr Iohexol (Omnipaque-300) 50 ml PO .ASDIRECTED [facility] Stop: 09/15/19 14:01 Iohexol (Omnipaque) Confirm Administered Dose 30 ml .ROUTE .STK-MED ONE Stop: 09/15/19 14:50 Last Admin: 09/15/19 14:55 Dose: 30 ml Iopamidol (Isovue-370 (76%)) 100 ml IV . DIRECTED [facility] Stop: 09/16/19 12:31 Last Admin: 09/16/19 13:06 Dose: 100 ml Ketorolac Tromethamine (Toradol) Confirm Administered Dose 60 mg .ROUTE .STK- MED ONE Stop: 09/12/19 21:12 Meropenem (Merrem) Confirm Administered Dose 500 mg .ROUTE .STK-MED ONE Stop: 09/12/19 20:43 Last Admin: 09/12/19 20:45 Dose: 500 mg Morphine Sulfate (Morphine Respiratory Manager 150 Mg In 30 Ml) 0 mg IV ASDIRECTED PRN; Protocol PRN Reason: Pain Naloxone HCl (Narcan) 0.1 mg IV ASDIRECTED PRN PRN Reason: decreased respiratory rate Stop: 09/13/19 00:04 Naloxone HCl (Narcan) 0.4 mg IVPUSH Q2M PRN PRN Reason: Respiratory Distress Neostigmine Methylsulfate (Neostigmine) Confirm Administered Dose 5 mg .ROUTE .STK-MED ONE Stop: 09/12/19 19:50 Non-Formulary Medication (Total Parenteral Nutrition, Central) 0 ml IV ONETIME [facility] Stop: 09/14/19 14:00 Non-Formulary Medication (Total Parenteral Nutrition, Central) 1,000 ml .XX .Continue Order [facility]; Protocol Stop: 09/17/19 16:00 Ondansetron HCl (Zofran) 4 mg IVPUSH ONETIME ONE Stop: 09/12/19 16:50 Last Admin: 09/12/19 16:59 Dose: 4 mg Ondansetron HCl (Zofran) Confirm Administered Dose 4 mg .ROUTE .STK-MED ONE Stop: 09/12/19 19:50 Propofol (Diprivan 20 Ml) Confirm Administered Dose 200 mg .ROUTE .STK-MED ONE Stop: 09/12/19 19:50 Rocuronium [place] (Zemuron) Confirm Administered Dose 50 mg .ROUTE .STK-MED ONE Stop: 09/12/19 19:50 Ropivacaine (Naropin 0.5%) 30 ml .ROUTE .STK-MED ONE Stop: 09/12/19 19:55 Sodium Chloride (Saline Flush) 10 ml FLUSH ONETIME ONE Stop: 09/16/19 12:29 Last Admin: 09/16/19 13:06 Dose: 10 ml Succinylcholine Chloride (Quelicin) Confirm Administered Dose 200 mg .ROUTE .STK -MED ONE Stop: 09/12/19 19:50 Vancomycin HCl (Vancomycin) 1 gm IV .PHARMACY TO DOSE [facility] Stop: 09/16/19 08:00 - Exam Quality Assessment: No: Supplemental Oxygen General: Alert, Oriented, Cooperative, No Acute Distress Lungs: Clear to Auscultation, Normal Respiratory Effort Cardiovascular: Regular Rate, Regular Rhythm GI/Abdominal Exam: Soft, No Distention Extremities: No Pedal Edema Wound/Incisions: No Drainage, Erythema (mild suprapubic), Other (possible fluid collection/fluctuance suprapubic area ) Sepsis Event Note - Evaluation Sepsis Screening Result: No Definite Risk - Focused Exam Vital Signs: Vital Signs Temp Pulse Resp BP Pulse Ox 09/20/19 07:00 36.1 C 90 18 101/68 94 L 09/20/19 02:00 36.0 C L 91 16 110/61 93 L Date Exam was Performed: 09/20/19 Time Exam was Performed: 15:39 Consult PN Assessment/Plan Procedures: Procedures ASSAY OF LACTIC ACID (09/01/19) ASSAY OF LIPASE (09/01/19) ASSAY OF VANCOMYCIN (09/01/19) ASSAY THYROID STIM HORMONE (09/01/19) COMPLETE CBC AUTOMATED (09/01/19) COMPLETE CBC W/AUTO DIFF WBC (09/01/19) COMPREHEN METABOLIC PANEL (09/01/19) CT ABD & PELV W/CONTRAST (09/01/19) CT ABD & PELVIS W/O CONTRAST (08/11/19) CULTR BACTERIA EXCEPT BLOOD (08/11/19) CULTURE AEROBIC IDENTIFY (09/01/19) CULTURE OTHR SPECIMN AEROBIC (09/01/19) EMERGENCY DEPT VISIT (09/01/19) EMERGENCY DEPT VISIT (09/01/19) EMERGENCY DEPT VISIT (08/11/19) EMERGENCY DEPT VISIT (08/11/19) HYDRATE IV INFUSION ADD-ON (09/01/19) METABOLIC PANEL TOTAL CA (09/01/19) MICROBE SUSCEPTIBLE JUAN (09/01/19) REMOVAL OF SMALL INTESTINE (09/01/19) ROUTINE VENIPUNCTURE (09/01/19) SMEAR GRAM STAIN (09/01/19) THER/PROPH/DIAG INJ IV PUSH (09/01/19) TISSUE EXAM BY PATHOLOGIST (09/01/19) TX/PRO/DX INJ NEW DRUG ADDON (09/01/19) URINALYSIS AUTO W/SCOPE (09/01/19) WITHDRAWAL OF ARTERIAL BLOOD (08/11/19) X-RAY EXAM ABDOMEN 1 VIEW (09/01/19) X-RAY EXAM ABDOMEN 2 VIEWS (08/11/19) X-RAY EXAM CHEST 2 VIEWS (09/01/19) Problem List Initiated/Reviewed/Updated: Yes My Orders Last 24 Hours: My Active Orders 09/19/19 11:51 Acetaminophen [Tylenol] 650 mg PO Q4H PRN oxyCODONE 5 - 10 mg PO Q4H PRN 09/19/19 12:00 Bacitracin [Bacitracin Oint] 0 gm TOP BID 09/19/19 14:13 Loperamide [Imodium] 2 mg PO Q4H PRN 09/19/19 21:00 Doxycycline [Vibramycin] 100 mg PO BID 09/20/19 10:54 Abdomen Ltd [US] Routine Plan: ASSESSMENT AND RECOMMENDATIONS- STATUS POST INITIAL EXPLORATORY LAPAROTOMY FOR SMALL BOWEL OBSTRUCTION-followed by recurrent surgery because of abscess development. Leukocytosis is stable but not improving as expected. She is not having fevers. C. difficile testing was negative. She does have a possible fluid collection in the suprapubic area and an ultrasound will be obtained. -Limited abdominal ultrasound of the suprapubic area -Continue ceftriaxone and doxycycline -Continue probiotic -Postoperative care as per Dr. Bee -Symptomatic management of pain and nausea HYPOXIA-likely secondary to fluid overload with bilateral pleural effusions and atelectasis noted on CT scan. Edema has essentially resolved and she is off supplemental oxygen. -Hold off on diuresis today -Julian stockings -Reassess fluid status in a.m. Jonathon Valerio MD
--- NOTE | 2019-09-20 15:17 | US ---
Abdomen Ltd CLINICAL HISTORY: Suprapubic fluid collection FINDINGS: Real-time images were obtained across the suprapubic region. To the right of midline there is a fluid collection measuring 6.2 x 2.1 x 5.0 cm. There is no internal flow The midportion is approximately 2 cm deep within the subcutaneous tissue. IMPRESSION: 6.2 x 2.1 x 5.0 cm right suprapubic fluid collection described above
[2019-09-20] MEDS ORDERED: Sodium Chloride 0.9% 10 ML SDV IV SCH (15:30)
[2019-09-20] MEDS ORDERED: Sodium Chloride 0.9% 1,000 ML IV SCH (23:58)
[2019-09-21] MEDS: oxyCODONE 5 MG Tab PO PRN ×3 (03:40→20:03)
[2019-09-21] MEDS ORDERED: Lidocaine 1% with EPINEPHrine 1:100,000 50 ML MDV ONE (06:39)
[2019-09-21] MEDS ORDERED: Bupivacaine 0.5% 50 ML MDV ONE (06:39)
[2019-09-21] MEDS ORDERED: fentaNYL 250 MCG/5 ML SDV ONE (07:22)
[2019-09-21] MEDS ORDERED: Propofol 200 MG/20 ML SDV ONE (07:23)
[2019-09-21] MEDS ORDERED: Midazolam 1 MG/ML 2 ML SDV ONE (07:24)
--- NOTE | 2019-09-21 10:13 | PCM.CONSN ---
- General Info Date of Service: 09/21/19 Subjective Update: There were no acute events overnight. No fevers. Vital signs stable. She did use supplemental oxygen overnight. She had an attempted drainage of what we thought was an abscess in the suprapubic area but there was no significant fluid noted with needle insertion. White count is slightly higher today. Clinically she is feeling well. Minimal lower extremity edema. Functional Status: Reports: Pain Controlled, Tolerating Diet - Review of Systems General: Denies: Fever Cardiovascular: Reports: Edema Gastrointestinal: Reports: Abdominal Pain - Patient Data Vitals - Most Recent: Last Vital Signs Temp 36.0 C L 09/21/19 08:37 Pulse 70 09/21/19 08:37 Resp 16 09/21/19 08:37 BP 106/66 09/21/19 08:37 Pulse Ox 96 09/21/19 08:37 Weight - Most Recent: 53.977 kg I&O - Last 24 Hours: Intake & Output 09/20/19 09/21/19 09/21/19 22:59 06:59 14:59 Intake Total 500 649 Output Total 340 462 Balance 160 187 Lab Results Last 24 Hours: Laboratory Results - last 24 hr 09/21/19 09/21/19 09/21/19 Range/Units 06:49 06:49 07:00 WBC 24.5 H (4.5-11.0) K/uL RBC (3.30-5.50) M/uL Hgb (12.0-15.0) g/dL Hct (36.0-48.0) % MCV (80-98) fL MCH (27-31) pg MCHC (32-36) % Plt Count (150-400) K/uL Sodium 138 L (140-148) mmol/L Potassium 4.1 (3.6-5.2) mmol/L Chloride 103 (100-108) mmol/L Carbon Dioxide 30 (21-32) mmol/L Anion Gap 9.1 (5.0-14.0) mmol/L BUN 16 (7-18) mg/dL Creatinine 0.4 L (0.6-1.0) mg/dL Est Cr Clr Drug Dosing 116.29 mL/min Estimated GFR (MDRD) > 60 (>60) Glucose 78 (74-106) mg/dL Calcium 7.7 L (8.5-10.1) mg/dL Phosphorus 3.1 (2.5-4.9) mg/dL Magnesium 1.7 L (1.8-2.4) mg/dL 09/21/19 Range/Units 09:58 WBC 24.6 H (4.5-11.0) K/uL RBC 2.93 L (3.30-5.50) M/uL Hgb 8.7 L (12.0-15.0) g/dL Hct 27.1 L (36.0-48.0) % MCV 93 (80-98) fL MCH 30 (27-31) pg MCHC 32 (32-36) % Plt Count 473 H (150-400) K/uL Sodium (140-148) mmol/L Potassium (3.6-5.2) mmol/L Chloride (100-108) mmol/L Carbon Dioxide (21-32) mmol/L Anion Gap (5.0-14.0) mmol/L BUN (7-18) mg/dL Creatinine (0.6-1.0) mg/dL Est Cr Clr Drug Dosing mL/min Estimated GFR (MDRD) (>60) Glucose (74-106) mg/dL Calcium (8.5-10.1) mg/dL Phosphorus (2.5-4.9) mg/dL Magnesium (1.8-2.4) mg/dL Juan Results Last 24 Hours: Microbiology 09/21/19 07:43 Gram Stain - Final Abdominal Fluid - Aspirate 09/16/19 07:05 Aerobic Blood Culture - Final Blood - Picc Line NO GROWTH AFTER 5 DAYS Anaerobic Blood Culture - Final NO GROWTH AFTER 5 DAYS 09/16/19 07:20 Aerobic Blood Culture - Final Blood - Arm, Left NO GROWTH AFTER 5 DAYS Anaerobic Blood Culture - Final NO GROWTH AFTER 5 DAYS 09/20/19 08:09 Catheter Tip Culture - Preliminary Catheter Tip Other - Periph Insert Central Cath NO GROWTH AFTER 1 DAY Med Orders - Current: Current Medications Acetaminophen (Tylenol) 650 mg PO Q4H PRN PRN Reason: Pain/Fever Last Admin: 09/20/19 21:21 Dose: 650 mg Bacitracin (Bacitracin Oint) 0 gm TOP BID DEBI Last Admin: 09/20/19 21:26 Dose: Not Given Benzocaine/Menthol (Cepacol Sore Throat) 1 lozenge MUCMEM Q1H PRN PRN Reason: Sore Throat Diphenhydramine HCl (Benadryl) 50 mg IVPUSH Q4H PRN PRN Reason: Itching Doxycycline Hyclate (Vibramycin) 100 mg PO BID [facility] Last Admin: 09/20/19 21:21 Dose: 100 mg Enoxaparin Sodium (Lovenox) 40 mg SUBCUT DAILY [facility] Last Admin: 09/20/19 08:37 Dose: 40 mg Fentanyl (Sublimaze) 10 - 30 mcg IVPUSH Q1H PRN PRN Reason: Pain (severe 7-10) Ceftriaxone Sodium 1 gm/ (Sodium Chloride) 50 mls @ 100 mls/hr IV Q24H [facility] Last Admin: 09/20/19 08:37 Dose: 100 mls/hr Lactobacillus Rhamnosus (Culturelle) 1 cap PO BID [facility] Last Admin: 09/20/19 21:21 Dose: 1 cap Loperamide HCl (Imodium) 2 mg PO Q4H PRN PRN Reason: Diarrhea Zolmitriptan 5mg (Ptom) 0 each PO ASDIRECTED PRN PRN Reason: MIGRAINES Last Admin: 09/16/19 05:12 Dose: 1 each Oxycodone HCl (Oxycodone) 5 - 10 mg PO Q4H PRN PRN Reason: Pain Last Admin: 09/21/19 03:40 Dose: 10 mg Sodium Chloride (Saline Flush) 10 ml FLUSH ASDIRECTED PRN PRN Reason: Keep Vein Open Last Admin: 09/12/19 17:03 Dose: 10 ml Zolpidem Tartrate (Ambien) 5 mg PO BEDTIME PRN PRN Reason: Insomnia Discontinued Medications Hydrocodone Bitart/Acetaminophen (Wolf 325-5 Mg) 1 - 2 tab PO Q4H PRN PRN Reason: mild to mod (1-6) Abd Pain Last Admin: 09/19/19 09:23 Dose: 2 tab Bupivacaine HCl (Marcaine 0.5%) Confirm Administered Dose 50 ml .ROUTE .STK-MED ONE Stop: 09/21/19 06:40 Last Admin: 09/21/19 08:17 Dose: 2.5 ml Bupivacaine HCl/Epinephrine Bitart (Marcaine 0.5%/Epinephrine 1:200,000) Confirm Administered Dose 50 ml .ROUTE .STK-MED ONE Stop: 09/12/19 19:44 Last Admin: 09/12/19 21:10 Dose: 35 ml Dexamethasone (Dexamethasone) Confirm Administered Dose 4 mg .ROUTE .STK-MED ONE Stop: 09/12/19 19:50 Dexamethasone (Dexamethasone) Confirm Administered Dose 8 mg .ROUTE .STK-MED ONE Stop: 09/12/19 19:55 Epinephrine HCl (Adrenalin) Confirm Administered Dose 1 mg .ROUTE .STK-MED ONE Stop: 09/12/19 19:55 Fentanyl (Sublimaze) 50 mcg IVPUSH ONETIME ONE Stop: 09/12/19 16:49 Last Admin: 09/12/19 17:01 Dose: 50 mcg Fentanyl (Sublimaze) Confirm Administered Dose 250 mcg .ROUTE .STK-MED ONE Stop: 09/12/19 19:51 Fentanyl (Sublimaze) Confirm Administered Dose 250 mcg .ROUTE .STK-MED ONE Stop: 09/21/19 07:23 Furosemide (Lasix) 10 mg IVPUSH ONETIME ONE Stop: 09/15/19 16:55 Last Admin: 09/15/19 18:05 Dose: 10 mg Furosemide (Lasix) Confirm Administered Dose 20 mg .ROUTE .STK-MED ONE Stop: 09/15/19 18:03 Last Admin: 09/15/19 18:06 Dose: Not Given Furosemide (Lasix) 10 mg IVPUSH ONETIME ONE Stop: 09/15/19 20:31 Last Admin: 09/15/19 21:33 Dose: 10 mg Furosemide (Lasix) 10 mg IVPUSH ONETIME ONE Stop: 09/16/19 15:31 Last Admin: 09/16/19 15:24 Dose: 10 mg Furosemide (Lasix) 40 mg IVPUSH ONETIME ONE Stop: 09/17/19 11:01 Last Admin: 09/17/19 12:52 Dose: 40 mg Furosemide (Lasix) 40 mg IVPUSH Q8H DEBI Stop: 09/18/19 16:31 Last Admin: 09/18/19 16:08 Dose: 40 mg Glycopyrrolate (Robinul) Confirm Administered Dose 1 mg .ROUTE .STK-MED ONE Stop: 09/12/19 19:50 Hydromorphone HCl (Dilaudid) Confirm Administered Dose 0.5 mg .ROUTE .STK-MED ONE Stop: 09/12/19 21:56 Last Admin: 09/12/19 22:11 Dose: Not Given Hydromorphone HCl (Dilaudid) 0.5 mg IVPUSH ONETIME ONE Stop: 09/12/19 22:03 Last Admin: 09/12/19 22:12 Dose: 0.5 mg Hydromorphone HCl (Dilaudid) 0.5 mg IVPUSH ONETIME ONE Stop: 09/12/19 22:09 Last Admin: 09/12/19 22:32 Dose: Not Given Hydromorphone HCl (Dilaudid Matlab Developer 15 Mg In Ns 30 Ml) 0 mg IV ASDIRECTED PRN; Protocol PRN Reason: Pain Last Admin: 09/16/19 15:20 Dose: 15 mg Hydroxyzine HCl (Vistaril) 100 mg IM Q4H PRN PRN Reason: Nausea Lactated Ringer's (Ringers, Lactated) 1,000 mls @ 999 mls/hr IV ASDIRECTED [facility] Last Admin: 09/12/19 17:04 Dose: 999 mls/hr Piperacillin Sod/Tazobactam (Sod 4.5 gm/ Sodium Chloride) 100 mls @ 100 mls/hr IV ONETIME ONE Stop: 09/12/19 20:13 Last Admin: 09/12/19 19:29 Dose: 100 mls/hr Sodium Chloride (Normal Saline) 1,000 mls @ 30 mls/hr IV ASDIRECTED [facility] Last Admin: 09/19/19 00:33 Dose: 30 mls/hr Sodium Chloride (Normal Saline) Confirm Administered Dose 500 mls @ as directed .ROUTE .STK-MED ONE Stop: 09/12/19 20:05 Piperacillin Sod/Tazobactam (Sod 4.5 gm/ Sodium Chloride) 100 mls @ 100 mls/hr IV Q6H [facility] Last Admin: 09/13/19 02:05 Dose: 100 mls/hr Sodium Chloride (Normal Saline) 250 mls @ 250 mls/hr IV ONETIME ONE Stop: 09/13/19 03:29 Last Admin: 09/13/19 02:39 Dose: 250 mls/hr Sodium Chloride (Normal Saline) 250 mls @ 250 mls/hr IV ONETIME ONE Stop: 09/13/19 06:30 Last Admin: 09/13/19 05:30 Dose: 250 mls/hr Piperacillin/Tazobactam/ (Dextrose 4.5 gm/ Premix) 100 mls @ 200 mls/hr IV Q6H [facility] Last Admin: 09/13/19 08:16 Dose: 200 mls/hr Meropenem 1 gm/ Sodium (Chloride) 100 mls @ 200 mls/hr IV Q8H [facility] Last Admin: 09/18/19 01:36 Dose: 200 mls/hr Meropenem 1 gm/ Sodium (Chloride) 100 mls @ 200 mls/hr IV ONETIME ONE Stop: 09/13/19 11:29 Last Admin: 09/13/19 11:18 Dose: 200 mls/hr Multivitamins/Minerals 10 ml/Chromium/Copper/Manganese/Seleni/Zn 1 ml/ Amino Ac/ Electrol/Dextrose/Calcium 1,011 mls @ 70 mls/hr IV .BY DURATION [facility] Stop: 09/14/19 16:20 Last Admin: 09/13/19 15:53 Dose: 70 mls/hr Amino Ac/Electrol/Dextrose/Calcium (Clinimix E 5/15) 1,000 mls @ 70 mls/hr IV .BY DURATION [facility] Stop: 09/14/19 16:20 Last Admin: 09/14/19 07:43 Dose: 70 mls/hr Fat Emulsion Intravenous (Intralipid 20%) 100 mls @ 8.3 mls/hr IV Q24H [facility] Last Admin: 09/17/19 15:04 Dose: 8.3 mls/hr Multivitamins/Minerals 10 ml/Chromium/Copper/Manganese/Seleni/Zn 1 ml/ Amino Ac/ Electrol/Dextrose/Calcium 1,011 mls @ 70 mls/hr IV .BY DURATION [facility] Stop: 09/15/19 20:00 Last Admin: 09/14/19 17:15 Dose: 70 mls/hr Amino Ac/Electrol/Dextrose/Calcium (Clinimix E 5/15) 1,000 mls @ 70 mls/hr IV .BY DURATION [facility] Stop: 09/15/19 20:00 Last Admin: 09/15/19 09:13 Dose: 70 mls/hr Multivitamins/Minerals 10 ml/Chromium/Copper/Manganese/Seleni/Zn 1 ml/ Amino Ac/ Electrol/Dextrose/Calcium 1,011 mls @ 70 mls/hr IV .BY DURATION [facility] Stop: 09/16/19 13:30 Last Admin: 09/15/19 23:44 Dose: 70 mls/hr Amino Ac/Electrol/Dextrose/Calcium (Clinimix E 5/15) 1,000 mls @ 70 mls/hr IV .BY DURATION [facility] Stop: 09/16/19 13:30 Vancomycin HCl 0.75 gm/ Sodium (Chloride) 250 mls @ 166.667 mls/hr IV Q12H [facility] Last Admin: 09/15/19 22:13 Dose: 166.667 mls/hr Vancomycin HCl 1 gm/ Sodium (Chloride) 250 mls @ 166.667 mls/hr IV Q12H [facility] Last Admin: 09/17/19 21:25 Dose: 166.667 mls/hr Levofloxacin/Dextrose 750 mg/ (Premix) 150 mls @ 100 mls/hr IV Q24H [facility] Last Admin: 09/17/19 12:55 Dose: 100 mls/hr Multivitamins/Minerals 10 ml/Chromium/Copper/Manganese/Seleni/Zn 1 ml/ Amino Ac/ Electrol/Dextrose/Calcium 1,011 mls @ 70 mls/hr IV .BY DURATION [facility] Last Admin: 09/17/19 19:14 Dose: 70 mls/hr Amino Ac/Electrol/Dextrose/Calcium (Clinimix E 5/15) 1,000 mls @ 70 mls/hr IV .BY DURATION [facility] Last Admin: 09/17/19 04:39 Dose: 70 mls/hr Sodium Chloride (Normal Saline) 100 mls @ 3.5 mls/sec IV ASDIRECTED [facility] Stop: 09/16/19 12:31 Last Admin: 09/16/19 13:06 Dose: 4 mls/sec Levofloxacin/Dextrose 750 mg/ (Premix) 150 mls @ 100 mls/hr IV Q24H [facility] Doxycycline Hyclate 100 mg/ (Sodium Chloride) 100 mls @ 100 mls/hr IV Q12H [facility] Last Admin: 09/19/19 10:28 Dose: 100 mls/hr Magnesium Sulfate 2 gm/ Premix 50 mls @ 25 mls/hr IV ONETIME ONE Stop: 09/19/19 11:59 Last Admin: 09/19/19 11:27 Dose: 25 mls/hr Sodium Chloride (Normal Saline) 1,000 mls @ 125 mls/hr IV ASDIRECTED [facility] Last Admin: 09/20/19 23:57 Dose: 125 mls/hr Iohexol (Omnipaque-300) 50 ml PO .ASDIRECTED [facility] Stop: 09/15/19 14:01 Iohexol (Omnipaque) Confirm Administered Dose 30 ml .ROUTE .STK-MED ONE Stop: 09/15/19 14:50 Last Admin: 09/15/19 14:55 Dose: 30 ml Iopamidol (Isovue-370 (76%)) 100 ml IV . DIRECTED [facility] Stop: 09/16/19 12:31 Last Admin: 09/16/19 13:06 Dose: 100 ml Ketorolac Tromethamine (Toradol) Confirm Administered Dose 60 mg .ROUTE .STK- MED ONE Stop: 09/12/19 21:12 Lidocaine/Epinephrine (Xylocaine 1% With Epinephrine 1:100,000) Confirm Administered Dose 50 ml .ROUTE .STK-MED ONE Stop: 09/21/19 06:40 Last Admin: 09/21/19 08:18 Dose: 2.5 ml Meropenem (Merrem) Confirm Administered Dose 500 mg .ROUTE .STK-MED ONE Stop: 09/12/19 20:43 Last Admin: 09/12/19 20:45 Dose: 500 mg Midazolam HCl (Versed 1 Mg/Ml) Confirm Administered Dose 2 mg .ROUTE .STK-MED ONE Stop: 09/21/19 07:25 Morphine Sulfate (Morphine Matlab Developer 150 Mg In 30 Ml) 0 mg IV ASDIRECTED PRN; Protocol PRN Reason: Pain Naloxone HCl (Narcan) 0.1 mg IV ASDIRECTED PRN PRN Reason: decreased respiratory rate Stop: 09/13/19 00:04 Naloxone HCl (Narcan) 0.4 mg IVPUSH Q2M PRN PRN Reason: Respiratory Distress Neostigmine Methylsulfate (Neostigmine) Confirm Administered Dose 5 mg .ROUTE .STK-MED ONE Stop: 09/12/19 19:50 Non-Formulary Medication (Total Parenteral Nutrition, Central) 0 ml IV ONETIME [facility] Stop: 09/14/19 14:00 Non-Formulary Medication (Total Parenteral Nutrition, Central) 1,000 ml .XX .Continue Order DEBI; Protocol Stop: 09/17/19 16:00 Ondansetron HCl (Zofran) 4 mg IVPUSH ONETIME ONE Stop: 09/12/19 16:50 Last Admin: 09/12/19 16:59 Dose: 4 mg Ondansetron HCl (Zofran) Confirm Administered Dose 4 mg .ROUTE .STK-MED ONE Stop: 09/12/19 19:50 Propofol (Diprivan 20 Ml) Confirm Administered Dose 200 mg .ROUTE .STK-MED ONE Stop: 09/12/19 19:50 Propofol (Diprivan 20 Ml) Confirm Administered Dose 200 mg .ROUTE .STK-MED ONE Stop: 09/21/19 07:24 Rocuronium Beaman (Zemuron) Confirm Administered Dose 50 mg .ROUTE .STK-MED ONE Stop: 09/12/19 19:50 Ropivacaine (Naropin 0.5%) 30 ml .ROUTE .STK-MED ONE Stop: 09/12/19 19:55 Sodium Chloride (Saline Flush) 10 ml FLUSH ONETIME ONE Stop: 09/16/19 12:29 Last Admin: 09/16/19 13:06 Dose: 10 ml Succinylcholine Chloride (Quelicin) Confirm Administered Dose 200 mg .ROUTE .STK -MED ONE Stop: 09/12/19 19:50 Vancomycin HCl (Vancomycin) 1 gm IV .PHARMACY TO DOSE [facility] Stop: 09/16/19 08:00 - Exam Quality Assessment: Supplemental Oxygen General: Alert, Oriented, Cooperative, No Acute Distress Lungs: Normal Respiratory Effort Cardiovascular: Regular Rate, Regular Rhythm GI/Abdominal Exam: Soft, No Distention Extremities: No Pedal Edema Skin: Warm, Dry Psy/Mental Status: Alert, Normal Affect Sepsis Event Note - Evaluation Sepsis Screening Result: No Definite Risk - Focused Exam Vital Signs: Vital Signs Temp Pulse Pulse Resp BP Pulse Ox 09/21/19 08:37 36.0 C L 70 16 106/66 96 09/21/19 08:15 36.3 C 85 14 123/81 96 09/21/19 08:10 88 14 117/74 95 09/21/19 08:05 84 14 123/82 98 09/21/19 08:00 89 12 117/77 98 09/21/19 07:55 36.8 C 87 12 117/80 98 09/21/19 03:47 36.8 C 106 H 16 117/69 85 L 09/20/19 23:00 36.6 C 90 16 108/67 91 L Date Exam was Performed: 09/21/19 Time Exam was Performed: 14:02 Consult PN Assessment/Plan Procedures: Procedures ASSAY OF LACTIC ACID (09/01/19) ASSAY OF LIPASE (09/01/19) ASSAY OF VANCOMYCIN (09/01/19) ASSAY THYROID STIM HORMONE (09/01/19) COMPLETE CBC AUTOMATED (09/01/19) COMPLETE CBC W/AUTO DIFF WBC (09/01/19) COMPREHEN METABOLIC PANEL (09/01/19) CT ABD & PELV W/CONTRAST (09/01/19) CT ABD & PELVIS W/O CONTRAST (08/11/19) CULTR BACTERIA EXCEPT BLOOD (08/11/19) CULTURE AEROBIC IDENTIFY (09/01/19) CULTURE OTHR SPECIMN AEROBIC (09/01/19) EMERGENCY DEPT VISIT (09/01/19) EMERGENCY DEPT VISIT (09/01/19) EMERGENCY DEPT VISIT (08/11/19) EMERGENCY DEPT VISIT (08/11/19) HYDRATE IV INFUSION ADD-ON (09/01/19) METABOLIC PANEL TOTAL CA (09/01/19) MICROBE SUSCEPTIBLE JUAN (09/01/19) REMOVAL OF SMALL INTESTINE (09/01/19) ROUTINE VENIPUNCTURE (09/01/19) SMEAR GRAM STAIN (09/01/19) THER/PROPH/DIAG INJ IV PUSH (09/01/19) TISSUE EXAM BY PATHOLOGIST (09/01/19) TX/PRO/DX INJ NEW DRUG ADDON (09/01/19) URINALYSIS AUTO W/SCOPE (09/01/19) WITHDRAWAL OF ARTERIAL BLOOD (08/11/19) X-RAY EXAM ABDOMEN 1 VIEW (09/01/19) X-RAY EXAM ABDOMEN 2 VIEWS (08/11/19) X-RAY EXAM CHEST 2 VIEWS (09/01/19) Problem List Initiated/Reviewed/Updated: Yes My Orders Last 24 Hours: My Active Orders 09/21/19 10:09 Convert IV to Saline Lock [OM.PC] Routine 09/21/19 10:10 Chest Abdomen Pelvis w Cont [CT] Routine Plan: ASSESSMENT AND RECOMMENDATIONS- STATUS POST INITIAL EXPLORATORY LAPAROTOMY FOR SMALL BOWEL OBSTRUCTION-followed by recurrent surgery because of abscess development. Leukocytosis has slowly increased over the past couple of days. No obvious source of infection at this time. No significant fluid in the suspected fluid collection/abscess in the suprapubic area. Clinically she is doing well. -CT scan of the chest, abdomen and pelvis -UA -Continue ceftriaxone and doxycycline -Continue probiotic -Postoperative care as per Dr. Bee -Symptomatic management of pain and nausea HYPOXIA-likely secondary to fluid overload with bilateral pleural effusions and atelectasis noted on CT scan. Edema is much better. Only needing oxygen at night. -Dose of furosemide today -Julian stockings -Reassess fluid status in a.m. Jonathon Valerio MD
[2019-09-21] MEDS: cefTRIAXone 1 GM in Sodium Chloride 0.9% 50 ML IV SCH (10:24)
[2019-09-21] MEDS: Enoxaparin 40 MG/0.4 ML Syringe SUBCUT SCH (10:25)
[2019-09-21] MEDS: Bacitracin Oint 28.35 GM Tube TOP SCH ×2 (10:25→20:02)
[2019-09-21] MEDS: Doxycycline 100 MG Cap PO SCH (10:25)
[2019-09-21] MEDS: Lactobacillus Rhamnosus GG (Probiotic) Cap PO SCH ×2 (10:25→20:03)
--- NOTE | 2019-09-21 10:39 | PN ---
DATE OF SERVICE: 09/21/2019 SUBJECTIVE: No specific change this morning. Pain is well controlled. No nausea, vomiting, shortness of breath, or chest pain. OBJECTIVE: VITAL SIGNS: Stable. Incision is healing well. ASSESSMENT/PLAN: To the OR for possible abscess drainage. We discussed risks, benefits, alternatives, and limitations including, but not limited to infection, bleeding, and injury to abdominal structures. William Bee MD /[id number]
[2019-09-21] MEDS ORDERED: Sodium Chloride 0.9% 10 ML Syringe FLUSH PRN (11:08)
[2019-09-21] MEDS ORDERED: Iopamidol 612 MG/ML 500 ML Multipack Bottle IV ONE (11:08)
--- NOTE | 2019-09-21 12:20 | CRLCT ---
INDICATION: Leukocytosis, hypoxia, abdominal pain TECHNIQUE: CT chest, abdomen and pelvis acquired with 100 cc Isovue-300 IV contrast. COMPARISON: September 15, 2019 FINDINGS: Chest: Cardiovascular structures: Heart size is normal. Thoracic aorta and main pulmonary artery are normal in caliber. Mediastinum and gareth: No mass or adenopathy. There are subcentimeter hypodense lesions and a 1.1 cm calcification in the thyroid gland. Lungs: Emphysema. Pleura and pericardium: Small bilateral pleural effusions, slightly increased in size compared to the prior study. Compressive atelectasis in both lobes. Likely consolidation in the left lower lobe, slightly improved compared to the prior exam. Chest wall and axilla: No mass or adenopathy. Bones: Unremarkable for age. Abdomen and Pelvis: Liver: Simple cysts in the liver. Spleen: Unremarkable. Pancreas: Unremarkable. Gallbladder and bile ducts: Unremarkable. Adrenal glands: Unremarkable. Kidneys: 2 mm nonobstructive right renal stone. GI tract: Anastomotic sutures in the right lower quadrant. There is mild wall thickening of several loops of small bowel and colon. No pneumatosis. No bowel dilatation. Postoperative air has resolved. No fluid collections seen Vascular structures: Unremarkable. Lymph nodes: Unremarkable. Miscellaneous: Status post midline laparotomy. There is a RONY drain in the pelvis, a RONY drain medial to the in RONY drain in the left upper abdomen. Diffuse anasarca and fat stranding throughout the mesentery. Pelvic Organs: Gas in the urinary bladder. 3.2 cm round hypodensity in the left uterus may represent a fibroid. Bones: Unremarkable for age. IMPRESSION: Slight increase in size of small bilateral pleural effusions. Compressive atelectasis in both lower lobes. Likely consolidation in the left lower lobe, improved compared to the prior exam. Emphysema. No drainable abscess within the peritoneum or retroperitoneum. Anasarca, diffuse fat stranding throughout the mesentery, and mild bowel wall thickening likely due to volume overload. Nonobstructive right nephrolithiasis. Gas in the urinary bladder may be secondary to recent instrumentation or infection. Correlate with urinalysis. Please note that all CT scans at this facility use dose modulation, iterative reconstruction, and/or weight-based dosing when appropriate to reduce radiation dose to as low as reasonably achievable. Dictated by Brianna George MD @ Sep 21 2019 12:02PM Signed by Dr. Brianna George @ Sep 21 2019 12:19PM
--- NOTE | 2019-09-21 12:25 | OR ---
DATE OF PROCEDURE: 09/21/2019 SURGEON: William Bee MD PROCEDURE: Ultrasound-guided abscess drainage. FINDINGS: Approximately 2 mL of fluid removed. INDICATIONS: A pleasant female with a 6-cm abscess noted on ultrasound. PREOPERATIVE DIAGNOSIS: Concern for abscess. POSTOPERATIVE DIAGNOSIS: Concern for abscess. RISKS: Risks, benefits, alternatives, and limitations including, but not limited to infection, bleeding, and injury to abdominal structures were explained and the patient wished to proceed. PROCEDURE IN DETAIL: The patient was placed in a supine position. The abdomen was prepped and draped. Anesthetic was MAC/local and the research food technologist identified the previous fluid collection. However, she felt that this had decreased in size significantly overnight. Nonetheless, an 18-gauge needle was used to advance directly into this; only 2 mL of fluid was able to be aspirated, and this was cultured. Dressings were applied. The patient tolerated the procedure well. William Bee MD /[id number]
[2019-09-21] MEDS ORDERED: Furosemide 40 MG/4 ML VIAL IVPUSH ONE (12:45)
[2019-09-21] MEDS: Acetaminophen 325 MG Tab PO PRN (20:03)
[2019-09-22] MEDS: oxyCODONE 5 MG Tab PO PRN ×2 (04:23→09:30)
[2019-09-22] MEDS ORDERED: Potassium Chloride 20 MEQ Tab.ER PO ONE (06:41)
[2019-09-22] MEDS ORDERED: Magnesium Sulfate/Water 2 GM in Premix Bag 1 BAG IV SCH ×2 (06:45→10:00)
[2019-09-22] MEDS: Bacitracin Oint 28.35 GM Tube TOP SCH (08:05)
[2019-09-22] MEDS: Lactobacillus Rhamnosus GG (Probiotic) Cap PO SCH (08:05)
[2019-09-22] MEDS: Enoxaparin 40 MG/0.4 ML Syringe SUBCUT SCH (08:05)
--- NOTE | 2019-09-24 09:16 | DISCH ---
DISCHARGE DIAGNOSIS: Status post small bowel resection. SUMMARY OF HOSPITAL COURSE: This is a pleasant 69-year-old female who had a small-bowel revision. The patient did well and continued to recover through her hospitalization. She did have a CT scan which showed oral contrast going into the colon. The patient's pain was well controlled. She had no nausea, vomiting, shortness of breath, or chest pain. Having normal bowel movements prior to discharge. The patient did have an elevated white blood cell count and was evaluated extensively for etiology of this white blood cell count. However, Hospitalist Service in conjunction with Surgical Services both agree that there is no definitive etiology of this. Please see today's progress note for further details on this discussion. Followup with Surgery in 7 days. The patient was also instructed the signs and symptoms of complication such as infection, abscess. We did discuss fevers, chills, nausea, vomiting, and other symptoms, she should contact us immediately with these noted problems. DISCHARGE MEDICATIONS: The patient will be sent home on Bactrim. Please see discharge MAR for further details.
--- NOTE | 2019-09-24 14:58 | PN ---
DATE OF SERVICE: 09/22/2019 SUBJECTIVE: The patient continues to do very well. Her pain is very minimal. No nausea, vomiting, shortness of breath, or chest pain. Having normal bowel movements. No fevers or chills. The patient is requesting to be discharged. OBJECTIVE: VITAL SIGNS: Stable. She is afebrile. CARDIOVASCULAR: Regular rhythm and rate. RESPIRATORY: Lungs are clear to auscultation bilaterally. ABDOMEN: Incision healing well. ASSESSMENT: Status post small bowel resection. PLAN: The patient will be discharged today. We did discuss the fact the patient's white count remains unchanged, despite CT scanning multiple times of chest, abdomen, and pelvis, repeating ultrasound, culturing any fluid, possibly removing all drains, culturing all tips, performing blood cultures, UAs, chest x-rays, and other modalities to further delineate the etiology of her white blood cell count. The patient was given the option to remain versus to be discharged. The patient is politely requesting to be discharged. I think this is a reasonable approach, as there are no other further interventions that we can perform nor any diagnostic tools to evaluate if she currently has an infection. Therefore, the patient will be discharged on Bactrim. Hospitalist Service, who was in agreement with this plan, will also comment on her additional medications. William Bee MD /[id number]
== END 2019-09-22 09:48 | disposition home or self-care (01) | DRG 856 ==
LOC: JP.ED 16:12 → JP.SDS 19:21 → JP.MS 19:59
PROVIDERS: ADMIT Surgery; ATTEND Surgery
PROC: 0DBB0ZZ Excision of Ileum, Open Approach (ICD-10-PCS; principal; 2019-09-12)
PROC: 0W9G00Z Drainage of Peritoneal Cavity with Drainage Device, Open Approach (ICD-10-PCS; 2019-09-12)
PROC: 3E0336Z Introduction of Nutritional Substance into Peripheral Vein, Percutaneous Approach (ICD-10-PCS; 2019-09-12)
PROC: 0W9G3ZZ Drainage of Peritoneal Cavity, Percutaneous Approach (ICD-10-PCS; 2019-09-21)
DX: R10.84 Generalized abdominal pain (principal); Z98.890 Other specified postprocedural states; T81.43XA Infection following a procedure, organ and space surgical site, initial encounter; K65.1 Peritoneal abscess; J90 Pleural effusion, not elsewhere classified; J98.11 Atelectasis; B96.1 Klebsiella pneumoniae [K. pneumoniae] as the cause of diseases classified elsewhere; B96.20 Unspecified Escherichia coli [E. coli] as the cause of diseases classified elsewhere; Z79.899 Other long term (current) drug therapy; Z90.49 Acquired absence of other specified parts of digestive tract; Z87.891 Personal history of nicotine dependence
CPT/HCPCS: 36415; 36569; 71260; 71275; 74018; 74018-26; 74019; 74176; 74177; 76705; 76705-26; 76998; 80048; 80053; 80076; 81001; 82962; 83605; 83690; 83735; 84100; 84478; 85025; 85027; 85048; 87040; 87070; 87075; 87077; 87186; 87205; 87493; 88307; 94762; 96361; 96365; 96375; 97116-GP; 97161-GP; 97530-GP; 99284; 99285-25; A9270-GY; C1751; J0171; J0330; J0696; J1100; J1170; J1650; J1885; J1940; J1956; J2185; J2250; J2405; J2543; J2704; J2710; J2795; J3010; J3370; J3475; J3490; J7030; J7040; J7050; J7120; Q9967